=== PATIENT | female | born 1955 | race Caucasian/White ===

== ENCOUNTER 2018-10-25 17:16 | Inpatient (IN) | payer BC, OTHER ==
[2018-10-25] MEDS ORDERED: Sodium Chloride 0.9% 1,000 ML IV ONE (17:25)
[2018-10-25] MEDS ORDERED: Ondansetron 4 MG/2 ML SDV IVPUSH ONE (17:30)
--- NOTE | 2018-10-25 17:49 | EDM.PDOC ---
ED HPI GENERAL MEDICAL PROBLEM - General Chief Complaint: Syncope Stated Complaint: AMB Time Seen by Provider: 10/25/18 17:19 Source of Information: Reports: Patient History Limitations: Reports: No Limitations - History of Present Illness INITIAL COMMENTS - FREE TEXT/NARRATIVE: HISTORY AND PHYSICAL: History of present illness: Patient is a 63-year-old female presents to the ED today via EMS with concern of episodes of syncope occurring over the past 2 weeks. Patient states over the past 2-3 days she had an increase in frequency of the episodes. Patient states the episodes have usually happen while she is sitting on the couch and hasn't sustained any injuries. Patient states today she had walked out to get the mail and then felt dizzy and fell over. Patient states she has right knee pain, right shoulder pain, and head pain. Patient states she has also been vomiting over the past 4 days and is having lower abdominal pain that she rates a consistent 6 out of 10. Patient states she has a history of diverticulitis in the past and thought maybe this is what was oncoming again. Patient states she has not ate or drank since Thursday (3 days ago). Patient has a history of hypertension, and thyroid issues but she is not sure specifically as to what. Patient did have rotator cuff surgery at the beginning of August on the right shoulder as well as limited range of motion of that shoulder following the surgery. Patient denies fever, chills, chest pain, shortness of breath, or cough. Denies neck stiff ness, change in vision. Denies diarrhea, constipation, or dysuria. Has not noted any blood in urine or stool. Review of systems: As per history of present illness and below otherwise all systems reviewed and negative. Past medical history: As per history of present illness and as reviewed below otherwise noncontributory. Surgical history: As per history of present illness and as reviewed below otherwise noncontributory. Social history: See social history for further information Family history: As per history of present illness and as reviewed below otherwise noncontributory. Physical exam: Physical exam is limited due to body habitus. General: Patient is alert, oriented, and in no acute distress. Patient laying comfortably on exam table. HEENT: Atraumatic, normocephalic, pupils equal and reactive bilaterally, negative for conjunctival pallor or scleral icterus, mucous membranes dry, TMs normal bilaterally, throat clear, neck supple, nontender, trachea midline. No drooling or trismus noted. No meningeal signs. No hot potato voice noted. Lungs: Clear to auscultation, breath sounds equal bilaterally, chest nontender. Heart: S1S2, regular rate and rhythm without overt murmur Abdomen: Soft, nondistended. Moderate pain to palpation of the generalized lower abdomen. Negative for masses or hepatosplenomegaly. Negative for costovertebral tenderness. Pelvis: Stable nontender. Genitourinary: Deferred. Rectal: Deferred. Skin: Intact, warm, dry. No lesions or rashes noted. Extremities: Negative for cords or calf pain. Neurovascular unremarkable. No obvious deformities of the complete spine. No obvious step-offs, crepitus, or pain with palpation of the complete spine. Patient does have full range of motion of bilateral lower extremities with mild pain with range of motion of the right knee. No obvious deformities of the lower extremity. Limited range of motion of the right shoulder due to pain. Radial pulses grossly intact with capillary refill less than 2 seconds. Neuro: Awake, alert, oriented. Cranial nerves II through XII unremarkable. Cerebellum unremarkable. Motor and sensory unremarkable throughout. Exam nonfocal. Notes: Dr. Alvares verbally involved in patient care. Consult to Dr. Tong and will admit inpatient. Dr. Louie, general surgery, made aware of patient's case. Voices understanding and is agreeable to plan of care. Denies any further questions or concerns at this time. Diagnostics: CBC, CMP, UA, lactate, blood cultures x 2, head CT, shoulder x-ray, knee x-ray, chest x-ray, EKG, troponin, abdominal pelvic CT Therapeutics: Saline, Mefoxin Impression: Diverticulitis r/o abscess Syncope, unspecified Leukocytosis Dehydration Urinary tract infection Anemia, unspecified Hypokalemia Plan: 1. Admit to inpatient to Dr. Tong. Definitive disposition and diagnosis as appropriate pending reevaluation and review of above. right knee Pain Score (Numeric/FACES): 6 - Related Data Allergies Allergy/AdvReac Type Severity Reaction Status Date / Time ciprofloxacin [From Cipro] Allergy Swelling Verified 10/25/18 17:21 ciprofloxacin HCl Allergy Swelling Verified 10/25/18 17:21 [From Cipro] Home Meds: Home Meds DULoxetine [Cymbalta] 60 mg PO DAILY 12/22/13 [History] Estrogens, Conjugated [Premarin] 0.625 mg PO DAILY 12/22/13 [History] Levothyroxine Sodium 88 mcg PO DAILY 12/22/13 [History] Telmisartan [Micardis] 80 mg PO DAILY 12/22/13 [History] Cyanocobalamin (Vitamin B-12) [B-12 Compliance] 1,000 mcg IJ ASDIRECTED [History] Pantoprazole [ProTONIX] 40 mg PO DAILY 10/25/18 [History] Triamterene/Hydrochlorothiazid [Triamterene-HCTZ 37.5-25 MG] 1 each PO DAILY [History] Past Medical History Cardiovascular History: Reports: Hypertension Gastrointestinal History: Reports: GERD Psychiatric History: Reports: Mood Swings Endocrine/Metabolic History: Reports: Hyperthyroidism - Infectious Disease History Infectious Disease History: Reports: None - Past Surgical History Head Surgeries/Procedures: Reports: None Female Surgical History: Reports: Hysterectomy Social & Family History - Family History Family Medical History: Noncontributory - Tobacco Use Smoking Status *Q: Never Smoker - Recreational Drug Use Recreational Drug Use: No ED ROS GENERAL - Review of Systems Review Of Systems: ROS reveals no pertinent complaints other than HPI. ED EXAM, GENERAL - Physical Exam Exam: See Below (See dictation) Course - Vital Signs Last Recorded V/S: Last Vital Signs Temp 36.3 C 10/25/18 17:21 Pulse 72 10/25/18 20:19 Resp 18 10/25/18 20:19 BP 102/57 L 10/25/18 20:19 Pulse Ox 95 10/25/18 20:19 Orthostatic Blood Pressure [ 84/54 Standing] Orthostatic Blood Pressure [ 101/63 Sitting] Orthostatic Blood Pressure [ 92/49 Supine] - Orders/Labs/Meds Orders: Active Orders 24 hr Category Date Time Status Admission Status [Patient Status] [ADT] Stat ADT 10/25/18 20:17 Active EKG Documentation Completion [RC] STAT Care 10/25/18 17:25 Active Orthostatic Vital Signs [RC] ASDIRECTED Care 10/25/18 17:30 Active CULTURE BLOOD [BC] Stat Lab 10/25/18 20:15 Received CULTURE BLOOD [BC] Stat Lab 10/25/18 20:26 Received CULTURE URINE [RM] Stat Lab 10/25/18 19:45 Received Sodium Chloride 0.9% [Normal Saline] 1,000 ml Med 10/25/18 20:30 Active IV STAT cefOXitin [Mefoxin in Dextrose,Iso-Osm 2 GM/50 ML] 2 gm Med 10/25/18 20:30 Active Premix Bag 1 bag IV ONETIME Blood Culture x2 Reflex Set [OM.PC] Stat Oth 10/25/18 20:02 Ordered Medication Orders Sodium Chloride (Normal Saline) 1,000 mls @ 125 mls/hr IV STAT LATOYA Last Admin: 10/25/18 20:31 Dose: 125 mls/hr Cefoxitin Sodium 2 gm/ Premix 50 mls @ 100 mls/hr IV ONETIME ONE Stop: 10/25/18 20:59 Last Admin: 10/25/18 20:32 Dose: 100 mls/hr Labs: Laboratory Tests 10/25/18 10/25/18 10/25/18 Range/Units 17:20 17:20 17:20 WBC 14.52 H (4.0-11.0) K/uL RBC 3.97 L (4.30-5.90) M/uL Hgb 11.3 L (12.0-16.0) g/dL Hct 35.7 L (36.0-46.0) % MCV 89.9 (80.0-98.0) fL MCH 28.5 (27.0-32.0) pg MCHC 31.7 (31.0-37.0) g/dL RDW Std Deviation 46.8 (28.0-62.0) fl RDW Coeff of Fernando 14 (11.0-15.0) % Plt Count 507 H (150-400) K/uL MPV 8.50 (7.40-12.00) fL Neut % (Auto) 70.5 (48.0-80.0) % Lymph % (Auto) 20.5 (16.0-40.0) % [place] % (Auto) 8.1 (0.0-15.0) % Eos % (Auto) 0.8 (0.0-7.0) % Baso % (Auto) 0.1 (0.0-1.5) % Neut # (Auto) 10.2 H (1.4-5.7) K/uL Lymph # (Auto) 3.0 H (0.6-2.4) K/uL [place] # (Auto) 1.2 H (0.0-0.8) K/uL Eos # (Auto) 0.1 (0.0-0.7) K/uL Baso # (Auto) 0.0 (0.0-0.1) K/uL Nucleated RBC % 0.0 /100WBC Nucleated RBCs # 0 K/uL Lactate (0.20-2.00) mmol/L Sodium 139 (136-145) mmol/L Potassium 3.0 L (3.5-5.1) mmol/L Chloride 101 (98-107) mmol/L Carbon Dioxide 26.9 (21.0-32.0) mmol/L BUN 17 (7.0-18.0) mg/dL Creatinine 1.0 (0.6-1.0) mg/dL Est Cr Clr Drug Dosing 53.91 mL/min Estimated GFR (MDRD) 56.0 ml/min Glucose 112 H (74-106) mg/dL Calcium 10.4 H (8.5-10.1) mg/dL Total Bilirubin 0.4 (0.2-1.0) mg/dL AST 10 L (15-37) IU/L ALT 22 (14-63) IU/L Alkaline Phosphatase 77 (46-116) U/L Troponin I < 0.050 (0.000-0.056) ng/mL Total Protein 8.0 (6.4-8.2) g/dL Albumin 3.1 L (3.4-5.0) g/dL Globulin 4.9 H (2.6-4.0) g/dL Albumin/Globulin Ratio 0.6 L (0.9-1.6) Lipase 43 L (73-393) U/L TSH 3rd Generation 2.77 (0.36-3.74) uIU/mL Urine Color Urine Appearance Urine pH (5.0-8.0) Ur Specific Lincoln (1.001-1.035) Urine Protein (NEGATIVE) mg/dL Urine Glucose (UA) (NEGATIVE) mg/dL Urine Ketones (NEGATIVE) mg/dL Urine Occult Blood (NEGATIVE) Urine Nitrite (NEGATIVE) Urine Bilirubin (NEGATIVE) Urine Urobilinogen (<2.0) EU/dL Ur Leukocyte Esterase (NEGATIVE) Urine RBC (0-2/HPF) Urine WBC (0-5/HPF) Ur Epithelial Cells (NONE-FEW) Urine Bacteria (NEGATIVE) Hyaline Casts (0-2/LPF) 10/25/18 10/25/18 Range/Units 19:45 20:02 WBC (4.0-11.0) K/uL RBC (4.30-5.90) M/uL Hgb (12.0-16.0) g/dL Hct (36.0-46.0) % MCV (80.0-98.0) fL MCH (27.0-32.0) pg MCHC (31.0-37.0) g/dL RDW Std Deviation (28.0-62.0) fl RDW Coeff of Fernando (11.0-15.0) % Plt Count (150-400) K/uL MPV (7.40-12.00) fL Neut % (Auto) (48.0-80.0) % Lymph % (Auto) (16.0-40.0) % [place] % (Auto) (0.0-15.0) % Eos % (Auto) (0.0-7.0) % Baso % (Auto) (0.0-1.5) % Neut # (Auto) (1.4-5.7) K/uL Lymph # (Auto) (0.6-2.4) K/uL [place] # (Auto) (0.0-0.8) K/uL Eos # (Auto) (0.0-0.7) K/uL Baso # (Auto) (0.0-0.1) K/uL Nucleated RBC % /100WBC Nucleated RBCs # K/uL Lactate 0.7 (0.20-2.00) mmol/L Sodium (136-145) mmol/L Potassium (3.5-5.1) mmol/L Chloride (98-107) mmol/L Carbon Dioxide (21.0-32.0) mmol/L BUN (7.0-18.0) mg/dL Creatinine (0.6-1.0) mg/dL Est Cr Clr Drug Dosing mL/min Estimated GFR (MDRD) ml/min Glucose (74-106) mg/dL Calcium (8.5-10.1) mg/dL Total Bilirubin (0.2-1.0) mg/dL AST (15-37) IU/L ALT (14-63) IU/L Alkaline Phosphatase (46-116) U/L Troponin I (0.000-0.056) ng/mL Total Protein (6.4-8.2) g/dL Albumin (3.4-5.0) g/dL Globulin (2.6-4.0) g/dL Albumin/Globulin Ratio (0.9-1.6) Lipase (73-393) U/L TSH 3rd Generation (0.36-3.74) uIU/mL Urine Color YELLOW Urine Appearance SLT CLOUDY Urine pH 6.5 (5.0-8.0) Ur Specific Lincoln 1.010 (1.001-1.035) Urine Protein NEGATIVE (NEGATIVE) mg/dL Urine Glucose (UA) NEGATIVE (NEGATIVE) mg/dL Urine Ketones NEGATIVE (NEGATIVE) mg/dL Urine Occult Blood NEGATIVE (NEGATIVE) Urine Nitrite NEGATIVE (NEGATIVE) Urine Bilirubin NEGATIVE (NEGATIVE) Urine Urobilinogen 0.2 (<2.0) EU/dL Ur Leukocyte Esterase SMALL H (NEGATIVE) Urine RBC 0-2 (0-2/HPF) Urine WBC 4-7 (0-5/HPF) Ur Epithelial Cells FEW (NONE-FEW) Urine Bacteria 1+ H (NEGATIVE) Hyaline Casts 0-1 (0-2/LPF) Meds: Medications Generic Name Dose Route Start Last Admin Trade Name Freq PRN Reason Stop Dose Admin Sodium Chloride 1,000 mls @ 125 mls/hr 10/25/18 20:30 10/25/18 20:31 Normal Saline IV 125 mls/hr STAT LATOYA Administration Cefoxitin Sodium 2 gm/ Premix 50 mls @ 100 mls/hr 10/25/18 20:30 10/25/18 20: 32 IV 10/25/18 20:59 100 mls/hr ONETIME ONE Administration Discontinued Medications Generic Name Dose Route Start Last Admin Trade Name Freq PRN Reason Stop Dose Admin Sodium Chloride 1,000 mls @ 999 mls/hr 10/25/18 17:25 10/25/18 17:32 Normal Saline IV 10/25/18 18:25 999 mls/hr BOLUS ONE Administration Cefoxitin Sodium 2 gm/ Sodium 100 mls @ 200 mls/hr 10/25/18 20:15 10/25/18 20 :31 Chloride IV 10/25/18 20:44 Not Given ONETIME ONE Iopamidol 80 ml 10/25/18 18:42 10/25/18 18:42 Isovue Multipack-370 (76%) IVPUSH 10/25/18 18:43 80 ml ONETIME STA Administration Ondansetron HCl 4 mg 10/25/18 17:30 10/25/18 17:34 Zofran IVPUSH 10/25/18 17:31 4 mg ONETIME ONE Administration Departure - Departure Time of Disposition: 20:29 Disposition: Admitted As Inpatient 66 Clinical Impression: Diverticulitis, Dehydration, Hypokalemia Leukocytosis Qualifiers: Leukocytosis type: unspecified Qualified Code(s): D72.829 - Elevated white blood cell count, unspecified Anemia Qualifiers: Anemia type: unspecified type Qualified Code(s): D64.9 - Anemia, unspecified Urinary tract infection Qualifiers: Urinary tract infection type: acute cystitis Hematuria presence: without hematuria Qualified Code(s): N30.00 - Acute cystitis without hematuria Syncope Qualifiers: Syncope type: unspecified Qualified Code(s): R55 - Syncope and collapse - Discharge Information Referrals: Arun Ac [Primary Care Provider] - Forms: ED Department Discharge - My Orders Last 24 Hours: My Active Orders 10/25/18 17:25 EKG Documentation Completion [RC] STAT 10/25/18 17:30 Orthostatic Vital Signs [RC] ASDIRECTED 10/25/18 19:45 CULTURE URINE [RM] Stat 10/25/18 20:02 Blood Culture x2 Reflex Set [OM.PC] Stat 10/25/18 20:15 CULTURE BLOOD [BC] Stat 10/25/18 20:17 Admission Status [Patient Status] [ADT] Stat 10/25/18 20:26 CULTURE BLOOD [BC] Stat 10/25/18 20:30 Sodium Chloride 0.9% [Normal Saline] 1,000 ml IV STAT cefOXitin [Mefoxin in Dextrose,Iso-Osm 2 GM/50 ML] 2 gm Premix Bag 1 bag IV ONETIME - Assessment/Plan Last 24 Hours: My Active Orders 10/25/18 17:25 EKG Documentation Completion [RC] STAT 10/25/18 17:30 Orthostatic Vital Signs [RC] ASDIRECTED 10/25/18 19:45 CULTURE URINE [RM] Stat 10/25/18 20:02 Blood Culture x2 Reflex Set [OM.PC] Stat 10/25/18 20:15 CULTURE BLOOD [BC] Stat 10/25/18 20:17 Admission Status [Patient Status] [ADT] Stat 10/25/18 20:26 CULTURE BLOOD [BC] Stat 10/25/18 20:30 Sodium Chloride 0.9% [Normal Saline] 1,000 ml IV STAT cefOXitin [Mefoxin in Dextrose,Iso-Osm 2 GM/50 ML] 2 gm Premix Bag 1 bag IV ONETIME
[2018-10-25 18:00] LABS: BLOOD UREA NITROGEN,BUN 17 mg/dL (7.0-18.0); CARBON DIOXIDE,CO2 26.9 mmol/L (21.0-32.0); CHLORIDE,CL 101 mmol/L (98-107); GLUCOSE RANDOM 112 mg/dL (74-106); SODIUM,NA 139 mmol/L (136-145)
[2018-10-25] MEDS ORDERED: Iopamidol 755 MG/ML 500 ML Multipack Bottle IVPUSH STA (18:42)
--- NOTE | 2018-10-25 19:34 | CR ---
INDICATION: Knee pain, fall from syncope TECHNIQUE: Knee radiograph 3 views right COMPARISON: None FINDINGS: Bone: No acute fractures or aggressive bone lesions are identified. A small corticated ossicle is noted along the superior margin of the patella. Joint: The joint spaces of the medial, lateral, and patellofemoral compartments are unremarkable. No significant knee effusion is seen. Soft tissue: Unremarkable. No radiopaque foreign bodies are seen. IMPRESSION: 1. No acute osseous injuries or abnormalities are noted. Dictated by: Mustapha Petersen MD @ 10/25/2018 19:32:51 (Electronically Signed)
--- NOTE | 2018-10-25 19:34 | CR ---
INDICATION: Shoulder pain, fall from syncope TECHNIQUE: Shoulder radiograph 3 views right COMPARISON: None FINDINGS: Bone: No acute fractures or aggressive bone lesions are identified. Moderate diffuse osteopenia is noted. Joint: The glenohumeral is unremarkable. The acromioclavicular joint is unremarkable. Soft tissue: Unremarkable. The visualized hemithorax is unremarkable in appearance. No radiopaque foreign bodies are seen. IMPRESSION: 1. No acute osseous injuries or abnormalities are noted. Dictated by: Mustapha Petersen MD @ 10/25/2018 19:33:26 (Electronically Signed)
--- NOTE | 2018-10-25 19:34 | CR ---
INDICATION: Syncope TECHNIQUE: Chest radiograph 1 view COMPARISON: None FINDINGS: Mediastinum: The mediastinum is normal in appearance. The heart silhouette is normal in size and morphology. Lung: Both lungs are unremarkable in appearance. No sign of pleural effusion seen. No pneumothorax is identified. IMPRESSION: 1. No acute cardiopulmonary disease is seen. Dictated by: Mustapha Petersen MD @ 10/25/2018 19:32:03 (Electronically Signed)
--- NOTE | 2018-10-25 19:38 | CT ---
INDICATION: Syncope TECHNIQUE: CT Head without i.v. contrast. COMPARISON: None FINDINGS: CSF space: The ventricles are normal for age. Brain: No evidence of mass, acute infarction or hemorrhage is seen. No mass-effect or midline shift is seen. The brain parenchyma is otherwise normal in appearance with preservation of the marte-white matter junction. Calvarium: The visualized paranasal sinuses are well aerated. The mastoid air cells are clear. The visualized orbits are grossly unremarkable. The calvarium is unremarkable in appearance with no fractures identified. IMPRESSION: 1. No evidence of acute infarction, intracranial hemorrhage, or mass-effect seen. Please note that all CT scans at this facility use dose modulation, iterative reconstruction, and/or weight-based dosing when appropriate to reduce radiation dose to as low as reasonably achievable. Dictated by: Mustapha Petersen MD @ 10/25/2018 19:35:52 (Electronically Signed)
--- NOTE | 2018-10-25 19:59 | CT ---
INDICATION: Lower abdominal pain TECHNIQUE: CT Abdomen and pelvis with i.v. contrast. Coronal and sagittal reformats were obtained. CONTRAST: 100 mL Isovue 370 COMPARISON: None FINDINGS: Lower chest: Unremarkable. Liver: There is a 2.8 cm cyst present in the liver dome. In the left lateral segment of the liver, there is a 3.8 cm hypodense lesion with posterior nodular enhancement noted. This may represent a liver hemangioma. A 6 mm hypodense lesion is seen in the right anterior segment of the liver on image 41, too small to further characterize. Spleen: Unremarkable. Pancreas: Unremarkable. Gallbladder: Unremarkable. Kidney: Small cortical cyst present in the kidneys bilaterally measuring up to 11 mm. Adrenal: Unremarkable. Bowel: Severe wall thickening with diverticulosis seen in the sigmoid colon with surrounding inflammatory changes. The appendix is normal in appearance and size. Vascular: Moderate diffuse atherosclerotic calcifications of the abdominal aorta and its tributaries are present. Lymph: Unremarkable. Peritoneum: Unremarkable. No pneumoperitoneum is seen. A small amount of pelvic ascites is present. Pelvis: The patient is status post prior hysterectomy. There is an ill-defined fluid collection in the pelvis measuring 4.4 x 3.6 cm. Soft tissue: Unremarkable. Bone: Unremarkable for age. IMPRESSIONS: 1. Severe wall thickening with diverticulosis seen in the sigmoid colon with surrounding inflammatory changes. Findings are consistent with acute diverticulitis or colitis with suspected perforation. 2. There is an ill-defined fluid collection in the pelvis measuring 4.4 x 3.6 cm. Findings may be due to phlegmon or developing pelvic abscess. Dictated by Mustapha Petersen MD @ 10/25/2018 7:57:46 PM Please note that all CT scans at this facility use dose modulation, iterative reconstruction, and/or weight-based dosing when appropriate to reduce radiation dose to as low as reasonably achievable. Dictated by: Mustapha Petersen MD @ 10/25/2018 19:57:56 (Electronically Signed)
[2018-10-25] MEDS ORDERED: cefOXitin 2 GM in Sodium Chloride 0.9% 100 ML IV ONE (20:15)
[2018-10-25] MEDS ORDERED: cefOXitin 2 GM in Premix Bag 1 BAG IV ONE (20:30)
[2018-10-25] MEDS: Sodium Chloride 0.9% 1,000 ML IV SCH ×2 (20:31→21:43)
--- NOTE | 2018-10-25 20:55 | PCM.CONS ---
H&P History of Present Illness - General Date of Service: 10/25/18 Admit Problem/Dx: Admission Diagnosis/Problem Admission Diagnosis/Problem Diverticulitis Source of Information: Patient History Limitations: Reports: No Limitations - History of Present Illness Initial Comments - Free Text/Narative: Patient is a 63-year-old female who presented to the emergency room [facility] complaining of progressive abdominal pain with nausea and vomiting. Her pain began this past Thursday. She also had a syncopal episode which really prompted her admission. On evaluation she was noted to have significant abdominal pain. She had a moderate leukocytosis. With her abdominal pain. A CT scan of the abdomen was obtained which shows an acute diverticulitis with phlegmon and possibly an abscess. There was no mention of pneumoperitoneum. Symptom Onset Date: 10/22/18 Duration of Symptoms: Reports: Day(s): Location: Reports: Abdomen, Back, Pelvis Quality: Reports: Pressure Severity: Moderate Improves with: Reports: Rest Worsens with: Reports: Movement Context: Reports: Sick Contact Associated Symptoms: Reports: Diaphoresis, Loss of Appetite, Nausea/Vomiting, Syncope right knee Pain Score (Numeric/FACES): 6 - Related Data Allergies/Adverse Reactions: Allergies Allergy/AdvReac Type Severity Reaction Status Date / Time ciprofloxacin [From Cipro] Allergy Swelling Verified 10/25/18 17:21 ciprofloxacin HCl Allergy Swelling Verified 10/25/18 17:21 [From Cipro] Home Medications: Home Meds DULoxetine [Cymbalta] 60 mg PO DAILY 12/22/13 [History] Estrogens, Conjugated [Premarin] 0.625 mg PO DAILY 12/22/13 [History] Levothyroxine Sodium 88 mcg PO DAILY 12/22/13 [History] Telmisartan [Micardis] 80 mg PO DAILY 12/22/13 [History] Cyanocobalamin (Vitamin B-12) [B-12 Compliance] 1,000 mcg IJ ASDIRECTED [History] Pantoprazole [ProTONIX] 40 mg PO DAILY 10/25/18 [History] Triamterene/Hydrochlorothiazid [Triamterene-HCTZ 37.5-25 MG] 1 each PO DAILY [History] Past Medical History Cardiovascular History: Reports: Hypertension Gastrointestinal History: Reports: Colon Polyp, Diverticulosis, GERD Psychiatric History: Reports: Mood Swings Endocrine/Metabolic History: Reports: Hyperthyroidism - Infectious Disease History Infectious Disease History: Reports: None - Past Surgical History Head Surgeries/Procedures: Reports: None Female Surgical History: Reports: Hysterectomy, Salpingo-Oophorectomy ( Bilateral) Social & Family History - Family History Family Medical History: Noncontributory Oncologic: Reports: Colon - Tobacco Use Smoking Status *Q: Never Smoker - Recreational Drug Use Recreational Drug Use: No Drug Use in Last 12 Months: No H&P Review of Systems - Review of Systems: Review Of Systems: See Below General: Reports: Malaise, Diaphoresis, Decreased Appetite. Denies: Chills HEENT: Reports: No Symptoms Pulmonary: Denies: Shortness of Breath, Wheezing, Cough, Sputum Cardiovascular: Reports: Syncope. Denies: Chest Pain Gastrointestinal: Reports: Abdominal Pain, Anorexia, Diarrhea, Decreased Appetite, Flatus (But less than usual), Nausea, Vomiting. Denies: Black Stool, Bloody Stool, Constipation, Distension, Hematemesis, Hematochezia, Melena Genitourinary: Denies: Dysuria, Frequency, Burning, Pain, Urgency Musculoskeletal: Reports: No Symptoms Skin: Denies: Jaundice Psychiatric: Denies: Confusion, Depression, Mood Lability, Anxiety Neurological: Reports: No Symptoms Hematologic/Lymphatic: Reports: Anemia. Denies: Easy Bleeding, Easy Bruising Immunologic: Reports: No Symptoms Exam - Exam Exam: See Below - Vital Signs Vital Signs: Last Vital Signs Temp 97.3 F 10/25/18 17:21 Pulse 72 10/25/18 20:19 Resp 18 10/25/18 20:19 BP 102/57 L 10/25/18 20:19 Pulse Ox 95 10/25/18 20:19 Orthostatic Blood Pressure [ 84/54 Standing] Orthostatic Blood Pressure [ 101/63 Sitting] Orthostatic Blood Pressure [ 92/49 Supine] Weight: 190 lb - Exam Quality Assessment: No: Supplemental Oxygen, Central Line/PICC, Urinary Catheter General: Alert, Oriented, Cooperative, Mild Distress HEENT: Conjunctiva Clear, Pupils Equal, Pupils Reactive, PERRLA. No: Scleral Icterus Neck: Supple, Trachea Midline, +2 Carotid Pulse wo Bruit Lungs: Clear to Auscultation, Normal Respiratory Effort Cardiovascular: Regular Rate, Regular Rhythm. No: Tachycardia GI/Abdominal Exam: Normal Bowel Sounds, Soft, No Mass, Rebound, Tender. No: Distended, Guarding, Rigid, Mass (Female) Exam: Deferred Rectal (Female) Exam: Deferred Back Exam: Normal Inspection Extremities: Normal Inspection, Normal Range of Motion Peripheral Pulses: 4+: Posterior Tibial (L), Posterior Tibial (R), Dorsalis Pedis (L), Dorsalis Pedis (R) Skin: Warm, Dry, Intact Neurological: Cranial Nerves Intact, Reflexes Equal Bilateral Psychiatric: Alert, Normal Affect, Normal Mood - Patient Data Lab Results Last 24 hrs: Laboratory Results - last 24 hr 10/25/18 10/25/18 10/25/18 Range/Units 17:20 17:20 17:20 WBC 14.52 H (4.0-11.0) K/uL RBC 3.97 L (4.30-5.90) M/uL Hgb 11.3 L (12.0-16.0) g/dL Hct 35.7 L (36.0-46.0) % MCV 89.9 (80.0-98.0) fL MCH 28.5 (27.0-32.0) pg MCHC 31.7 (31.0-37.0) g/dL RDW Std Deviation 46.8 (28.0-62.0) fl RDW Coeff of Fernando 14 (11.0-15.0) % Plt Count 507 H (150-400) K/uL MPV 8.50 (7.40-12.00) fL Neut % (Auto) 70.5 (48.0-80.0) % Lymph % (Auto) 20.5 (16.0-40.0) % [place] % (Auto) 8.1 (0.0-15.0) % Eos % (Auto) 0.8 (0.0-7.0) % Baso % (Auto) 0.1 (0.0-1.5) % Neut # (Auto) 10.2 H (1.4-5.7) K/uL Lymph # (Auto) 3.0 H (0.6-2.4) K/uL [place] # (Auto) 1.2 H (0.0-0.8) K/uL Eos # (Auto) 0.1 (0.0-0.7) K/uL Baso # (Auto) 0.0 (0.0-0.1) K/uL Nucleated RBC % 0.0 /100WBC Nucleated RBCs # 0 K/uL Lactate (0.20-2.00) mmol/L Sodium 139 (136-145) mmol/L Potassium 3.0 L (3.5-5.1) mmol/L Chloride 101 (98-107) mmol/L Carbon Dioxide 26.9 (21.0-32.0) mmol/L BUN 17 (7.0-18.0) mg/dL Creatinine 1.0 (0.6-1.0) mg/dL Est Cr Clr Drug Dosing 53.91 mL/min Estimated GFR (MDRD) 56.0 ml/min Glucose 112 H (74-106) mg/dL Calcium 10.4 H (8.5-10.1) mg/dL Total Bilirubin 0.4 (0.2-1.0) mg/dL AST 10 L (15-37) IU/L ALT 22 (14-63) IU/L Alkaline Phosphatase 77 (46-116) U/L Troponin I < 0.050 (0.000-0.056) ng/mL Total Protein 8.0 (6.4-8.2) g/dL Albumin 3.1 L (3.4-5.0) g/dL Globulin 4.9 H (2.6-4.0) g/dL Albumin/Globulin Ratio 0.6 L (0.9-1.6) Lipase 43 L (73-393) U/L TSH 3rd Generation 2.77 (0.36-3.74) uIU/mL Urine Color Urine Appearance Urine pH (5.0-8.0) Ur Specific [place] (1.001-1.035) Urine Protein (NEGATIVE) mg/dL Urine Glucose (UA) (NEGATIVE) mg/dL Urine Ketones (NEGATIVE) mg/dL Urine Occult Blood (NEGATIVE) Urine Nitrite (NEGATIVE) Urine Bilirubin (NEGATIVE) Urine Urobilinogen (<2.0) EU/dL Ur Leukocyte Esterase (NEGATIVE) Urine RBC (0-2/HPF) Urine WBC (0-5/HPF) Ur Epithelial Cells (NONE-FEW) Urine Bacteria (NEGATIVE) Hyaline Casts (0-2/LPF) 10/25/18 10/25/18 Range/Units 19:45 20:02 WBC (4.0-11.0) K/uL RBC (4.30-5.90) M/uL Hgb (12.0-16.0) g/dL Hct (36.0-46.0) % MCV (80.0-98.0) fL MCH (27.0-32.0) pg MCHC (31.0-37.0) g/dL RDW Std Deviation (28.0-62.0) fl RDW Coeff of Fernando (11.0-15.0) % Plt Count (150-400) K/uL MPV (7.40-12.00) fL Neut % (Auto) (48.0-80.0) % Lymph % (Auto) (16.0-40.0) % [place] % (Auto) (0.0-15.0) % Eos % (Auto) (0.0-7.0) % Baso % (Auto) (0.0-1.5) % Neut # (Auto) (1.4-5.7) K/uL Lymph # (Auto) (0.6-2.4) K/uL [place] # (Auto) (0.0-0.8) K/uL Eos # (Auto) (0.0-0.7) K/uL Baso # (Auto) (0.0-0.1) K/uL Nucleated RBC % /100WBC Nucleated RBCs # K/uL Lactate 0.7 (0.20-2.00) mmol/L Sodium (136-145) mmol/L Potassium (3.5-5.1) mmol/L Chloride (98-107) mmol/L Carbon Dioxide (21.0-32.0) mmol/L BUN (7.0-18.0) mg/dL Creatinine (0.6-1.0) mg/dL Est Cr Clr Drug Dosing mL/min Estimated GFR (MDRD) ml/min Glucose (74-106) mg/dL Calcium (8.5-10.1) mg/dL Total Bilirubin (0.2-1.0) mg/dL AST (15-37) IU/L ALT (14-63) IU/L Alkaline Phosphatase (46-116) U/L Troponin I (0.000-0.056) ng/mL Total Protein (6.4-8.2) g/dL Albumin (3.4-5.0) g/dL Globulin (2.6-4.0) g/dL Albumin/Globulin Ratio (0.9-1.6) Lipase (73-393) U/L TSH 3rd Generation (0.36-3.74) uIU/mL Urine Color YELLOW Urine Appearance SLT CLOUDY Urine pH 6.5 (5.0-8.0) Ur Specific [place] 1.010 (1.001-1.035) Urine Protein NEGATIVE (NEGATIVE) mg/dL Urine Glucose (UA) NEGATIVE (NEGATIVE) mg/dL Urine Ketones NEGATIVE (NEGATIVE) mg/dL Urine Occult Blood NEGATIVE (NEGATIVE) Urine Nitrite NEGATIVE (NEGATIVE) Urine Bilirubin NEGATIVE (NEGATIVE) Urine Urobilinogen 0.2 (<2.0) EU/dL Ur Leukocyte Esterase SMALL H (NEGATIVE) Urine RBC 0-2 (0-2/HPF) Urine WBC 4-7 (0-5/HPF) Ur Epithelial Cells FEW (NONE-FEW) Urine Bacteria 1+ H (NEGATIVE) Hyaline Casts 0-1 (0-2/LPF) Result Diagrams: 10/25/18 17:20 10/25/18 17:20 Consult PN Assessment/Plan Procedures: Procedures COLONOSCOPY AND BIOPSY (12/23/13) COMPREHEN METABOLIC PANEL (11/09/17) CRYPTOSPORIDIUM AG IA (09/02/13) CT ABD & PELV 1/> REGNS (08/12/17) EMERGENCY DEPT VISIT (10/08/15) GIARDIA AG IA (09/02/13) MRI BRAIN STEM W/O & W/DYE (09/07/15) MRI BRAIN STEM W/O DYE (12/24/17) MRI LUMBAR SPINE W/O & W/DYE (12/24/17) MRI LWR EXTREMITY W/O&W/DYE (12/24/17) MRI NECK SPINE W/O DYE (09/07/15) ROUTINE VENIPUNCTURE (11/09/17) STOOL CULTR AEROBIC BACT EA (09/02/13) TISSUE EXAM BY PATHOLOGIST (12/23/13) X-RAY EXAM L-S SPINE 2/3 VWS (07/06/15) X-RAY EXAM OF ANKLE (10/08/15) X-RAY EXAM OF FOOT (12/20/15) X-RAY EXAM OF SHOULDER (10/10/15) (1) Pelvic fluid collection SNOMED Code(s): 400520788, 652424093 Code(s): R18.8 - OTHER ASCITES Priority: Medium Current Visit: Yes (2) Pericolonic abscess due to diverticulitis SNOMED Code(s): 563733353 Code(s): K57.20 - DVTRCLI OF LG INT W PERFORATION AND ABSCESS W/O BLEEDING Priority: High Current Visit: Yes (3) Anemia SNOMED Code(s): 890397555 Code(s): D64.9 - ANEMIA, UNSPECIFIED Priority: Medium Current Visit: Yes Qualifiers: Anemia type: unspecified type Qualified Code(s): D64.9 - Anemia, unspecified (4) Dehydration SNOMED Code(s): 52877456 Code(s): E86.0 - DEHYDRATION Priority: Medium Current Visit: Yes (5) Diverticulitis SNOMED Code(s): 647700774 Code(s): K57.92 - DVTRCLI OF INTEST, PART UNSP, W/O PERF OR ABSCESS W/O BLEED Priority: High Current Visit: Yes (6) Leukocytosis SNOMED Code(s): 983993816, 608971683 Code(s): D72.829 - ELEVATED WHITE BLOOD CELL COUNT, UNSPECIFIED Priority: High Current Visit: Yes Qualifiers: Leukocytosis type: unspecified Qualified Code(s): D72.829 - Elevated white blood cell count, unspecified (7) Syncope SNOMED Code(s): 938597137 Code(s): R55 - SYNCOPE AND COLLAPSE Priority: Medium Current Visit: Yes Qualifiers: Syncope type: unspecified Qualified Code(s): R55 - Syncope and collapse Problem List Initiated/Reviewed/Updated: Yes Plan: CT scan has been personally reviewed. There is definitely a pelvic fluid collection adjacent to the colon. There is significant sigmoid diverticulitis with either reaction, phlegmon or abscess. There was no evidence of a pneumoperitoneum. Several treatment options have been discussed with the patient and her family. These include conservative therapy with a trial of parenteral antibiotics. Interventional radiologic consultation for placement of a drainage catheter, laparoscopy with laparoscopic washout, laparoscopy with sigmoid resection and possible stoma, and laparotomy with resection and stoma have all been reviewed with the patient and her family. I would favor a most conservative approach of possible and would certainly prefer to see interventional radiology place a catheter or possibly have the patient undergo laparoscopy with washout in hopes of avoiding an emergent resection and/or stoma. We also do not have stomal nurses here in [place] and therefore I did suggest they consider transfer to either Dr. Carter or Dr. Tan at [facility] in [place], [place].
[2018-10-25] MEDS ORDERED: Acetaminophen 325 MG Tab PO PRN (21:04)
[2018-10-25] MEDS ORDERED: Morphine 2 MG/ML Syringe IVPUSH PRN (21:05)
[2018-10-25] MEDS ORDERED: Levofloxacin/Dextrose 5%-Water 500 MG in Premix Bag 1 BAG IV SCH (21:15)
[2018-10-25] MEDS ORDERED: Sodium Chloride 0.9% 1,000 ML IV SCH (21:15)
[2018-10-25] MEDS: Ondansetron 4 MG/2 ML SDV IVPUSH PRN (21:36)
[2018-10-25] MEDS: oxyCODONE 5 MG Tab PO PRN (21:36)
[2018-10-26] MEDS: metroNIDAZOLE/Normal Saline 500 MG in Premix Bag 1 BAG IV SCH ×3 (00:38→12:17)
[2018-10-26] MEDS: oxyCODONE 5 MG Tab PO PRN ×3 (01:48→13:29)
[2018-10-26] MEDS: Sodium Chloride 0.9% 1,000 ML IV SCH ×2 (04:39→12:18)
[2018-10-26 06:03] LABS: BLOOD UREA NITROGEN,BUN 15 mg/dL (7.0-18.0); CARBON DIOXIDE,CO2 27.6 mmol/L (21.0-32.0); CHLORIDE,CL 106 mmol/L (98-107); GLUCOSE RANDOM 104 mg/dL (74-106); POTASSIUM,K 2.9 mmol/L (3.5-5.1); SODIUM,NA 140 mmol/L (136-145)
[2018-10-26] MEDS ORDERED: Enoxaparin 40 MG/0.4 ML Syringe SUBCUT SCH (07:00)
--- NOTE | 2018-10-26 07:02 | PCM.HP ---
H&P History of Present Illness - General Date of Service: 10/26/18 Admit Problem/Dx: Admission Diagnosis/Problem Admission Diagnosis/Problem Diverticulitis Source of Information: Patient History Limitations: Reports: No Limitations - History of Present Illness Initial Comments - Free Text/Narative: The patient is a 63-year-old lady who had presented to the emergency department with a complaint of abdominal pain with nausea and vomiting. The patient reports that she has had the pain for approximately 3 days. Patient says that the pain is located in the lower part of her abdomen and she has described as sharp and stabbing and it does not radiate. The patient can pinpoint pain on examination. Also, the patient reports that for the past month she has been having episodes of syncope that had resulted in injury. The patient says that these episodes are occurring sometimes to 3 times a day. She has described the sensation as getting flushed, weak and wobbly and then passing out. Also the patient has had dizziness when getting up quickly. The patient also reports that she will wake up pretty quickly after a few seconds. The patient has not started on any new medication. The patient has been taking medication for her blood pressure as well as menopausal symptoms. Onset of Symptoms: Reports: Gradual Duration of Symptoms: Reports: Day(s): Location: Reports: Abdomen, Generalized Quality: Reports: Sharp, Stabbing, Throbbing Severity: Moderate Improves with: Reports: Medication Worsens with: Reports: Eating, Movement Associated Symptoms: Reports: Nausea/Vomiting, Syncope Lower Abdomen Pain Score (Numeric/FACES): 4 right knee Pain Score (Numeric/FACES): 6 - Related Data Allergies/Adverse Reactions: Allergies Allergy/AdvReac Type Severity Reaction Status Date / Time ciprofloxacin [From Cipro] Allergy Swelling Verified 10/25/18 17:21 ciprofloxacin HCl Allergy Swelling Verified 10/25/18 17:21 [From Cipro] Home Medications: Home Meds DULoxetine [Cymbalta] 60 mg PO DAILY 12/22/13 [History] Estrogens, Conjugated [Premarin] 0.625 mg PO DAILY 12/22/13 [History] Levothyroxine Sodium 88 mcg PO DAILY 12/22/13 [History] Telmisartan [Micardis] 80 mg PO DAILY 12/22/13 [History] Cyanocobalamin (Vitamin B-12) [B-12 Compliance] 1,000 mcg IJ ASDIRECTED [History] Pantoprazole [ProTONIX] 40 mg PO DAILY 10/25/18 [History] Triamterene/Hydrochlorothiazid [Triamterene-HCTZ 37.5-25 MG] 1 each PO DAILY [History] Past Medical History HEENT History: Reports: None Cardiovascular History: Reports: Hypertension Respiratory History: Reports: None Gastrointestinal History: Reports: Colon Polyp, Diverticulosis, GERD Genitourinary History: Reports: None Musculoskeletal History: Reports: None Neurological History: Reports: None Psychiatric History: Reports: Mood Swings Endocrine/Metabolic History: Reports: Hyperthyroidism Hematologic History: Reports: None Immunologic History: Reports: None Oncologic (Cancer) History: Reports: None Dermatologic History: Reports: None - Infectious Disease History Infectious Disease History: Reports: None - Past Surgical History Head Surgeries/Procedures: Reports: None Cardiovascular Surgical History: Reports: None GI Surgical History: Reports: None Female Surgical History: Reports: Hysterectomy, Salpingo-Oophorectomy Endocrine Surgical History: Reports: None Musculoskeletal Surgical History: Reports: Shoulder Surgery Social & Family History - Family History Family Medical History: Noncontributory Oncologic: Reports: Colon - Tobacco Use Smoking Status *Q: Never Smoker Second Hand Smoke Exposure: No - Caffeine Use Caffeine Use: Reports: Soda Other Caffeine Use: daily diet coke - Recreational Drug Use Recreational Drug Use: No Drug Use in Last 12 Months: No - Living Situation & Occupation Living situation: Reports: , with Family Occupation: Employed H&P Review of Systems - Review of Systems: Review Of Systems: See Below General: Reports: Weakness HEENT: Reports: No Symptoms Pulmonary: Reports: No Symptoms Cardiovascular: Reports: No Symptoms Gastrointestinal: Reports: Abdominal Pain, Nausea, Vomiting Genitourinary: Reports: No Symptoms Musculoskeletal: Reports: No Symptoms Skin: Reports: No Symptoms Psychiatric: Reports: No Symptoms Neurological: Reports: Dizziness, Syncope Hematologic/Lymphatic: Reports: No Symptoms Immunologic: Reports: No Symptoms Exam - Exam Exam: See Below - Vital Signs Vital Signs: Last Vital Signs Temp 36.2 C 10/26/18 01:00 Pulse 74 10/26/18 01:00 Resp 16 10/26/18 01:00 BP 97/57 L 10/26/18 01:00 Pulse Ox 97 10/26/18 01:00 Orthostatic Blood Pressure [ 84/54 Standing] Orthostatic Blood Pressure [ 101/63 Sitting] Orthostatic Blood Pressure [ 92/49 Supine] Weight: 96 kg - Exam Quality Assessment: No: Supplemental Oxygen General: Alert, Oriented, Cooperative HEENT: Conjunctiva Clear, EACs Clear, EOMI, Hearing Intact, Mucosa Moist & [place] , Pupils Equal, PERRLA Neck: Supple, Trachea Midline Lungs: Clear to Auscultation, Normal Respiratory Effort Cardiovascular: Regular Rate, Regular Rhythm GI/Abdominal Exam: Soft, Tender (Suprapubic to left lower quadrant). No: Normal Bowel Sounds (Hypoactive), No Distention, Guarding, Rigid, Rebound Back Exam: Normal Inspection, Full Range of Motion Extremities: Normal Inspection, Normal Range of Motion, Pedal Edema (Trace) Skin: Warm, Dry, Intact Neurological: Cranial Nerves Intact Neuro Extensive - Mental Status: Alert, Oriented x3 Psychiatric: Alert, Normal Affect, Normal Mood - Patient Data Lab Results Last 24 hrs: Laboratory Results - last 24 hr 10/25/18 10/25/18 10/25/18 Range/Units 17:20 17:20 17:20 WBC 14.52 H (4.0-11.0) K/uL RBC 3.97 L (4.30-5.90) M/uL Hgb 11.3 L (12.0-16.0) g/dL Hct 35.7 L (36.0-46.0) % MCV 89.9 (80.0-98.0) fL MCH 28.5 (27.0-32.0) pg MCHC 31.7 (31.0-37.0) g/dL RDW Std Deviation 46.8 (28.0-62.0) fl RDW Coeff of Fernando 14 (11.0-15.0) % Plt Count 507 H (150-400) K/uL MPV 8.50 (7.40-12.00) fL Neut % (Auto) 70.5 (48.0-80.0) % Lymph % (Auto) 20.5 (16.0-40.0) % [place] % (Auto) 8.1 (0.0-15.0) % Eos % (Auto) 0.8 (0.0-7.0) % Baso % (Auto) 0.1 (0.0-1.5) % Neut # (Auto) 10.2 H (1.4-5.7) K/uL Lymph # (Auto) 3.0 H (0.6-2.4) K/uL [place] # (Auto) 1.2 H (0.0-0.8) K/uL Eos # (Auto) 0.1 (0.0-0.7) K/uL Baso # (Auto) 0.0 (0.0-0.1) K/uL Nucleated RBC % 0.0 /100WBC Nucleated RBCs # 0 K/uL Lactate (0.20-2.00) mmol/L Sodium 139 (136-145) mmol/L Potassium 3.0 L (3.5-5.1) mmol/L Chloride 101 (98-107) mmol/L Carbon Dioxide 26.9 (21.0-32.0) mmol/L BUN 17 (7.0-18.0) mg/dL Creatinine 1.0 (0.6-1.0) mg/dL Est Cr Clr Drug Dosing 53.91 mL/min Estimated GFR (MDRD) 56.0 ml/min Glucose 112 H (74-106) mg/dL Calcium 10.4 H (8.5-10.1) mg/dL Total Bilirubin 0.4 (0.2-1.0) mg/dL AST 10 L (15-37) IU/L ALT 22 (14-63) IU/L Alkaline Phosphatase 77 (46-116) U/L Troponin I < 0.050 (0.000-0.056) ng/mL Total Protein 8.0 (6.4-8.2) g/dL Albumin 3.1 L (3.4-5.0) g/dL Globulin 4.9 H (2.6-4.0) g/dL Albumin/Globulin Ratio 0.6 L (0.9-1.6) Lipase 43 L (73-393) U/L TSH 3rd Generation 2.77 (0.36-3.74) uIU/mL Urine Color Urine Appearance Urine pH (5.0-8.0) Ur Specific [place] (1.001-1.035) Urine Protein (NEGATIVE) mg/dL Urine Glucose (UA) (NEGATIVE) mg/dL Urine Ketones (NEGATIVE) mg/dL Urine Occult Blood (NEGATIVE) Urine Nitrite (NEGATIVE) Urine Bilirubin (NEGATIVE) Urine Urobilinogen (<2.0) EU/dL Ur Leukocyte Esterase (NEGATIVE) Urine RBC (0-2/HPF) Urine WBC (0-5/HPF) Ur Epithelial Cells (NONE-FEW) Urine Bacteria (NEGATIVE) Hyaline Casts (0-2/LPF) 10/25/18 10/25/18 10/26/18 Range/Units 19:45 20:02 04:58 WBC 11.99 H (4.0-11.0) K/uL RBC 3.57 L (4.30-5.90) M/uL Hgb 10.2 L (12.0-16.0) g/dL Hct 32.7 L (36.0-46.0) % MCV 91.6 (80.0-98.0) fL MCH 28.6 (27.0-32.0) pg MCHC 31.2 (31.0-37.0) g/dL RDW Std Deviation 48.3 (28.0-62.0) fl RDW Coeff of Fernando 14 (11.0-15.0) % Plt Count 467 H (150-400) K/uL MPV 8.50 (7.40-12.00) fL Neut % (Auto) 66.4 (48.0-80.0) % Lymph % (Auto) 24.2 (16.0-40.0) % [place] % (Auto) 8.0 (0.0-15.0) % Eos % (Auto) 1.2 (0.0-7.0) % Baso % (Auto) 0.2 (0.0-1.5) % Neut # (Auto) 8.0 H (1.4-5.7) K/uL Lymph # (Auto) 2.9 H (0.6-2.4) K/uL [place] # (Auto) 1.0 H (0.0-0.8) K/uL Eos # (Auto) 0.1 (0.0-0.7) K/uL Baso # (Auto) 0.0 (0.0-0.1) K/uL Nucleated RBC % 0.0 /100WBC Nucleated RBCs # 0 K/uL Lactate 0.7 (0.20-2.00) mmol/L Sodium (136-145) mmol/L Potassium (3.5-5.1) mmol/L Chloride (98-107) mmol/L Carbon Dioxide (21.0-32.0) mmol/L BUN (7.0-18.0) mg/dL Creatinine (0.6-1.0) mg/dL Est Cr Clr Drug Dosing mL/min Estimated GFR (MDRD) ml/min Glucose (74-106) mg/dL Calcium (8.5-10.1) mg/dL Total Bilirubin (0.2-1.0) mg/dL AST (15-37) IU/L ALT (14-63) IU/L Alkaline Phosphatase (46-116) U/L Troponin I (0.000-0.056) ng/mL Total Protein (6.4-8.2) g/dL Albumin (3.4-5.0) g/dL Globulin (2.6-4.0) g/dL Albumin/Globulin Ratio (0.9-1.6) Lipase (73-393) U/L TSH 3rd Generation (0.36-3.74) uIU/mL Urine Color YELLOW Urine Appearance SLT CLOUDY Urine pH 6.5 (5.0-8.0) Ur Specific [place] 1.010 (1.001-1.035) Urine Protein NEGATIVE (NEGATIVE) mg/dL Urine Glucose (UA) NEGATIVE (NEGATIVE) mg/dL Urine Ketones NEGATIVE (NEGATIVE) mg/dL Urine Occult Blood NEGATIVE (NEGATIVE) Urine Nitrite NEGATIVE (NEGATIVE) Urine Bilirubin NEGATIVE (NEGATIVE) Urine Urobilinogen 0.2 (<2.0) EU/dL Ur Leukocyte Esterase SMALL H (NEGATIVE) Urine RBC 0-2 (0-2/HPF) Urine WBC 4-7 (0-5/HPF) Ur Epithelial Cells FEW (NONE-FEW) Urine Bacteria 1+ H (NEGATIVE) Hyaline Casts 0-1 (0-2/LPF) 10/26/18 Range/Units 04:58 WBC (4.0-11.0) K/uL RBC (4.30-5.90) M/uL Hgb (12.0-16.0) g/dL Hct (36.0-46.0) % MCV (80.0-98.0) fL MCH (27.0-32.0) pg MCHC (31.0-37.0) g/dL RDW Std Deviation (28.0-62.0) fl RDW Coeff of Fernando (11.0-15.0) % Plt Count (150-400) K/uL MPV (7.40-12.00) fL Neut % (Auto) (48.0-80.0) % Lymph % (Auto) (16.0-40.0) % [place] % (Auto) (0.0-15.0) % Eos % (Auto) (0.0-7.0) % Baso % (Auto) (0.0-1.5) % Neut # (Auto) (1.4-5.7) K/uL Lymph # (Auto) (0.6-2.4) K/uL [place] # (Auto) (0.0-0.8) K/uL Eos # (Auto) (0.0-0.7) K/uL Baso # (Auto) (0.0-0.1) K/uL Nucleated RBC % /100WBC Nucleated RBCs # K/uL Lactate (0.20-2.00) mmol/L Sodium 140 (136-145) mmol/L Potassium 2.9 L (3.5-5.1) mmol/L Chloride 106 (98-107) mmol/L Carbon Dioxide 27.6 (21.0-32.0) mmol/L BUN 15 (7.0-18.0) mg/dL Creatinine 0.9 (0.6-1.0) mg/dL Est Cr Clr Drug Dosing 62.22 mL/min Estimated GFR (MDRD) > 60.0 ml/min Glucose 104 (74-106) mg/dL Calcium 9.3 (8.5-10.1) mg/dL Total Bilirubin 0.3 (0.2-1.0) mg/dL AST 7 L (15-37) IU/L ALT 18 (14-63) IU/L Alkaline Phosphatase 67 (46-116) U/L Troponin I (0.000-0.056) ng/mL Total Protein 7.0 (6.4-8.2) g/dL Albumin 2.6 L (3.4-5.0) g/dL Globulin 4.4 H (2.6-4.0) g/dL Albumin/Globulin Ratio 0.6 L (0.9-1.6) Lipase (73-393) U/L TSH 3rd Generation (0.36-3.74) uIU/mL Urine Color Urine Appearance Urine pH (5.0-8.0) Ur Specific [place] (1.001-1.035) Urine Protein (NEGATIVE) mg/dL Urine Glucose (UA) (NEGATIVE) mg/dL Urine Ketones (NEGATIVE) mg/dL Urine Occult Blood (NEGATIVE) Urine Nitrite (NEGATIVE) Urine Bilirubin (NEGATIVE) Urine Urobilinogen (<2.0) EU/dL Ur Leukocyte Esterase (NEGATIVE) Urine RBC (0-2/HPF) Urine WBC (0-5/HPF) Ur Epithelial Cells (NONE-FEW) Urine Bacteria (NEGATIVE) Hyaline Casts (0-2/LPF) Result Diagrams: 10/26/18 04:58 10/26/18 04:58 - Problem List (1) Pericolonic abscess due to diverticulitis SNOMED Code(s): 203776780 ICD Code: K57.20 - DVTRCLI OF LG INT W PERFORATION AND ABSCESS W/O BLEEDING Status: Acute Priority: High Current Visit: Yes (2) Diverticulitis SNOMED Code(s): 784053830 ICD Code: K57.92 - DVTRCLI OF INTEST, PART UNSP, W/O PERF OR ABSCESS W/O BLEED Status: Acute Priority: High Current Visit: Yes (3) Syncope SNOMED Code(s): 555703752 ICD Code: R55 - SYNCOPE AND COLLAPSE Status: Acute Priority: High Current Visit: Yes Qualifiers: Syncope type: unspecified Qualified Code(s): R55 - Syncope and collapse (4) Anemia SNOMED Code(s): 473350782 ICD Code: D64.9 - ANEMIA, UNSPECIFIED Status: Chronic Priority: Medium Current Visit: Yes Qualifiers: Anemia type: unspecified type Qualified Code(s): D64.9 - Anemia, unspecified (5) Hypokalemia SNOMED Code(s): 13541942 ICD Code: E87.6 - HYPOKALEMIA Status: Acute Priority: High Current Visit: Yes Problem List Initiated/Reviewed/Updated: Yes Orders Last 24hrs: Active Orders 24 hr Category Date Time Status Admission Status [Patient Status] [ADT] Stat ADT 10/25/18 20:17 Active EKG Documentation Completion [RC] STAT Care 10/25/18 17:25 Active Orthostatic Vital Signs [RC] ASDIRECTED Care 10/25/18 17:30 Active Oxygen Therapy [RC] PRN Care 10/26/18 07:00 Ordered Telemetry Monitoring [Cardiac Monitoring] [RC] . Care 10/25/18 21:52 Active DIRECTED Up ad Jill [RC] ASDIRECTED Care 10/26/18 07:00 Ordered VTE/DVT Education [RC] PER UNIT ROUTINE Care 10/26/18 07:00 Ordered Vital Signs [RC] Q4H Care 10/26/18 07:00 Ordered NPO [Nothing Per Oral Diet] [DIET] Diet 10/26/18 Breakfast Active CULTURE BLOOD [BC] Stat Lab 10/25/18 20:15 Received CULTURE BLOOD [BC] Stat Lab 10/25/18 20:26 Received CULTURE URINE [RM] Stat Lab 10/25/18 19:45 Received Acetaminophen [Tylenol] Med 10/25/18 21:04 Active 650 mg PO Q6H PRN DULoxetine [Cymbalta] Med 10/26/18 09:00 Ordered 60 mg PO DAILY Enoxaparin [Lovenox] Med 10/26/18 07:00 Ordered 30 mg SUBCUT Q24H Estrogens, Conjugated [Premarin] Med 10/26/18 09:00 Ordered 0.625 mg PO DAILY Levofloxacin/Dextrose 5%-Water [Levaquin in D5W 500 MG/ Med 10/25/18 21:15 Active 100 ML] 500 mg Premix Bag 1 bag IV Q24H Levothyroxine [Synthroid] Med 10/26/18 09:00 Ordered 88 mcg PO DAILY Morphine Med 10/25/18 21:05 Active 2 mg IVPUSH Q4H PRN Ondansetron [Zofran] Med 10/25/18 21:05 Active 4 mg IVPUSH Q4H PRN Pantoprazole [ProTONIX] Med 10/26/18 09:00 Ordered 40 mg PO DAILY Sodium Chloride 0.9% [Normal Saline] 1,000 ml Med 10/25/18 21:15 Active IV ASDIRECTED Sodium Chloride 0.9% [Normal Saline] 1,000 ml Med 10/25/18 20:30 Active IV STAT Telmisartan [Micardis] Med 10/26/18 09:00 Ordered 80 mg PO DAILY Triamterene/Hydrochlorothiazid Med 10/26/18 09:00 Ordered 1 each PO DAILY metroNIDAZOLE/Normal Saline [Flagyl 500 MG in NS 100 ML Med 10/26/18 00:00 Active ] 500 mg Premix Bag 1 bag IV QID oxyCODONE Med 10/25/18 21:04 Active 5 mg PO Q4H PRN Blood Culture x2 Reflex Set [OM.PC] Stat Oth 10/25/18 20:02 Ordered Resuscitation Status Routine Resus Stat 10/26/18 07:00 Ordered Medication Orders Acetaminophen (Tylenol) 650 mg PO Q6H PRN PRN Reason: Pain (mild 1-3) Duloxetine HCl (Cymbalta) 60 mg PO DAILY [facility] Enoxaparin Sodium (Lovenox) 30 mg SUBCUT Q24H [facility] Estrogens Conjugated (Premarin) 0.625 mg PO DAILY [facility] Sodium Chloride (Normal Saline) 1,000 mls @ 125 mls/hr IV STAT [facility] Last Admin: 10/26/18 04:39 Dose: 125 mls/hr Infusion: 10/26/18 04:39 Dose: 125 mls/hr Admin: 10/25/18 21:43 Dose: 125 mls/hr Infusion: 10/25/18 21:43 Dose: 125 mls/hr Admin: 10/25/18 20:31 Dose: 125 mls/hr Levofloxacin/Dextrose 500 mg/ (Premix) 100 mls @ 100 mls/hr IV Q24H [facility] Last Admin: 10/25/18 21:35 Dose: 100 mls/hr Metronidazole 500 mg/ Premix 100 mls @ 100 mls/hr IV QID [facility] Last Admin: 10/26/18 06:26 Dose: 100 mls/hr Infusion: 10/26/18 01:38 Dose: 100 mls/hr Admin: 10/26/18 00:38 Dose: 100 mls/hr Sodium Chloride (Normal Saline) 1,000 mls @ 125 mls/hr IV ASDIRECTED [facility] Levothyroxine Sodium (Synthroid) 88 mcg PO DAILY [facility] Morphine Sulfate (Morphine) 2 mg IVPUSH Q4H PRN PRN Reason: Pain (severe 7-10) Non-Formulary Medication (Telmisartan [Micardis]) 80 mg PO DAILY [facility] Non-Formulary Medication (Triamterene/Hydrochlorothiazid) 1 each PO DAILY [facility] Ondansetron HCl (Zofran) 4 mg IVPUSH Q4H PRN PRN Reason: Nausea/Vomiting Last Admin: 10/25/18 21:36 Dose: 4 mg Oxycodone HCl (Oxycodone) 5 mg PO Q4H PRN PRN Reason: Pain (moderate 4-6) Last Admin: 10/26/18 01:48 Dose: 5 mg Admin: 10/25/18 21:36 Dose: 5 mg Pantoprazole Sodium (Protonix) 40 mg PO DAILY [facility] Assessment/Plan Comment:: The patient is a 63-year-old lady who had been admitted secondary to acute diverticulitis and phlegmon formation in the pericolic area. The patient also has been evaluated by surgery with regards to this. The patient will be kept nothing by mouth. The patient will be kept on IV antibiotics as well as normal saline at 125 mL per hour. The patient also will continue to have pain control with the use of narcotics. The patient is also concerning for her syncopal episodes which had been going on for approximately one month prior to presentation for diverticulitis. I have ordered a 2-D echocardiogram to assess the structure and function of her heart and a carotid ultrasound for blood flow. The patient's electrolytes will be aggressively replaced. Patient will be monitored with her vital signs and her medication for hypertension has been restarted and will be adjusted as necessary. Discussion with the surgeon had indicated that possible surgery for this patient would be more appropriate at tertiary care center. We'll consider transportation to tertiary care center tomorrow after workup for syncopal episodes.
[2018-10-26] MEDS ORDERED: Levothyroxine 88 MCG Tab PO SCH (07:30)
[2018-10-26 08:02] VITALS: PULSE 71
[2018-10-26] MEDS ORDERED: Dextrose 5%-0.225% NaCl w/KCl 1,000 ML IV SCH (08:45)
[2018-10-26] MEDS ORDERED: Pantoprazole 40 MG Tab.CR PO SCH (09:00)
[2018-10-26] MEDS ORDERED: DULoxetine 60 MG Cap PO SCH (09:00)
[2018-10-26] MEDS ORDERED: Hydrochlorothiazide/Triamterene 25-37.5 Tab PO SCH (09:00)
--- NOTE | 2018-10-26 10:51 | PCM.CONSN ---
- General Info Date of Service: 10/26/18 Admission Dx/Problem (Free Text): Admission Diagnosis/Problem Admission Diagnosis/Problem Diverticulitis with 3X4 cm pelvic abscess Functional Status: Reports: Pain Controlled, Ambulating. Denies: New Symptoms - Review of Systems General: Reports: Weakness. Denies: Fever, Fatigue, Malaise, Chills, Appetite HEENT: Reports: No Symptoms Pulmonary: Denies: Shortness of Breath, Pleuritic Chest Pain, Cough Cardiovascular: Denies: Chest Pain Gastrointestinal: Reports: Abdominal Pain, Constipation, Decreased Appetite. Denies: Diarrhea, Flatus, Hematochezia, Melena, Nausea, Vomiting Genitourinary: Denies: Dysuria, Frequency, Burning, Pain Musculoskeletal: Reports: No Symptoms Skin: Denies: Cyanosis, Jaundice Neurological: Reports: No Symptoms Psychiatric: Reports: No Symptoms - Patient Data Vitals - Most Recent: Last Vital Signs Temp 98.3 F 10/26/18 08:00 Pulse 71 10/26/18 08:00 Resp 16 10/26/18 08:00 BP 106/55 L 10/26/18 10:41 Pulse Ox 94 L 10/26/18 08:00 Orthostatic Blood Pressure [ 84/54 Standing] Orthostatic Blood Pressure [ 101/63 Sitting] Orthostatic Blood Pressure [ 92/49 Supine] Weight - Most Recent: 211 lb 10.3 oz I&O - Last 24 Hours: Intake & Output 10/25/18 10/26/18 10/26/18 19:59 03:59 11:59 Intake Total 1240 Output Total 300 Balance 940 Lab Results Last 24 Hours: Laboratory Results - last 24 hr 10/25/18 10/25/18 10/25/18 Range/Units 17:20 17:20 17:20 WBC 14.52 H (4.0-11.0) K/uL RBC 3.97 L (4.30-5.90) M/uL Hgb 11.3 L (12.0-16.0) g/dL Hct 35.7 L (36.0-46.0) % MCV 89.9 (80.0-98.0) fL MCH 28.5 (27.0-32.0) pg MCHC 31.7 (31.0-37.0) g/dL RDW Std Deviation 46.8 (28.0-62.0) fl RDW Coeff of Fernando 14 (11.0-15.0) % Plt Count 507 H (150-400) K/uL MPV 8.50 (7.40-12.00) fL Neut % (Auto) 70.5 (48.0-80.0) % Lymph % (Auto) 20.5 (16.0-40.0) % Gaston % (Auto) 8.1 (0.0-15.0) % Eos % (Auto) 0.8 (0.0-7.0) % Baso % (Auto) 0.1 (0.0-1.5) % Neut # (Auto) 10.2 H (1.4-5.7) K/uL Lymph # (Auto) 3.0 H (0.6-2.4) K/uL Gaston # (Auto) 1.2 H (0.0-0.8) K/uL Eos # (Auto) 0.1 (0.0-0.7) K/uL Baso # (Auto) 0.0 (0.0-0.1) K/uL Nucleated RBC % 0.0 /100WBC Nucleated RBCs # 0 K/uL Lactate (0.20-2.00) mmol/L Sodium 139 (136-145) mmol/L Potassium 3.0 L (3.5-5.1) mmol/L Chloride 101 (98-107) mmol/L Carbon Dioxide 26.9 (21.0-32.0) mmol/L BUN 17 (7.0-18.0) mg/dL Creatinine 1.0 (0.6-1.0) mg/dL Est Cr Clr Drug Dosing 53.91 mL/min Estimated GFR (MDRD) 56.0 ml/min Glucose 112 H (74-106) mg/dL Calcium 10.4 H (8.5-10.1) mg/dL Magnesium (1.8-2.4) mg/dL Total Bilirubin 0.4 (0.2-1.0) mg/dL AST 10 L (15-37) IU/L ALT 22 (14-63) IU/L Alkaline Phosphatase 77 (46-116) U/L Troponin I < 0.050 (0.000-0.056) ng/mL Total Protein 8.0 (6.4-8.2) g/dL Albumin 3.1 L (3.4-5.0) g/dL Globulin 4.9 H (2.6-4.0) g/dL Albumin/Globulin Ratio 0.6 L (0.9-1.6) Lipase 43 L (73-393) U/L TSH 3rd Generation 2.77 (0.36-3.74) uIU/mL Urine Color Urine Appearance Urine pH (5.0-8.0) Ur Specific Al[place]ir (1.001-1.035) Urine Protein (NEGATIVE) mg/dL Urine Glucose (UA) (NEGATIVE) mg/dL Urine Ketones (NEGATIVE) mg/dL Urine Occult Blood (NEGATIVE) Urine Nitrite (NEGATIVE) Urine Bilirubin (NEGATIVE) Urine Urobilinogen (<2.0) EU/dL Ur Leukocyte Esterase (NEGATIVE) Urine RBC (0-2/HPF) Urine WBC (0-5/HPF) Ur Epithelial Cells (NONE-FEW) Urine Bacteria (NEGATIVE) Hyaline Casts (0-2/LPF) 10/25/18 10/25/18 10/26/18 Range/Units 19:45 20:02 04:58 WBC 11.99 H (4.0-11.0) K/uL RBC 3.57 L (4.30-5.90) M/uL Hgb 10.2 L (12.0-16.0) g/dL Hct 32.7 L (36.0-46.0) % MCV 91.6 (80.0-98.0) fL MCH 28.6 (27.0-32.0) pg MCHC 31.2 (31.0-37.0) g/dL RDW Std Deviation 48.3 (28.0-62.0) fl RDW Coeff of Fernando 14 (11.0-15.0) % Plt Count 467 H (150-400) K/uL MPV 8.50 (7.40-12.00) fL Neut % (Auto) 66.4 (48.0-80.0) % Lymph % (Auto) 24.2 (16.0-40.0) % Gaston % (Auto) 8.0 (0.0-15.0) % Eos % (Auto) 1.2 (0.0-7.0) % Baso % (Auto) 0.2 (0.0-1.5) % Neut # (Auto) 8.0 H (1.4-5.7) K/uL Lymph # (Auto) 2.9 H (0.6-2.4) K/uL Gaston # (Auto) 1.0 H (0.0-0.8) K/uL Eos # (Auto) 0.1 (0.0-0.7) K/uL Baso # (Auto) 0.0 (0.0-0.1) K/uL Nucleated RBC % 0.0 /100WBC Nucleated RBCs # 0 K/uL Lactate 0.7 (0.20-2.00) mmol/L Sodium (136-145) mmol/L Potassium (3.5-5.1) mmol/L Chloride (98-107) mmol/L Carbon Dioxide (21.0-32.0) mmol/L BUN (7.0-18.0) mg/dL Creatinine (0.6-1.0) mg/dL Est Cr Clr Drug Dosing mL/min Estimated GFR (MDRD) ml/min Glucose (74-106) mg/dL Calcium (8.5-10.1) mg/dL Magnesium (1.8-2.4) mg/dL Total Bilirubin (0.2-1.0) mg/dL AST (15-37) IU/L ALT (14-63) IU/L Alkaline Phosphatase (46-116) U/L Troponin I (0.000-0.056) ng/mL Total Protein (6.4-8.2) g/dL Albumin (3.4-5.0) g/dL Globulin (2.6-4.0) g/dL Albumin/Globulin Ratio (0.9-1.6) Lipase (73-393) U/L TSH 3rd Generation (0.36-3.74) uIU/mL Urine Color YELLOW Urine Appearance SLT CLOUDY Urine pH 6.5 (5.0-8.0) Ur Specific [place] 1.010 (1.001-1.035) Urine Protein NEGATIVE (NEGATIVE) mg/dL Urine Glucose (UA) NEGATIVE (NEGATIVE) mg/dL Urine Ketones NEGATIVE (NEGATIVE) mg/dL Urine Occult Blood NEGATIVE (NEGATIVE) Urine Nitrite NEGATIVE (NEGATIVE) Urine Bilirubin NEGATIVE (NEGATIVE) Urine Urobilinogen 0.2 (<2.0) EU/dL Ur Leukocyte Esterase SMALL H (NEGATIVE) Urine RBC 0-2 (0-2/HPF) Urine WBC 4-7 (0-5/HPF) Ur Epithelial Cells FEW (NONE-FEW) Urine Bacteria 1+ H (NEGATIVE) Hyaline Casts 0-1 (0-2/LPF) 10/26/18 10/26/18 Range/Units 04:58 04:58 WBC (4.0-11.0) K/uL RBC (4.30-5.90) M/uL Hgb (12.0-16.0) g/dL Hct (36.0-46.0) % MCV (80.0-98.0) fL MCH (27.0-32.0) pg MCHC (31.0-37.0) g/dL RDW Std Deviation (28.0-62.0) fl RDW Coeff of Fernando (11.0-15.0) % Plt Count (150-400) K/uL MPV (7.40-12.00) fL Neut % (Auto) (48.0-80.0) % Lymph % (Auto) (16.0-40.0) % Gaston % (Auto) (0.0-15.0) % Eos % (Auto) (0.0-7.0) % Baso % (Auto) (0.0-1.5) % Neut # (Auto) (1.4-5.7) K/uL Lymph # (Auto) (0.6-2.4) K/uL Gaston # (Auto) (0.0-0.8) K/uL Eos # (Auto) (0.0-0.7) K/uL Baso # (Auto) (0.0-0.1) K/uL Nucleated RBC % /100WBC Nucleated RBCs # K/uL Lactate (0.20-2.00) mmol/L Sodium 140 (136-145) mmol/L Potassium 2.9 L (3.5-5.1) mmol/L Chloride 106 (98-107) mmol/L Carbon Dioxide 27.6 (21.0-32.0) mmol/L BUN 15 (7.0-18.0) mg/dL Creatinine 0.9 (0.6-1.0) mg/dL Est Cr Clr Drug Dosing 62.22 mL/min Estimated GFR (MDRD) > 60.0 ml/min Glucose 104 (74-106) mg/dL Calcium 9.3 (8.5-10.1) mg/dL Magnesium 1.9 (1.8-2.4) mg/dL Total Bilirubin 0.3 (0.2-1.0) mg/dL AST 7 L (15-37) IU/L ALT 18 (14-63) IU/L Alkaline Phosphatase 67 (46-116) U/L Troponin I (0.000-0.056) ng/mL Total Protein 7.0 (6.4-8.2) g/dL Albumin 2.6 L (3.4-5.0) g/dL Globulin 4.4 H (2.6-4.0) g/dL Albumin/Globulin Ratio 0.6 L (0.9-1.6) Lipase (73-393) U/L TSH 3rd Generation (0.36-3.74) uIU/mL Urine Color Urine Appearance Urine pH (5.0-8.0) Ur Specific [place] (1.001-1.035) Urine Protein (NEGATIVE) mg/dL Urine Glucose (UA) (NEGATIVE) mg/dL Urine Ketones (NEGATIVE) mg/dL Urine Occult Blood (NEGATIVE) Urine Nitrite (NEGATIVE) Urine Bilirubin (NEGATIVE) Urine Urobilinogen (<2.0) EU/dL Ur Leukocyte Esterase (NEGATIVE) Urine RBC (0-2/HPF) Urine WBC (0-5/HPF) Ur Epithelial Cells (NONE-FEW) Urine Bacteria (NEGATIVE) Hyaline Casts (0-2/LPF) Med Orders - Current: Current Medications Acetaminophen (Tylenol) 650 mg PO Q6H PRN PRN Reason: Pain (mild 1-3) Duloxetine HCl (Cymbalta) 60 mg PO DAILY [facility] Last Admin: 10/26/18 08:57 Dose: 60 mg Enoxaparin Sodium (Lovenox) 40 mg SUBCUT Q24H [facility] Last Admin: 10/26/18 08:58 Dose: 40 mg Estrogens Conjugated (Premarin) 0.625 mg PO DAILY [facility] Last Admin: 10/26/18 09:02 Dose: Not Given Sodium Chloride (Normal Saline) 1,000 mls @ 125 mls/hr IV STAT [facility] Last Admin: 10/26/18 04:39 Dose: 125 mls/hr Levofloxacin/Dextrose 500 mg/ (Premix) 100 mls @ 100 mls/hr IV Q24H [facility] Last Admin: 10/25/18 21:35 Dose: 100 mls/hr Metronidazole 500 mg/ Premix 100 mls @ 100 mls/hr IV QID [facility] Last Admin: 10/26/18 06:26 Dose: 100 mls/hr Sodium Chloride (Normal Saline) 1,000 mls @ 125 mls/hr IV ASDIRECTED [facility] Potassium Chloride/Dextrose/Sod Cl (D5 1/4 Ns With 20 Meq Kcl) 1,000 mls @ 100 mls/hr IV ASDIRECTED [facility] Levothyroxine Sodium (Synthroid) 88 mcg PO ACBREAKFAST [facility] Last Admin: 10/26/18 08:56 Dose: 88 mcg Morphine Sulfate (Morphine) 2 mg IVPUSH Q4H PRN PRN Reason: Pain (severe 7-10) Ondansetron HCl (Zofran) 4 mg IVPUSH Q4H PRN PRN Reason: Nausea/Vomiting Last Admin: 10/25/18 21:36 Dose: 4 mg Oxycodone HCl (Oxycodone) 5 mg PO Q4H PRN PRN Reason: Pain (moderate 4-6) Last Admin: 10/26/18 09:20 Dose: 5 mg Pantoprazole Sodium (Protonix) 40 mg PO DAILY [facility] Last Admin: 10/26/18 08:57 Dose: 40 mg Telmisartan (Micardis) 80 mg PO DAILY [facility] Last Admin: 10/26/18 10:41 Dose: Not Given Triamterene/HCTZ (Maxzide 25-37.5 Mg) 1 each PO DAILY [facility] Last Admin: 10/26/18 10:41 Dose: Not Given Discontinued Medications Sodium Chloride (Normal Saline) 1,000 mls @ 999 mls/hr IV BOLUS ONE Stop: 10/25/18 18:25 Last Admin: 10/25/18 17:32 Dose: 999 mls/hr Cefoxitin Sodium 2 gm/ Sodium (Chloride) 100 mls @ 200 mls/hr IV ONETIME ONE Stop: 10/25/18 20:44 Last Admin: 10/25/18 20:31 Dose: Not Given Cefoxitin Sodium 2 gm/ Premix 50 mls @ 100 mls/hr IV ONETIME ONE Stop: 10/25/18 20:59 Last Admin: 10/25/18 20:32 Dose: 100 mls/hr Iopamidol (Isovue Multipack-370 (76%)) 80 ml IVPUSH ONETIME STA Stop: 10/25/18 18:43 Last Admin: 10/25/18 18:42 Dose: 80 ml Ondansetron HCl (Zofran) 4 mg IVPUSH ONETIME ONE Stop: 10/25/18 17:31 Last Admin: 10/25/18 17:34 Dose: 4 mg - Exam Quality Assessment: No: Central Line/PICC, Urine Catheter General: Alert, Oriented, Cooperative, Mild Distress HEENT: Pupils Equal, Pupils Reactive. No: Scleral Icterus Neck: Supple, +2 Carotid Pulse wo Bruit Lungs: Clear to Auscultation, Normal Respiratory Effort Cardiovascular: Regular Rate, Regular Rhythm, No Murmurs GI/Abdominal Exam: Normal Bowel Sounds, Soft, No Distention, Rebound, Tender. No: Guarding, Rigid, Hernia (Female) Exam: Deferred Back Exam: Normal Inspection, Full Range of Motion Extremities: Normal Inspection, Normal Range of Motion Peripheral Pulses: 4+: Posterior Tibial (L), Posterior Tibial (R), Dorsalis Pedis (L), Dorsalis Pedis (R) Skin: Warm, Dry, Intact Neurological: No New Focal Deficit Psy/Mental Status: Alert, Normal Affect, Normal Mood Consult PN Assessment/Plan Procedures: Procedures COLONOSCOPY AND BIOPSY (12/23/13) COMPREHEN METABOLIC PANEL (11/09/17) CRYPTOSPORIDIUM AG IA (09/02/13) CT ABD & PELV 1/> REGNS (08/12/17) EMERGENCY DEPT VISIT (10/08/15) GIARDIA AG IA (09/02/13) MRI BRAIN STEM W/O & W/DYE (09/07/15) MRI BRAIN STEM W/O DYE (12/24/17) MRI LUMBAR SPINE W/O & W/DYE (12/24/17) MRI LWR EXTREMITY W/O&W/DYE (12/24/17) MRI NECK SPINE W/O DYE (09/07/15) ROUTINE VENIPUNCTURE (11/09/17) STOOL CULTR AEROBIC BACT EA (09/02/13) TISSUE EXAM BY PATHOLOGIST (12/23/13) X-RAY EXAM L-S SPINE 2/3 VWS (07/06/15) X-RAY EXAM OF ANKLE (10/08/15) X-RAY EXAM OF FOOT (12/20/15) X-RAY EXAM OF SHOULDER (10/10/15) (1) Pelvic fluid collection SNOMED Code(s): 478533817, 070213406 Code(s): R18.8 - OTHER ASCITES Priority: Medium Current Visit: Yes (2) Pericolonic abscess due to diverticulitis SNOMED Code(s): 248891737 Code(s): K57.20 - DVTRCLI OF LG INT W PERFORATION AND ABSCESS W/O BLEEDING Priority: High Current Visit: Yes (3) Anemia SNOMED Code(s): 521761220 Code(s): D64.9 - ANEMIA, UNSPECIFIED Priority: Medium Current Visit: Yes Qualifiers: Anemia type: unspecified type Qualified Code(s): D64.9 - Anemia, unspecified (4) Dehydration SNOMED Code(s): 65917217 Code(s): E86.0 - DEHYDRATION Priority: Medium Current Visit: Yes (5) Diverticulitis SNOMED Code(s): 658333603 Code(s): K57.92 - DVTRCLI OF INTEST, PART UNSP, W/O PERF OR ABSCESS W/O BLEED Priority: High Current Visit: Yes (6) Leukocytosis SNOMED Code(s): 451807539, 661276428 Code(s): D72.829 - ELEVATED WHITE BLOOD CELL COUNT, UNSPECIFIED Priority: High Current Visit: Yes Qualifiers: Leukocytosis type: unspecified Qualified Code(s): D72.829 - Elevated white blood cell count, unspecified (7) Syncope SNOMED Code(s): 315891618 Code(s): R55 - SYNCOPE AND COLLAPSE Priority: High Current Visit: Yes Qualifiers: Syncope type: unspecified Qualified Code(s): R55 - Syncope and collapse Problem List Initiated/Reviewed/Updated: Yes Plan: Patient remains hemodynamically stable. Again, I think she would benefit from an IR approach for abscess drainage or possibly a laparoscopic approach with either a laparoscopic washout or possible laparoscopic resection w/wo diverting stoma formation. I did speak to the patient about the possibility of transfer to [place] to see either Dr. Catrer or Dr. Tan at [facility].
--- NOTE | 2018-10-26 13:11 | PCM.DCSUM1 ---
Discharge Summary - Hospital Course HPI Initial Comments: Admitted for frequent syncope and diverticulitis with abscess Diagnosis: Stroke: No - Discharge Data Discharge Date: 10/26/18 Discharge Disposition: DC/Tfer to Acute Hospital 02 Condition: Fair - Discharge Diagnosis/Problem(s) (1) Pericolonic abscess due to diverticulitis SNOMED Code(s): 834634209 ICD Code: K57.20 - DVTRCLI OF LG INT W PERFORATION AND ABSCESS W/O BLEEDING Status: Acute Priority: High Current Visit: Yes (2) Diverticulitis SNOMED Code(s): 604851340 ICD Code: K57.92 - DVTRCLI OF INTEST, PART UNSP, W/O PERF OR ABSCESS W/O BLEED Status: Acute Priority: High Current Visit: Yes (3) Syncope SNOMED Code(s): 028330181 ICD Code: R55 - SYNCOPE AND COLLAPSE Status: Acute Priority: High Current Visit: Yes Problem Details: Concern for cardiogenic syncope Qualifiers: Syncope type: unspecified Qualified Code(s): R55 - Syncope and collapse (4) Anemia SNOMED Code(s): 546175130 ICD Code: D64.9 - ANEMIA, UNSPECIFIED Status: Chronic Priority: Medium Current Visit: Yes Qualifiers: Anemia type: unspecified type Qualified Code(s): D64.9 - Anemia, unspecified (5) Hypokalemia SNOMED Code(s): 47908858 ICD Code: E87.6 - HYPOKALEMIA Status: Acute Priority: High Current Visit: Yes - Patient Summary/Data Hospital Course: The patient is a 63-year-old lady who had presented to the emergency department with a complaint of abdominal pain with nausea and vomiting. The patient reports that she has had the pain for approximately 3 days. Patient says that the pain is located in the lower part of her abdomen and she has described as sharp and stabbing and it does not radiate. The patient can pinpoint pain on examination. Also, the patient reports that for the past month she has been having episodes of syncope that had resulted in injury. The patient says that these episodes are occurring sometimes to 3 times a day. She has described the sensation as getting flushed, weak and wobbly and then passing out. Also the patient has had dizziness when getting up quickly. The patient also reports that she will wake up pretty quickly after a few seconds. The patient has not started on any new medication. The patient has been taking medication for her blood pressure as well as menopausal symptoms. The patient will be kept on IV antibiotics as well as normal saline at 125 mL per hour. The patient also will continue to have pain control with the use of narcotics. The patient is also concerning for her syncopal episodes which had been going on for approximately one month prior to presentation for diverticulitis. I have ordered a 2-D echocardiogram to assess the structure and function of her heart and a carotid ultrasound for blood flow. The patient's electrolytes will be aggressively replaced. Patient will be monitored with her vital signs and her medication for hypertension has been restarted and will be adjusted as necessary. Discussion with the surgeon had indicated that possible surgery for this patient would be more appropriate at [facility]. The patient will be discharged by ground ambulance to for further evaluation and treatment. I have discussed the case with Dr. Tan and he is accepting of this patient as a direct admit. Also I expressed my concerns with regards to the workup for this patient for possible cardiogenic syncope. The patient is hemodynamically stable presently. The patient then will be discharged to [facility] by ground transportation. - Patient Instructions Diet: NPO - Discharge Plan *PRESCRIPTION DRUG MONITORING PROGRAM REVIEWED*: No *COPY OF PRESCRIPTION DRUG MONITORING REPORT IN PATIENT YEHUDA: No Home Medications: Home Meds DULoxetine [Cymbalta] 60 mg PO DAILY 12/22/13 [History] Estrogens, Conjugated [Premarin] 0.625 mg PO DAILY 12/22/13 [History] Levothyroxine Sodium 88 mcg PO DAILY 12/22/13 [History] Telmisartan [Micardis] 80 mg PO DAILY 12/22/13 [History] Cyanocobalamin (Vitamin B-12) [B-12 Compliance] 1,000 mcg IJ ASDIRECTED [History] Pantoprazole [ProTONIX] 40 mg PO DAILY 10/25/18 [History] Triamterene/Hydrochlorothiazid [Triamterene-HCTZ 37.5-25 MG] 1 each PO DAILY [History] Oxygen Therapy Mode: Room Air Forms: ED Department Discharge Referrals: Arun Ac [Primary Care Provider] - - Discharge Summary/Plan Comment DC Time >30 min.: Yes - Patient Data Vitals - Most Recent: Last Vital Signs Temp 36.8 C 10/26/18 08:00 Pulse 71 10/26/18 08:00 Resp 16 10/26/18 08:00 BP 106/55 L 10/26/18 10:41 Pulse Ox 94 L 10/26/18 08:00 Orthostatic Blood Pressure [ 84/54 Standing] Orthostatic Blood Pressure [ 101/63 Sitting] Orthostatic Blood Pressure [ 92/49 Supine] Weight - Most Recent: 96 kg I&O - Last 24 hours: Intake & Output 10/25/18 10/26/18 10/26/18 22:59 06:59 14:59 Intake Total 1240 Output Total 300 Balance 940 Lab Results - Last 24 hrs: Laboratory Results - last 24 hr 10/25/18 10/25/18 10/25/18 Range/Units 17:20 17:20 17:20 WBC 14.52 H (4.0-11.0) K/uL RBC 3.97 L (4.30-5.90) M/uL Hgb 11.3 L (12.0-16.0) g/dL Hct 35.7 L (36.0-46.0) % MCV 89.9 (80.0-98.0) fL MCH 28.5 (27.0-32.0) pg MCHC 31.7 (31.0-37.0) g/dL RDW Std Deviation 46.8 (28.0-62.0) fl RDW Coeff of Fernando 14 (11.0-15.0) % Plt Count 507 H (150-400) K/uL MPV 8.50 (7.40-12.00) fL Neut % (Auto) 70.5 (48.0-80.0) % Lymph % (Auto) 20.5 (16.0-40.0) % Major % (Auto) 8.1 (0.0-15.0) % Eos % (Auto) 0.8 (0.0-7.0) % Baso % (Auto) 0.1 (0.0-1.5) % Neut # (Auto) 10.2 H (1.4-5.7) K/uL Lymph # (Auto) 3.0 H (0.6-2.4) K/uL Major # (Auto) 1.2 H (0.0-0.8) K/uL Eos # (Auto) 0.1 (0.0-0.7) K/uL Baso # (Auto) 0.0 (0.0-0.1) K/uL Nucleated RBC % 0.0 /100WBC Nucleated RBCs # 0 K/uL Lactate (0.20-2.00) mmol/L Sodium 139 (136-145) mmol/L Potassium 3.0 L (3.5-5.1) mmol/L Chloride 101 (98-107) mmol/L Carbon Dioxide 26.9 (21.0-32.0) mmol/L BUN 17 (7.0-18.0) mg/dL Creatinine 1.0 (0.6-1.0) mg/dL Est Cr Clr Drug Dosing 53.91 mL/min Estimated GFR (MDRD) 56.0 ml/min Glucose 112 H (74-106) mg/dL Calcium 10.4 H (8.5-10.1) mg/dL Magnesium (1.8-2.4) mg/dL Total Bilirubin 0.4 (0.2-1.0) mg/dL AST 10 L (15-37) IU/L ALT 22 (14-63) IU/L Alkaline Phosphatase 77 (46-116) U/L Troponin I < 0.050 (0.000-0.056) ng/mL Total Protein 8.0 (6.4-8.2) g/dL Albumin 3.1 L (3.4-5.0) g/dL Globulin 4.9 H (2.6-4.0) g/dL Albumin/Globulin Ratio 0.6 L (0.9-1.6) Lipase 43 L (73-393) U/L TSH 3rd Generation 2.77 (0.36-3.74) uIU/mL Urine Color Urine Appearance Urine pH (5.0-8.0) Ur Specific Granger (1.001-1.035) Urine Protein (NEGATIVE) mg/dL Urine Glucose (UA) (NEGATIVE) mg/dL Urine Ketones (NEGATIVE) mg/dL Urine Occult Blood (NEGATIVE) Urine Nitrite (NEGATIVE) Urine Bilirubin (NEGATIVE) Urine Urobilinogen (<2.0) EU/dL Ur Leukocyte Esterase (NEGATIVE) Urine RBC (0-2/HPF) Urine WBC (0-5/HPF) Ur Epithelial Cells (NONE-FEW) Urine Bacteria (NEGATIVE) Hyaline Casts (0-2/LPF) 10/25/18 10/25/18 10/26/18 Range/Units 19:45 20:02 04:58 WBC 11.99 H (4.0-11.0) K/uL RBC 3.57 L (4.30-5.90) M/uL Hgb 10.2 L (12.0-16.0) g/dL Hct 32.7 L (36.0-46.0) % MCV 91.6 (80.0-98.0) fL MCH 28.6 (27.0-32.0) pg MCHC 31.2 (31.0-37.0) g/dL RDW Std Deviation 48.3 (28.0-62.0) fl RDW Coeff of Fernando 14 (11.0-15.0) % Plt Count 467 H (150-400) K/uL MPV 8.50 (7.40-12.00) fL Neut % (Auto) 66.4 (48.0-80.0) % Lymph % (Auto) 24.2 (16.0-40.0) % Major % (Auto) 8.0 (0.0-15.0) % Eos % (Auto) 1.2 (0.0-7.0) % Baso % (Auto) 0.2 (0.0-1.5) % Neut # (Auto) 8.0 H (1.4-5.7) K/uL Lymph # (Auto) 2.9 H (0.6-2.4) K/uL Major # (Auto) 1.0 H (0.0-0.8) K/uL Eos # (Auto) 0.1 (0.0-0.7) K/uL Baso # (Auto) 0.0 (0.0-0.1) K/uL Nucleated RBC % 0.0 /100WBC Nucleated RBCs # 0 K/uL Lactate 0.7 (0.20-2.00) mmol/L Sodium (136-145) mmol/L Potassium (3.5-5.1) mmol/L Chloride (98-107) mmol/L Carbon Dioxide (21.0-32.0) mmol/L BUN (7.0-18.0) mg/dL Creatinine (0.6-1.0) mg/dL Est Cr Clr Drug Dosing mL/min Estimated GFR (MDRD) ml/min Glucose (74-106) mg/dL Calcium (8.5-10.1) mg/dL Magnesium (1.8-2.4) mg/dL Total Bilirubin (0.2-1.0) mg/dL AST (15-37) IU/L ALT (14-63) IU/L Alkaline Phosphatase (46-116) U/L Troponin I (0.000-0.056) ng/mL Total Protein (6.4-8.2) g/dL Albumin (3.4-5.0) g/dL Globulin (2.6-4.0) g/dL Albumin/Globulin Ratio (0.9-1.6) Lipase (73-393) U/L TSH 3rd Generation (0.36-3.74) uIU/mL Urine Color YELLOW Urine Appearance SLT CLOUDY Urine pH 6.5 (5.0-8.0) Ur Specific Granger 1.010 (1.001-1.035) Urine Protein NEGATIVE (NEGATIVE) mg/dL Urine Glucose (UA) NEGATIVE (NEGATIVE) mg/dL Urine Ketones NEGATIVE (NEGATIVE) mg/dL Urine Occult Blood NEGATIVE (NEGATIVE) Urine Nitrite NEGATIVE (NEGATIVE) Urine Bilirubin NEGATIVE (NEGATIVE) Urine Urobilinogen 0.2 (<2.0) EU/dL Ur Leukocyte Esterase SMALL H (NEGATIVE) Urine RBC 0-2 (0-2/HPF) Urine WBC 4-7 (0-5/HPF) Ur Epithelial Cells FEW (NONE-FEW) Urine Bacteria 1+ H (NEGATIVE) Hyaline Casts 0-1 (0-2/LPF) 10/26/18 10/26/18 Range/Units 04:58 04:58 WBC (4.0-11.0) K/uL RBC (4.30-5.90) M/uL Hgb (12.0-16.0) g/dL Hct (36.0-46.0) % MCV (80.0-98.0) fL MCH (27.0-32.0) pg MCHC (31.0-37.0) g/dL RDW Std Deviation (28.0-62.0) fl RDW Coeff of Fernando (11.0-15.0) % Plt Count (150-400) K/uL MPV (7.40-12.00) fL Neut % (Auto) (48.0-80.0) % Lymph % (Auto) (16.0-40.0) % Major % (Auto) (0.0-15.0) % Eos % (Auto) (0.0-7.0) % Baso % (Auto) (0.0-1.5) % Neut # (Auto) (1.4-5.7) K/uL Lymph # (Auto) (0.6-2.4) K/uL Major # (Auto) (0.0-0.8) K/uL Eos # (Auto) (0.0-0.7) K/uL Baso # (Auto) (0.0-0.1) K/uL Nucleated RBC % /100WBC Nucleated RBCs # K/uL Lactate (0.20-2.00) mmol/L Sodium 140 (136-145) mmol/L Potassium 2.9 L (3.5-5.1) mmol/L Chloride 106 (98-107) mmol/L Carbon Dioxide 27.6 (21.0-32.0) mmol/L BUN 15 (7.0-18.0) mg/dL Creatinine 0.9 (0.6-1.0) mg/dL Est Cr Clr Drug Dosing 62.22 mL/min Estimated GFR (MDRD) > 60.0 ml/min Glucose 104 (74-106) mg/dL Calcium 9.3 (8.5-10.1) mg/dL Magnesium 1.9 (1.8-2.4) mg/dL Total Bilirubin 0.3 (0.2-1.0) mg/dL AST 7 L (15-37) IU/L ALT 18 (14-63) IU/L Alkaline Phosphatase 67 (46-116) U/L Troponin I (0.000-0.056) ng/mL Total Protein 7.0 (6.4-8.2) g/dL Albumin 2.6 L (3.4-5.0) g/dL Globulin 4.4 H (2.6-4.0) g/dL Albumin/Globulin Ratio 0.6 L (0.9-1.6) Lipase (73-393) U/L TSH 3rd Generation (0.36-3.74) uIU/mL Urine Color Urine Appearance Urine pH (5.0-8.0) Ur Specific Granger (1.001-1.035) Urine Protein (NEGATIVE) mg/dL Urine Glucose (UA) (NEGATIVE) mg/dL Urine Ketones (NEGATIVE) mg/dL Urine Occult Blood (NEGATIVE) Urine Nitrite (NEGATIVE) Urine Bilirubin (NEGATIVE) Urine Urobilinogen (<2.0) EU/dL Ur Leukocyte Esterase (NEGATIVE) Urine RBC (0-2/HPF) Urine WBC (0-5/HPF) Ur Epithelial Cells (NONE-FEW) Urine Bacteria (NEGATIVE) Hyaline Casts (0-2/LPF) Med Orders - Current: Current Medications Acetaminophen (Tylenol) 650 mg PO Q6H PRN PRN Reason: Pain (mild 1-3) Duloxetine HCl (Cymbalta) 60 mg PO DAILY [facility] Last Admin: 10/26/18 08:57 Dose: 60 mg Enoxaparin Sodium (Lovenox) 40 mg SUBCUT Q24H [facility] Last Admin: 10/26/18 08:58 Dose: 40 mg Estrogens Conjugated (Premarin) 0.625 mg PO DAILY [facility] Last Admin: 10/26/18 09:02 Dose: Not Given Sodium Chloride (Normal Saline) 1,000 mls @ 125 mls/hr IV STAT [facility] Last Admin: 10/26/18 12:18 Dose: 125 mls/hr Levofloxacin/Dextrose 500 mg/ (Premix) 100 mls @ 100 mls/hr IV Q24H [facility] Last Admin: 10/25/18 21:35 Dose: 100 mls/hr Metronidazole 500 mg/ Premix 100 mls @ 100 mls/hr IV QID [facility] Last Admin: 10/26/18 12:17 Dose: 100 mls/hr Sodium Chloride (Normal Saline) 1,000 mls @ 125 mls/hr IV ASDIRECTED [facility] Potassium Chloride/Dextrose/Sod Cl (D5 1/4 Ns With 20 Meq Kcl) 1,000 mls @ 100 mls/hr IV ASDIRECTED [facility] Last Admin: 10/26/18 12:23 Dose: 100 mls/hr Levothyroxine Sodium (Synthroid) 88 mcg PO AC[facility]AKFAST [facility] Last Admin: 10/26/18 08:56 Dose: 88 mcg Morphine Sulfate (Morphine) 2 mg IVPUSH Q4H PRN PRN Reason: Pain (severe 7-10) Ondansetron HCl (Zofran) 4 mg IVPUSH Q4H PRN PRN Reason: Nausea/Vomiting Last Admin: 10/25/18 21:36 Dose: 4 mg Oxycodone HCl (Oxycodone) 5 mg PO Q4H PRN PRN Reason: Pain (moderate 4-6) Last Admin: 10/26/18 09:20 Dose: 5 mg Pantoprazole Sodium (Protonix) 40 mg PO DAILY [facility] Last Admin: 10/26/18 08:57 Dose: 40 mg Telmisartan (Micardis) 80 mg PO DAILY [facility] Last Admin: 10/26/18 10:41 Dose: Not Given Triamterene/HCTZ (Maxzide 25-37.5 Mg) 1 each PO DAILY [facility] Last Admin: 10/26/18 10:41 Dose: Not Given Discontinued Medications Sodium Chloride (Normal Saline) 1,000 mls @ 999 mls/hr IV BOLUS ONE Stop: 10/25/18 18:25 Last Admin: 10/25/18 17:32 Dose: 999 mls/hr Cefoxitin Sodium 2 gm/ Sodium (Chloride) 100 mls @ 200 mls/hr IV ONETIME ONE Stop: 10/25/18 20:44 Last Admin: 10/25/18 20:31 Dose: Not Given Cefoxitin Sodium 2 gm/ Premix 50 mls @ 100 mls/hr IV ONETIME ONE Stop: 10/25/18 20:59 Last Admin: 10/25/18 20:32 Dose: 100 mls/hr Iopamidol (Isovue Multipack-370 (76%)) 80 ml IVPUSH ONETIME STA Stop: 10/25/18 18:43 Last Admin: 10/25/18 18:42 Dose: 80 ml Ondansetron HCl (Zofran) 4 mg IVPUSH ONETIME ONE Stop: 10/25/18 17:31 Last Admin: 10/25/18 17:34 Dose: 4 mg
[2018-10-26 13:36] VITALS: BP 118/61
[2018-10-26] MEDS: Ondansetron 4 MG/2 ML SDV IVPUSH PRN (13:40)
== END 2018-10-26 14:15 | DRG 244 ==
LOC: MW.ED 17:16 → MW.MS 20:59
PROVIDERS: ADMIT Internal Medicine; ATTEND Internal Medicine
DX: K57.20 Diverticulitis of large intestine with perforation and abscess without bleeding (principal); I10 Essential (primary) hypertension; K21.9 Gastro-esophageal reflux disease without esophagitis; D64.9 Anemia, unspecified; E87.6 Hypokalemia; R18.8 Other ascites; E86.0 Dehydration; E05.90 Thyrotoxicosis, unspecified without thyrotoxic crisis or storm; Z86.010 Personal history of colon polyps; Z88.1 Allergy status to other antibiotic agents; Z79.899 Other long term (current) drug therapy; Z90.89 Acquired absence of other organs
CPT/HCPCS: 36415; 70450; 70450-26; 71045; 71045-26; 73030-26-RT; 73030-RT; 73562-26-RT; 73562-RT; 74177; 74177-26; 80053; 81001; 83605; 83690; 83735; 84443; 84484; 85025; 87040; 87086; 93005; 96361; 96365; 96375; 99285; 99285-25; A9270-GY; J0694; J1650; J1956; J2405; J3480; J3490; J7040; Q9967

== ENCOUNTER 2020-08-16 08:00 | Day surgery (SDC) | payer BC, OTHER ==
[~2020-08-16 08:00] MED LIST: Lactated Ringers 1,000 ML IV SCH; Sodium Chloride 0.9% 10 ML SDV IV PRN; Sodium Chloride 0.9% 10 ML Syringe FLUSH PRN; Sodium Chloride 0.9% 2.5 ML Syringe FLUSH PRN
[2020-08-16] MEDS ORDERED: Lidocaine 2% 5 ML SDV ONE (08:01)
[2020-08-16] MEDS ORDERED: fentaNYL 100 MCG/2 ML SDV ONE (08:02)
[2020-08-16] MEDS ORDERED: Midazolam 1 MG/ML 2 ML SDV ONE (08:02)
[2020-08-16] MEDS ORDERED: Propofol 200 MG/20 ML SDV ONE (08:02)
--- NOTE | 2020-08-16 08:13 | PCM.PREANE ---
Preanesthetic Assessment - Anesthesia/Transfusion/Family Hx Anesthesia History: Prior Anesthesia Without Reaction Other Type of Anesthesia Reaction Comment: "my father had a hard time coming out of anesthesia" Family History of Anesthesia Reaction: No (xc) Transfusion History: Prior Transfusion Without Reaction - Review of Systems General: No Symptoms Pulmonary: No Symptoms Cardiovascular: No Symptoms Gastrointestinal: No Symptoms Neurological: No Symptoms Other: Reports: None - Physical Assessment NPO Status Date: 08/16/20 NPO Status Time: 00:01 Height: 5 ft 7 in Weight: 225 lb ASA Class: 3 Mental Status: Alert & Oriented x3 Airway Class: Mallampati = 2 Dentition: Reports: Normal Dentition ROM/Head Extension: Full Lungs: Clear to Auscultation, Normal Respiratory Effort Cardiovascular: Regular Rate, Regular Rhythm - Allergies Allergies/Adverse Reactions: Allergies Allergy/AdvReac Type Severity Reaction Status Date / Time ciprofloxacin [From Cipro] Allergy Swelling Verified 08/10/20 12:30 - Anesthesia Plan Pre-Op Medication Ordered: None - Acknowledgements Anesthesia Type Planned: General Anesthesia Pt an Appropriate Candidate for the Planned Anesthesia: Yes Alternatives and Risks of Anesthesia Discussed w Pt/Guardian: Yes Pt/Guardian Understands and Agrees with Anesthesia Plan: Yes Additional Comments: npo tob quit 2016 etoh occ htn pt not aware of any CHF but echo done Jun 2019 shows EF 45-50% and mild decreased LV function she has not been admitted for AK, CP, or CHF takes lasix 80mg once a day for several years for leg swelling hayfever some type of c spine surgery - not a fusion no UE radiculopathy L foot n/t weakness after a bunion surgery depression andrwe obesity bmi 36 LBBB per ECG noted 2 years ago per pt par no questions PreAnesthesia Questionnaire HEENT History: Reports: Allergic Rhinitis, Other (See Below) Other HEENT History: wears glasses Cardiovascular History: Reports: Hypertension, Other (See Below) Other Cardiovascular History: left bundle branch block Respiratory History: Reports: None Gastrointestinal History: Reports: Colon Polyp, Diverticulosis, GERD Genitourinary History: Reports: None [employer] WORKER History: Reports: Musculoskeletal History: Reports: None Neurological History: Reports: None Psychiatric History: Reports: Anxiety, Depression Endocrine/Metabolic History: Reports: Hyperthyroidism, Hypothyroidism, Obesity/BMI 30+ Hematologic History: Reports: Blood Transfusion(s) Other Hematologic History: states transfusion as an infant Immunologic History: Reports: None Oncologic (Cancer) History: Reports: Thyroid Dermatologic History: Reports: Psoriasis - Infectious Disease History Infectious Disease History: Reports: None - Past Surgical History Head Surgeries/Procedures: Reports: None HEENT Surgical History: Reports: Naso-Sinus Surgery Cardiovascular Surgical History: Reports: None Respiratory Surgical History: Reports: None GI Surgical History: Reports: Colon, Colonoscopy, Other (See Below) Other GI Surgeries/Procedures: hx diverticulitis, colectomy for ruptured diverticulum Female Surgical History: Reports: Hysterectomy, Salpingo-Oophorectomy, Tubal Ligation Endocrine Surgical History: Reports: Thyroidectomy, Other (See Below) Other Endocrine Surgeries/Procedures: total thyroidectomy for thyroid cancer Neurological Surgical History: Reports: C-Spine, Lumbar Spine Other Neurological Surgeries/Procedures: neck and back surgery Musculoskeletal Surgical History: Reports: Arthroscopic Knee, Shoulder Surgery, Other (See Below) Other Musculoskeletal Surgeries/Procedures:: left bunionectomy, Oncologic Surgical History: Reports: None, Other (See Below) Other Oncologic Surgeries/Procedures: thyroidectomy Dermatological Surgical History: Reports: Plastic Surgical Reconstruction/Repair, Other (See Below) - SUBSTANCE USE Tobacco Use Status *Q: Former Tobacco User Tobacco Use Within Last Twelve Months: No Recreational Drug Use History: No - HOME MEDS Home Medications: Home Meds Cyanocobalamin (Vitamin B-12) [B-12 Compliance] 1 injection IM ASDIRECTED 10/25/18 [History] Pantoprazole [ProTONIX] 40 mg PO DAILY 10/25/18 [History] Aspirin [Adult Aspirin Regimen] 81 mg PO DAILY 07/06/20 [History] Furosemide [Lasix] 80 mg PO DAILY 07/06/20 [History] L.acidoph,Paracasei, B.lactis [Probiotic] 1 tab PO DAILY 07/06/20 [History] Levothyroxine Sodium [Levoxyl] 88 mcg PO DAILY 07/06/20 [History] Losartan Potassium 50 mg PO DAILY 07/06/20 [History] Potassium Chloride 10 meq PO BID 07/06/20 [History] Sennosides/Docusate Sodium [Senna Plus 8.6-50 mg Tablet] 1 - 2 tab PO DAILY 07/06/20 [History] Venlafaxine [Venlafaxine HCl ER] 150 mg PO DAILY 07/06/20 [History] carvediloL [Carvedilol] 25 mg PO BID 07/06/20 [History] clonazePAM [Clonazepam] 1 mg PO BEDTIME 07/06/20 [History] Estradiol Valerate [Delestrogen] 0 mg IM ASDIRECTED 08/10/20 [History] Semaglutide [Ozempic] 0.25 - 0.5 mg SQ WEEKLY 08/10/20 [History] - CURRENT (IN HOUSE) MEDS Current Meds: Current Medications Lactated Ringer's (Ringers, Lactated) 1,000 mls @ 125 mls/hr IV ASDIRECTED [facility] Sodium Chloride (Sodium Chloride 0.9% 10 Ml Syringe) 10 ml FLUSH ASDIRECTED PRN PRN Reason: Keep Vein Open Sodium Chloride (Sodium Chloride 0.9% 2.5 Ml Syringe) 2.5 ml FLUSH ASDIRECTED PRN PRN Reason: Keep Vein Open Sodium Chloride (Sodium Chloride 0.9% 10 Ml Syringe) 10 ml FLUSH ASDIRECTED PRN PRN Reason: Keep Vein Open Sodium Chloride (Sodium Chloride 0.9% 2.5 Ml Syringe) 2.5 ml FLUSH ASDIRECTED PRN PRN Reason: Keep Vein Open Sodium Chloride (Sodium Chloride 0.9% 10 Ml Sdv) 10 ml IV ASDIRECTED PRN PRN Reason: IV Use Discontinued Medications Fentanyl (Fentanyl 100 Mcg/2 Ml Sdv) Confirm Administered Dose 100 mcg .ROUTE .STK-MED ONE Stop: 08/16/20 08:03 Lidocaine (Lidocaine 2% 5 Ml Sdv) Confirm Administered Dose 5 ml .ROUTE .STK-MED ONE Stop: 08/16/20 08:02 Midazolam HCl (Midazolam 1 Mg/Ml 2 Ml Sdv) Confirm Administered Dose 2 mg .ROUTE .STK-MED ONE Stop: 08/16/20 08:03 Propofol (Propofol 200 Mg/20 Ml Sdv) Confirm Administered Dose 400 mg .ROUTE .STK-MED ONE Stop: 08/16/20 08:03
[2020-08-16] MEDS ORDERED: ePHEDrine 50 MG/ML SDV ONE (09:52)
--- NOTE | 2020-08-16 10:08 | PCM.OPNOTE ---
- General Post-Op/Procedure Note Date of Surgery/Procedure: 08/16/20 Operative Procedure(s): Diagnostic EGD and colonoscopy Findings: Normal appearing EGD with minimal scattered hyperplastic polyps in the body of the stomach Transverse colon, descending colon, rectal x 2, staple line polyps Pre Op Diagnosis: History of diverticulitis, history of colon polyps, reflux Post-Op Diagnosis: GERD, transverse colon polyp, descending colon polyp, rectal polyp x 2, staple line polyp Anesthesia Technique: MAC Primary Surgeon: Macarena Torres Condition: Good
[2020-08-16] MEDS ORDERED: Glycopyrrolate 0.2 MG/ML SDV ONE (10:18)
[2020-08-16] MEDS ORDERED: Phenylephrine/Normal Saline 100 MCG/ML 10 ML Syringe IVPUSH PRN (10:26)
[2020-08-16 11:23] VITALS: BP 114/57; PULSE 58
--- NOTE | 2020-08-16 11:27 | PCM48HPAN ---
Post Anesthesia Note - EVALUATION WITHIN 48HRS OF ANESTHETIC Vital Signs in Normal Range: Yes Patient Participated in Evaluation: Yes Respiratory Function Stable: Yes Airway Patent: Yes Cardiovascular Function Stable: Yes Hydration Status Stable: Yes Pain Control Satisfactory: Yes Nausea and Vomiting Control Satisfactory: Yes Mental Status Recovered: Yes Vital Signs: Last Vital Signs Temp 97.9 F 08/16/20 10:47 Pulse 58 L 08/16/20 10:47 Resp 14 08/16/20 10:47 BP 114/57 L 08/16/20 10:47 Pulse Ox 94 L 08/16/20 10:47
--- NOTE | 2020-08-16 11:27 | PCM.POSTAN ---
POST ANESTHESIA ASSESSMENT - MENTAL STATUS Mental Status: Alert (no anesthetic problems), Oriented - VITAL SIGNS Vital Signs: Last Vital Signs Temp 97.9 F 08/16/20 10:47 Pulse 58 L 08/16/20 10:47 Resp 14 08/16/20 10:47 BP 114/57 L 08/16/20 10:47 Pulse Ox 94 L 08/16/20 10:47 - RESPIRATORY Respiratory Status: Respiratory Rate WNL, Airway Patent, O2 Saturation Stable - CARDIOVASCULAR CV Status: Pulse Rate WNL, Blood Pressure Stable - GASTROINTESTINAL GI Status: No Symptoms - POST OP HYDRATION Hydration Status: Adequate & Stable
--- NOTE | 2020-08-17 18:04 | OR ---
SURGEON: MACARENA TORRES MD DATE OF PROCEDURE: 08/16/2020 PREOPERATIVE DIAGNOSES: 1. Reflux. 2. History of colon polyps. 3. History of diverticulitis, status post colon resection. POSTOPERATIVE DIAGNOSES: 1. Reflux. 2. Transverse colon polyp. 3. Descending colon polyp. 4. Staple line colon polyp. 5. Rectal polyp x2. PROCEDURE PERFORMED: Diagnostic esophagogastroduodenoscopy and colonoscopy. PRIMARY SURGEON: Macarena Torres MD. ANESTHESIA: MAC. INSTRUMENTS USED: Olympus endoscope and colonoscope. EXTENT OF THE EXAM: To the second portion of duodenum, to the cecum. PREPARATION: Good. LIMITATIONS: None. INDICATIONS FOR EXAMINATION: The patient is a 64-year-old female who came in to my clinic with complaints of worsening reflux and the need for a colonoscopy. Two years ago, she had perforated diverticulitis and underwent a laparoscopic sigmoidectomy. She does have a history of colon polyps. She is in need of a followup colonoscopy. The patient and I discussed the need for diagnostic EGD and colonoscopy. I explained the procedures, expected perioperative course, and the risks. She verbalized understanding and wishes to proceed. PROCEDURE IN DETAIL: The patient was brought to the endoscopy suite and placed in a left lateral decubitus position. A time-out was completed verifying the patient's name, age, date of , allergies, and procedure to be performed. Monitored anesthesia care was induced and a bite block was placed in the patient's mouth. Continuous oxygen was provided via nasal cannula throughout the procedure. After adequate sedation was achieved, a well-lubricated endoscope was placed in the patient's mouth and advanced under direct visualization to the level of the second portion of the duodenum. This appeared normal and a photograph was taken. The scope was then fully withdrawn while examining the color, texture, anatomy, and integrity mucosa of the upper GI tract. In the duodenum, stomach, and esophagus, I saw no evidence of ulceration or inflammation. When the scope was in the stomach, I took a photo of the pylorus as well as with the GE junction. Both appeared normal. In the distal esophagus, the Z-line appeared normal and a photograph was taken. Biopsies were taken of the gastric antrum, body, and fundus and sent for histologic review and H pylori testing. I took a biopsy 1 cm above the Z-line in the esophagus and sent that to Pathology, labeled as esophagus for histologic review. Overall, the exam was normal and the scope was removed. This portion of the procedure was terminated. A digital rectal exam was performed. This exam was within normal limits. A well-lubricated colonoscope was inserted into the rectum and advanced under direct visualization to the level of the cecum. The cecum was identified by both visual and anatomic landmarks. A photograph was taken of the cecal cap, however, I was unable to retroflex the scope within the cecum due to looping of the scope more proximally. The scope was then fully withdrawn while examining the color, texture, anatomy, and integrity of the mucosa from the cecum to the anal canal. The patient was noted to have several small sessile polyps. There was one in the transverse colon, one in the descending colon, and two in the rectum. These were all removed in piecemeal fashion using a cold biopsy forceps. The patient had a staple line at approximately 20 cm from the anal verge. There was a small what appeared to be inflammatory polyp along the staple line. This was removed and sent to Pathology, labeled as staple line colon polyp. I did not note any diverticula upon my exam. The scope was retroflexed within the rectum to allow visualization of the anal canal opening. This appeared normal and a photograph was taken. The scope was straightened out and fully withdrawn. The cecum to anus time was 16 minutes. The patient tolerated both procedures well and was transferred to the PACU in stable condition. ENDOSCOPIC DIAGNOSES: 1. Reflux. 2. Transverse colon polyp. 3. Descending colon polyp. 4. Staple line colon polyp. 5. Rectal polyp x2. RECOMMENDATION: Follow up in clinic in two weeks. AILEEN NIXON /[id number]
== END 2020-08-16 11:14 | disposition home or self-care (01) ==
LOC: MW.SDS 08:00
PROVIDERS: ATTEND Surgery
DX: D12.8 Benign neoplasm of rectum (principal); K63.5 Polyp of colon; K21.9 Gastro-esophageal reflux disease without esophagitis; K57.30 Diverticulosis of large intestine without perforation or abscess without bleeding; I11.0 Hypertensive heart disease with heart failure; I50.9 Heart failure, unspecified; E03.9 Hypothyroidism, unspecified; F17.210 Nicotine dependence, cigarettes, uncomplicated; Z88.8 Allergy status to other drugs, medicaments and biological substances; Z79.82 Long term (current) use of aspirin; Z79.899 Other long term (current) drug therapy; Z87.19 Personal history of other diseases of the digestive system; Z90.49 Acquired absence of other specified parts of digestive tract; Z98.890 Other specified postprocedural states
CPT/HCPCS: 43239; 45380; 88305; 88312; J2250; J2704; J3010; J7120; 00813

== ENCOUNTER 2020-11-19 15:25 | Inpatient (IN) | payer BC, OTHER ==
--- NOTE | 2020-11-19 15:37 | EDM.PDOC ---
ED HPI GENERAL MEDICAL PROBLEM - General Chief Complaint: Respiratory Problem Stated Complaint: COVID Time Seen by Provider: 11/19/20 15:26 Source of Information: Reports: Patient History Limitations: Reports: No Limitations - Related Data Allergies Allergy/AdvReac Type Severity Reaction Status Date / Time ciprofloxacin [From Cipro] Allergy Swelling Verified 08/10/20 12:30 Home Meds: Home Meds Cyanocobalamin (Vitamin B-12) [B-12 Compliance] 1 injection IM ASDIRECTED 10/25/18 [History] Pantoprazole [ProTONIX] 40 mg PO DAILY 10/25/18 [History] Aspirin [Adult Aspirin Regimen] 81 mg PO DAILY 07/06/20 [History] Furosemide [Lasix] 80 mg PO DAILY 07/06/20 [History] L.acidoph,Paracasei, B.lactis [Probiotic] 1 tab PO DAILY 07/06/20 [History] Levothyroxine Sodium [Levoxyl] 88 mcg PO DAILY 07/06/20 [History] Losartan Potassium 50 mg PO DAILY 07/06/20 [History] Potassium Chloride 10 meq PO BID 07/06/20 [History] Sennosides/Docusate Sodium [Senna Plus 8.6-50 mg Tablet] 1 - 2 tab PO DAILY 07/06/20 [History] Venlafaxine [Venlafaxine HCl ER] 150 mg PO DAILY 07/06/20 [History] carvediloL [Carvedilol] 25 mg PO BID 07/06/20 [History] clonazePAM [Clonazepam] 1 mg PO BEDTIME 07/06/20 [History] Estradiol Valerate [Delestrogen] 0 mg IM ASDIRECTED 08/10/20 [History] Semaglutide [Ozempic] 0.25 - 0.5 mg SQ WEEKLY 08/10/20 [History] Past Medical History HEENT History: Reports: Allergic Rhinitis, Other (See Below) Other HEENT History: wears glasses Cardiovascular History: Reports: Hypertension, Other (See Below) Other Cardiovascular History: left bundle branch block Respiratory History: Reports: None Gastrointestinal History: Reports: Colon Polyp, Diverticulosis, GERD Genitourinary History: Reports: 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: Musculoskeletal History: Reports: None Neurological History: Reports: None Psychiatric History: Reports: Anxiety, Depression Endocrine/Metabolic History: Reports: Hyperthyroidism, Hypothyroidism, Obesity/BMI 30+ Hematologic History: Reports: Blood Transfusion(s) Other Hematologic History: states transfusion as an Immunologic History: Reports: None Oncologic (Cancer) History: Reports: Thyroid Dermatologic History: Reports: Psoriasis - Infectious Disease History Infectious Disease History: Reports: None - Past Surgical History Head Surgeries/Procedures: Reports: None HEENT Surgical History: Reports: Naso-Sinus Surgery Cardiovascular Surgical History: Reports: None Respiratory Surgical History: Reports: None GI Surgical History: Reports: Colon, Colonoscopy, Other (See Below) Other GI Surgeries/Procedures: hx diverticulitis, colectomy for ruptured diverticulum Female Surgical History: Reports: Hysterectomy, Salpingo-Oophorectomy, Tubal Ligation Endocrine Surgical History: Reports: Thyroidectomy, Other (See Below) Other Endocrine Surgeries/Procedures: total thyroidectomy for thyroid cancer Neurological Surgical History: Reports: C-Spine, Lumbar Spine Other Neurological Surgeries/Procedures: neck and back surgery Musculoskeletal Surgical History: Reports: Arthroscopic Knee, Shoulder Surgery, Other (See Below) Other Musculoskeletal Surgeries/Procedures:: left bunionectomy, Oncologic Surgical History: Reports: None, Other (See Below) Other Oncologic Surgeries/Procedures: thyroidectomy Dermatological Surgical History: Reports: Plastic Surgical Reconstruction/Repair, Other (See Below) Social & Family History - Family History Family Medical History: No Pertinent Family History Oncologic: Reports: Colon - Caffeine Use Caffeine Use: Reports: Soda Other Caffeine Use: daily diet coke - Living Situation & Occupation Living situation: Reports: , with Family Occupation: Employed Departure - Discharge Information
[2020-11-19] MEDS ORDERED: Ondansetron 4 MG/2 ML SDV IVPUSH ONE (15:57)
[2020-11-19] MEDS ORDERED: Sodium Chloride 0.9% 1,000 ML IV ONE ×2 (15:57→17:25)
--- NOTE | 2020-11-19 16:10 | EDM.PDOC ---
ED HPI GENERAL MEDICAL PROBLEM - General Chief Complaint: Respiratory Problem Stated Complaint: COVID Time Seen by Provider: 11/19/20 15:26 Source of Information: Reports: Patient History Limitations: Reports: No Limitations - History of Present Illness INITIAL COMMENTS - FREE TEXT/NARRATIVE: HISTORY AND PHYSICAL: History of present illness: Patient is a 65-year-old female who presents to the emergency room with complaints of nausea, vomiting, shortness of breath, cough and chest pain since being diagnosed with COVID-19 on 11/13/2020. Patient states that she feels symptoms are not improving since her diagnosis. She did call her primary care provider out at [facility], they recommended she come into the emergency room for evaluation. Patient states she has been attempting to keep up on fluids but due to her nausea, vomiting and "nothing tasting right" she is concerned she is dehydrated as well. Complaints of mild generalized headache, no light or noise sensitivity. Patient denies any fever, chills, change in vision, syncope or near syncope. Denies any back pain or hemoptysis. Denies any abdominal pain, diarrhea, constipation or dysuria. Has not noted any blood in urine or stool. Past medical history of hypertension, left bundle branch block, diverticulitis and thyroid cancer. PCP: Dr. Krystina Serrano at [facility] Review of systems: As per history of present illness and below otherwise all systems reviewed and negative. Past medical history: As per history of present illness and as reviewed below otherwise noncontributory. Surgical history: As per history of present illness and as reviewed below otherwise noncontributory. Social history: See social history for further information Family history: As per history of present illness and as reviewed below otherwise noncontributory. Physical exam: General: Well developed and well nourished 65 year old female. Alert and orientated x 3. Nontoxic in appearance and in no acute distress. Vital signs are stable and have been reviewed by me. Nursing notes were reviewed. HEENT: Atraumatic, normocephalic, pupils equal and reactive bilaterally, negative for conjunctival pallor or scleral icterus, mucous membranes dry/tacky, trachea midline. No drooling or trismus noted. No meningeal signs. No hot potato voice noted. Lungs: Slightly diminished to auscultation bilaterally. No wheezes, rales, or rhonchi. Chest nontender to palpation. Normal work of breathing, no accessory muscles used. Dry nonproductive cough noted. Heart: S1S2, regular rate and rhythm without overt murmur, gallops, or rubs. No JVD. No peripheral edema Abdomen: Soft, nondistended, nontender. Negative for masses or costovertebral tenderness. Skin: Intact, warm, dry. No lesions or rashes noted. Hematologic: No petechiae or purpra. Mucosa appropriate color and normal nail bed color and refill. Extremities: Atraumatic, moves all extremities per self without difficulty or deficits, negative for cords or calf pain. Neurovascular unremarkable. Neuro: Awake, alert, oriented. Cranial nerves II through XII unremarkable. Cerebellum unremarkable. Motor and sensory unremarkable throughout. Exam nonfocal. Psychiatric: Mood and affect are appropriate. Normal thought process. Answering questions appropriately. Notes: *This patient was seen and evaluated during the 2019 SARS-CoV-2 novel coronavirus pandemic period. Community viral transmission is ongoing at time of this encounter and the emergency department is operating under pandemic response procedures. Patient is a 65-year-old female who presents to the emergency room with concerns of dehydration, nausea, vomiting, chest pain and shortness of breath since being diagnosed with COVID-19 last Thursday. She states she called her primary care provider today as she was concerned she felt she was not improving, they recommended she come to the emergency room. Patient clinically it does appear dehydrated, will do basic lab work and give her IV fluids while we are waiting. She is not hypoxic with oxygen saturation 94 to 96% on room air. Chest x-ray is unremarkable, with no significant change. Patient's potassium is 2.9. Have ordered a potassium rider 40 mEq IV to be given here in the emergency room. She still has mild nausea. Will hold off on PO potassium at this time. Blood pressure remains in the 80-90's over 50's. I did speak with Dr. Bashir, hospitalist on-call, about this patient. He is agreeable to keeping her for further care and management to treat her low potassium. Patient is aware and agreeable with plan of care stating she does not feel well enough to return home. Unable to get a copy of her COVID-19 test result, will have to repeat it here for admission. Diagnostics: CBC, CMP, Troponin, EKG, CXR, COVID Therapeutics: IV fluids, Zofran, Toradol, Potassium Ignacio 40meQ Impression: Hypokalemia Hypotensive COVID-19 Dehydration 4. If your symptoms should worsen, new symptoms develop or any of the signs and symptoms we discussed should arise please return to the emergency room or call 911 (if needed). Definitive disposition and diagnosis as appropriate pending reevaluation and review of above. - Related Data Allergies Allergy/AdvReac Type Severity Reaction Status Date / Time ciprofloxacin [From Cipro] Allergy Swelling Verified 08/10/20 12:30 Home Meds: Home Meds Cyanocobalamin (Vitamin B-12) [B-12 Compliance] 1 injection IM ASDIRECTED 10/25/18 [History] Pantoprazole [ProTONIX] 40 mg PO DAILY 10/25/18 [History] Aspirin [Adult Aspirin Regimen] 81 mg PO DAILY 07/06/20 [History] Furosemide [Lasix] 80 mg PO DAILY 07/06/20 [History] L.acidoph,Paracasei, B.lactis [Probiotic] 1 tab PO DAILY 07/06/20 [History] Levothyroxine Sodium [Levoxyl] 88 mcg PO DAILY 07/06/20 [History] Losartan Potassium 50 mg PO DAILY 07/06/20 [History] Potassium Chloride 10 meq PO BID 07/06/20 [History] Sennosides/Docusate Sodium [Senna Plus 8.6-50 mg Tablet] 1 - 2 tab PO DAILY 07/06/20 [History] Venlafaxine [Venlafaxine HCl ER] 150 mg PO DAILY 07/06/20 [History] carvediloL [Carvedilol] 25 mg PO BID 07/06/20 [History] clonazePAM [Clonazepam] 1 mg PO BEDTIME 07/06/20 [History] Estradiol Valerate [Delestrogen] 0 mg IM ASDIRECTED 08/10/20 [History] Semaglutide [Ozempic] 0.25 - 0.5 mg SQ WEEKLY 08/10/20 [History] Past Medical History HEENT History: Reports: Allergic Rhinitis, Other (See Below) Other HEENT History: wears glasses Cardiovascular History: Reports: Hypertension, Other (See Below) Other Cardiovascular History: left bundle branch block Respiratory History: Reports: None Gastrointestinal History: Reports: Colon Polyp, Diverticulosis, GERD Genitourinary History: Reports: None [employer]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: Musculoskeletal History: Reports: None Neurological History: Reports: None Psychiatric History: Reports: Anxiety, Depression Endocrine/Metabolic History: Reports: Hyperthyroidism, Hypothyroidism, Obesity/BMI 30+ Hematologic History: Reports: Blood Transfusion(s) Other Hematologic History: states transfusion as an infant Immunologic History: Reports: None Oncologic (Cancer) History: Reports: Thyroid Dermatologic History: Reports: Psoriasis - Infectious Disease History Infectious Disease History: Reports: None - Past Surgical History Head Surgeries/Procedures: Reports: None HEENT Surgical History: Reports: Naso-Sinus Surgery Cardiovascular Surgical History: Reports: None Respiratory Surgical History: Reports: None GI Surgical History: Reports: Colon, Colonoscopy, Other (See Below) Other GI Surgeries/Procedures: hx diverticulitis, colectomy for ruptured diverticulum Female Surgical History: Reports: Hysterectomy, Salpingo-Oophorectomy, Tubal Ligation Endocrine Surgical History: Reports: Thyroidectomy, Other (See Below) Other Endocrine Surgeries/Procedures: total thyroidectomy for thyroid cancer Neurological Surgical History: Reports: C-Spine, Lumbar Spine Other Neurological Surgeries/Procedures: neck and back surgery Musculoskeletal Surgical History: Reports: Arthroscopic Knee, Shoulder Surgery, Other (See Below) Other Musculoskeletal Surgeries/Procedures:: left bunionectomy, Oncologic Surgical History: Reports: None, Other (See Below) Other Oncologic Surgeries/Procedures: thyroidectomy Dermatological Surgical History: Reports: Plastic Surgical Reconstruction/Repair, Other (See Below) Social & Family History - Family History Family Medical History: No Pertinent Family History Oncologic: Reports: Colon - Caffeine Use Caffeine Use: Reports: Soda Other Caffeine Use: daily diet coke - Living Situation & Occupation Living situation: Reports: , with Family Occupation: Employed ED ROS GENERAL - Review of Systems Review Of Systems: Comprehensive ROS is negative, except as noted in HPI. ED EXAM, GENERAL - Physical Exam Exam: See Below (See dictation) Course - Vital Signs Last Recorded V/S: Last Vital Signs Temp 98.7 F 11/19/20 16:09 Pulse 89 11/19/20 17:55 Resp 17 11/19/20 17:55 BP 91/41 L 11/19/20 17:55 Pulse Ox 97 11/19/20 17:55 - Orders/Labs/Meds Orders: Active Orders 24 hr Category Date Time Status UA RFX LISBETH AND CULT IF INDIC [URIN] Stat Lab 11/19/20 15:57 Ordered Potassium Chloride Riders [KCL in Water 40 MEQ/100 ML] Med 11/19/20 17:06 Active 40 meq Premix Bag 1 bag IV ONETIME Medication Orders Potassium Chloride 40 meq/ (Premix) 100 mls @ 25 mls/hr IV ONETIME ONE Stop: 11/19/20 21:05 Last Admin: 11/19/20 17:47 Dose: 25 mls/hr Documented by: [email or web address] Sodium Chloride (Normal Saline) 1,000 mls @ 125 mls/hr IV STAT ONE Stop: 11/20/20 01:24 Last Admin: 11/19/20 17:47 Dose: 125 mls/hr Documented by: [email or web address] Labs: Laboratory Tests 11/19/20 11/19/20 11/19/20 Range/Units 16:08 16:08 16:25 WBC 7.56 (4.0-11.0) K/uL RBC 4.17 L (4.30-5.90) M/uL Hgb 12.5 (12.0-16.0) g/dL Hct 38.7 (36.0-46.0) % MCV 92.8 (80.0-98.0) fL MCH 30.0 (27.0-32.0) pg MCHC 32.3 (31.0-37.0) g/dL RDW Std Deviation 50.4 (28.0-62.0) fl RDW Coeff of Fernando 15 (11.0-15.0) % Plt Count 235 (150-400) K/uL MPV 8.80 (7.40-12.00) fL Neut % (Auto) 67.0 (48.0-80.0) % Lymph % (Auto) 29.4 (16.0-40.0) % [place] % (Auto) 3.4 (0.0-15.0) % Eos % (Auto) 0.1 (0.0-7.0) % Baso % (Auto) 0.1 (0.0-1.5) % Neut # (Auto) 5.1 (1.4-5.7) K/uL Lymph # (Auto) 2.2 (0.6-2.4) K/uL [place] # (Auto) 0.3 (0.0-0.8) K/uL Eos # (Auto) 0.0 (0.0-0.7) K/uL Baso # (Auto) 0.0 (0.0-0.1) K/uL Nucleated RBC % 0.0 /100WBC Nucleated RBCs # 0 K/uL Sodium 140 (136-145) mmol/L Potassium 2.9 L (3.5-5.1) mmol/L Chloride 100 (98-107) mmol/L Carbon Dioxide 29.3 (21.0-32.0) mmol/L BUN 17 (7.0-18.0) mg/dL Creatinine 1.4 H (0.6-1.0) mg/dL Est Cr Clr Drug Dosing 38.96 mL/min Estimated GFR (MDRD) 37.7 ml/min Glucose 128 H (74-106) mg/dL Lactic Acid 1.9 (0.4-2.0) mmol/L Calcium 8.8 (8.5-10.1) mg/dL Total Bilirubin 0.5 (0.2-1.0) mg/dL AST 26 (15-37) IU/L ALT 36 (14-63) IU/L Alkaline Phosphatase 67 (46-116) U/L Troponin I < 0.050 (0.000-0.056) ng/mL Total Protein 7.4 (6.4-8.2) g/dL Albumin 3.1 L (3.4-5.0) g/dL Globulin 4.3 H (2.6-4.0) g/dL Albumin/Globulin Ratio 0.7 L (0.9-1.6) Meds: Medications Generic Name Dose Route Start Last Admin Trade Name Freq PRN Reason Stop Dose Admin Potassium Chloride 40 meq/ 100 mls @ 25 mls/hr 11/19/20 17:06 11/19/20 17:47 Premix IV 11/19/20 21:05 25 mls/hr ONETIME ONE Administration Sodium Chloride 1,000 mls @ 125 mls/hr 11/19/20 17:25 11/19/20 17:47 Normal Saline IV 11/20/20 01:24 125 mls/hr STAT ONE Administration Discontinued Medications Generic Name Dose Route Start Last Admin Trade Name Freq PRN Reason Stop Dose Admin Sodium Chloride 1,000 mls @ 999 mls/hr 11/19/20 15:57 11/19/20 16:32 Normal Saline IV 11/19/20 16:57 999 mls/hr STAT ONE Administration Ondansetron HCl 4 mg 11/19/20 15:57 11/19/20 16:32 Ondansetron 4 Mg/2 Ml Sdv IVPUSH 11/19/20 15:58 4 mg ONETIME ONE Administration Departure - Departure Time of Disposition: 18:01 Disposition: Refer to Observation Clinical Impression: COVID-19, Hypokalemia, Dehydration Hypotension Qualifiers: Hypotension type: unspecified hypotension type Qualified Code(s): I95.9 - Hypotension, unspecified - Discharge Information Sepsis Event Note (ED) - Focused Exam Vital Signs: Vital Signs Temp Pulse Resp BP Pulse Ox 11/19/20 17:05 88 16 84/48 L 95 11/19/20 16:09 98.7 F 79 18 94/51 L 95 - My Orders Last 24 Hours: My Active Orders 11/19/20 15:57 UA RFX LISBETH AND CULT IF INDIC [URIN] Stat 11/19/20 17:06 Potassium Chloride Riders [KCL in Water 40 MEQ/100 ML] 40 meq Premix Bag 1 bag IV ONETIME - Assessment/Plan Last 24 Hours: My Active Orders 11/19/20 15:57 UA RFX LISBETH AND CULT IF INDIC [URIN] Stat 11/19/20 17:06 Potassium Chloride Riders [KCL in Water 40 MEQ/100 ML] 40 meq Premix Bag 1 bag IV ONETIME
--- NOTE | 2020-11-19 16:19 | PCM.EKG ---
#1 Interpretation Time: 16:19 EKG Interpretation Comments: 80, left bundle branch block, negative modified Sbarbossa criteria
--- NOTE | 2020-11-19 16:39 | CR ---
INDICATION: Positive COVID-19 viral infection. Shortness of breath. TECHNIQUE: AP portable upright chest. COMPARISON: October 15, 2018. FINDINGS: Shallow inspiration. Clear lungs. Normal heart size. The included skeleton is unremarkable. IMPRESSION: Negative portable chest. No significant change. Dictated by Zak Pérez MD @ 11/19/2020 4:37:[address] Zak Pérez @ Nov 19 2020 4:37PM
[2020-11-19 16:45] LABS: BLOOD UREA NITROGEN,BUN 17 mg/dL (7.0-18.0); CARBON DIOXIDE,CO2 29.3 mmol/L (21.0-32.0); CHLORIDE,CL 100 mmol/L (98-107); GLUCOSE RANDOM 128 mg/dL (74-106); POTASSIUM,K 2.9 mmol/L (3.5-5.1); SODIUM,NA 140 mmol/L (136-145)
[2020-11-19] MEDS ORDERED: Potassium Chloride Riders 40 MEQ in Premix Bag 1 BAG IV ONE (17:06)
--- NOTE | 2020-11-19 18:33 | PCM.HP.2 ---
H&P History of Present Illness - General Date of Service: 11/19/20 Admit Problem/Dx: Admission Diagnosis/Problem Admission Diagnosis/Problem Hypokalemia - History of Present Illness Initial Comments - Free Text/Narative: 65 yo female with pmh of hypothyroidism, hypertension, and depression who was diagnosed with COVID on 11/13/20. Patient reports she had had shortness of breath, cough, nausea and vomiting for three days before testing positive. She was vaccinated for COVID with Moderna in [facility]. She called her clinic and they told her to come to the ER for evaluation. She was noted to be satting 95% on Room air with BP in the 90s systolic. Creatinine was 1.4 and potassium was 2.9 - Related Data Allergies/Adverse Reactions: Allergies Allergy/AdvReac Type Severity Reaction Status Date / Time ciprofloxacin [From Cipro] Allergy Swelling Verified 08/10/20 12:30 Home Medications: Home Meds Aspirin [Adult Aspirin Regimen] 81 mg PO DAILY 07/06/20 [History] Furosemide [Lasix] 120 mg PO DAILY 07/06/20 [History] Levothyroxine Sodium [Levoxyl] 88 mcg PO DAILY 07/06/20 [History] Losartan Potassium 50 mg PO DAILY 07/06/20 [History] Potassium Chloride 10 meq PO BID 07/06/20 [History] Venlafaxine [Venlafaxine HCl ER] 150 mg PO DAILY 07/06/20 [History] carvediloL [Carvedilol] 25 mg PO DAILY 07/06/20 [History] clonazePAM [Clonazepam] 1 mg PO BEDTIME 07/06/20 [History] Estradiol Valerate [Delestrogen] 0 mg IM ASDIRECTED 08/10/20 [History] Esomeprazole [NexIUM] 20 mg PO DAILY 11/19/20 [History] Past Medical History HEENT History: Reports: Allergic Rhinitis, Other (See Below) Other HEENT History: wears glasses Cardiovascular History: Reports: Hypertension, Other (See Below) Other Cardiovascular History: left bundle branch block Respiratory History: Reports: None Gastrointestinal History: Reports: Colon Polyp, Diverticulosis, GERD Genitourinary History: Reports: None [employer] History: Reports: Musculoskeletal History: Reports: None Neurological History: Reports: None Psychiatric History: Reports: Anxiety, Depression Endocrine/Metabolic History: Reports: Hyperthyroidism, Hypothyroidism, Obes ity/BMI 30+ Hematologic History: Reports: Blood Transfusion(s) Other Hematologic History: states transfusion as an infant Immunologic History: Reports: None Oncologic (Cancer) History: Reports: Thyroid Dermatologic History: Reports: Psoriasis - Infectious Disease History Infectious Disease History: Reports: None - Past Surgical History Head Surgeries/Procedures: Reports: None HEENT Surgical History: Reports: Naso-Sinus Surgery Cardiovascular Surgical History: Reports: None Respiratory Surgical History: Reports: None GI Surgical History: Reports: Colon, Colonoscopy, Other (See Below) Other GI Surgeries/Procedures: hx diverticulitis, colectomy for ruptured diverticulum Female Surgical History: Reports: Hysterectomy, Salpingo-Oophorectomy, Tubal Ligation Endocrine Surgical History: Reports: Thyroidectomy, Other (See Below) Other Endocrine Surgeries/Procedures: total thyroidectomy for thyroid cancer Neurological Surgical History: Reports: C-Spine, Lumbar Spine Other Neurological Surgeries/Procedures: neck and back surgery Musculoskeletal Surgical History: Reports: Arthroscopic Knee, Shoulder Surgery, Other (See Below) Other Musculoskeletal Surgeries/Procedures:: left bunionectomy, Oncologic Surgical History: Reports: None, Other (See Below) Other Oncologic Surgeries/Procedures: thyroidectomy Dermatological Surgical History: Reports: Plastic Surgical Reconstruction/Repair, Other (See Below) Social & Family History - Family History Family Medical History: No Pertinent Family History Oncologic: Reports: Colon - Tobacco Use Tobacco Use Status *Q: Never Tobacco User - Caffeine Use Caffeine Use: Reports: None Other Caffeine Use: daily diet coke - Recreational Drug Use Recreational Drug Use: No - Living Situation & Occupation Living situation: Reports: , with Family Occupation: Employed H&P Review of Systems - Review of Systems: Review Of Systems: Comprehensive ROS is negative, except as noted in HPI. Exam - Exam Exam: See Below - Vital Signs Vital Signs: Last Vital Signs Temp 37.1 C 11/19/20 16:09 Pulse 89 11/19/20 17:55 Resp 17 11/19/20 17:55 BP 91/41 L 11/19/20 17:55 Pulse Ox 97 11/19/20 17:55 Weight: 98.883 kg - Exam General: Alert, Oriented HEENT: Mucosa Moist & [place] Lungs: Clear to Auscultation, Normal Respiratory Effort Cardiovascular: Regular Rate, Regular Rhythm GI/Abdominal Exam: Normal Bowel Sounds, Soft, Non-Tender Extremities: Non-Tender, No Pedal Edema Skin: Warm, Dry, Intact - Patient Data Lab Results Last 24 hrs: Laboratory Results - last 24 hr 11/19/20 11/19/20 11/19/20 Range/Units 16:08 16:08 16:25 WBC 7.56 (4.0-11.0) K/uL RBC 4.17 L (4.30-5.90) M/uL Hgb 12.5 (12.0-16.0) g/dL Hct 38.7 (36.0-46.0) % MCV 92.8 (80.0-98.0) fL MCH 30.0 (27.0-32.0) pg MCHC 32.3 (31.0-37.0) g/dL RDW Std Deviation 50.4 (28.0-62.0) fl RDW Coeff of Fernando 15 (11.0-15.0) % Plt Count 235 (150-400) K/uL MPV 8.80 (7.40-12.00) fL Neut % (Auto) 67.0 (48.0-80.0) % Lymph % (Auto) 29.4 (16.0-40.0) % [place] % (Auto) 3.4 (0.0-15.0) % Eos % (Auto) 0.1 (0.0-7.0) % Baso % (Auto) 0.1 (0.0-1.5) % Neut # (Auto) 5.1 (1.4-5.7) K/uL Lymph # (Auto) 2.2 (0.6-2.4) K/uL [place] # (Auto) 0.3 (0.0-0.8) K/uL Eos # (Auto) 0.0 (0.0-0.7) K/uL Baso # (Auto) 0.0 (0.0-0.1) K/uL Nucleated RBC % 0.0 /100WBC Nucleated RBCs # 0 K/uL Sodium 140 (136-145) mmol/L Potassium 2.9 L (3.5-5.1) mmol/L Chloride 100 (98-107) mmol/L Carbon Dioxide 29.3 (21.0-32.0) mmol/L BUN 17 (7.0-18.0) mg/dL Creatinine 1.4 H (0.6-1.0) mg/dL Est Cr Clr Drug Dosing 38.96 mL/min Estimated GFR (MDRD) 37.7 ml/min Glucose 128 H (74-106) mg/dL Lactic Acid 1.9 (0.4-2.0) mmol/L Calcium 8.8 (8.5-10.1) mg/dL Total Bilirubin 0.5 (0.2-1.0) mg/dL AST 26 (15-37) IU/L ALT 36 (14-63) IU/L Alkaline Phosphatase 67 (46-116) U/L Troponin I < 0.050 (0.000-0.056) ng/mL Total Protein 7.4 (6.4-8.2) g/dL Albumin 3.1 L (3.4-5.0) g/dL Globulin 4.3 H (2.6-4.0) g/dL Albumin/Globulin Ratio 0.7 L (0.9-1.6) Result Diagrams: 11/19/20 16:08 11/19/20 16:08 Sepsis Event Note - Evaluation Sepsis Screening Result: No Definite Risk - Focused Exam Vital Signs: Vital Signs Temp Pulse Resp BP Pulse Ox 11/19/20 17:55 89 17 91/41 L 97 11/19/20 17:05 88 16 84/48 L 95 11/19/20 16:09 37.1 C 79 18 94/51 L 95 Problem List Initiated/Reviewed/Updated: Yes Orders Last 24hrs: Active Orders 24 hr Category Date Time Status Admission Status [Patient Status] [ADT] Stat ADT 11/19/20 17:10 Active Antiembolic Devices [RC] PER UNIT ROUTINE Care 11/19/20 18:22 Active Oxygen Therapy [RC] PRN Care 11/19/20 18:20 Active VTE/DVT Education [RC] PER UNIT ROUTINE Care 11/19/20 18:20 Active Vital Signs [RC] Q4H Care 11/19/20 18:20 Active Regular Diet [DIET] Diet 11/19/20 Breakfast Active CBC WITH AUTO DIFF [HEME] AM Lab 11/20/20 05:11 Ordered COMPREHENSIVE METABOLIC PN,CMP [CHEM] AM Lab 11/20/20 05:11 Ordered CORONAVIRUS COVID-19 DION [MOLEC] Stat Lab 11/19/20 17:18 Received UA RFX LISBETH AND CULT IF INDIC [URIN] Stat Lab 11/19/20 15:57 Ordered Acetaminophen [TylenoL] Med 11/19/20 18:20 Active 650 mg PO Q4H PRN Enoxaparin [Lovenox] Med 11/19/20 18:00 Active 40 mg SUBCUT Q24H Esomeprazole [NexIUM] Med 11/20/20 09:00 Ordered 20 mg PO DAILY Levothyroxine [Synthroid] Med 11/20/20 07:30 Active 88 mcg PO ACBRK Ondansetron [Zofran] Med 11/19/20 18:20 Active 4 mg IVPUSH Q4H PRN Potassium Chloride Riders [KCL in Water 40 MEQ/100 ML] Med 11/19/20 17:06 Active 40 meq Premix Bag 1 bag IV ONETIME Sodium Chloride 0.9% [Normal Saline] 1,000 ml Med 11/19/20 17:25 Active IV STAT Venlafaxine Med 11/20/20 09:00 Ordered 150 mg PO DAILY Sequential Compression Device [OM.PC] Per Unit Routine Oth 11/19/20 18:21 Ordered Resuscitation Status Routine Resus Stat 11/19/20 18:20 Ordered Medication Orders Acetaminophen (Acetaminophen 325 Mg Tab) 650 mg PO Q4H PRN PRN Reason: Pain (Mild 1-3)/fever Enoxaparin Sodium (Enoxaparin 40 Mg/0.4 Ml Syringe) 40 mg SUBCUT Q24H LATOYA Potassium Chloride 40 meq/ (Premix) 100 mls @ 25 mls/hr IV ONETIME ONE Stop: 11/19/20 21:05 Last Admin: 11/19/20 17:47 Dose: 25 mls/hr Documented by: [id number] Sodium Chloride (Normal Saline) 1,000 mls @ 125 mls/hr IV STAT ONE Stop: 11/20/20 01:24 Last Admin: 11/19/20 17:47 Dose: 125 mls/hr Documented by: [id number] Levothyroxine Sodium (Levothyroxine 88 Mcg Tab) 88 mcg PO ACBRK LATOYA Non-Formulary Medication (Esomeprazole [Nexium]) 20 mg PO DAILY LATOYA Non-Formulary Medication (Venlafaxine) 150 mg PO DAILY LATOYA Ondansetron HCl (Ondansetron 4 Mg/2 Ml Sdv) 4 mg IVPUSH Q4H PRN PRN Reason: Nausea Assessment/Plan Comment:: 65 yo female admitted with COVID due to gastroenteritis, dehydration, acute kidney injury and hypokalemia. We will hydrate appropriately with IV fluids. Treat with antiemetics and replace potassium. Patient is not hypoxic so no indication for dexamethason.
[2020-11-19] MEDS: Ondansetron 4 MG/2 ML SDV IVPUSH PRN (20:05)
[2020-11-19] MEDS: Enoxaparin 40 MG/0.4 ML Syringe SUBCUT SCH (20:12)
[2020-11-19] MEDS: Acetaminophen 325 MG Tab PO PRN (20:35)
[2020-11-19] MEDS: Omeprazole 20 MG Cap.CR PO SCH (23:16)
[2020-11-20] MEDS: Acetaminophen 325 MG Tab PO PRN ×2 (00:42→05:05)
[2020-11-20 00:46] LABS: CARBON DIOXIDE,CO2 29.9 mmol/L (21.0-32.0); POTASSIUM,K 3.2 mmol/L (3.5-5.1)
[2020-11-20] MEDS ORDERED: Sodium Chloride 0.9% 500 ML IV ONE (01:25)
[2020-11-20] MEDS ORDERED: Omeprazole 20 MG Cap.CR PO SCH (07:30)
[2020-11-20 07:40] LABS: CARBON DIOXIDE,CO2 28.7 mmol/L (21.0-32.0); POTASSIUM,K 3.6 mmol/L (3.5-5.1)
[2020-11-20] MEDS: Levothyroxine 88 MCG Tab PO SCH (07:48)
[2020-11-20] MEDS ORDERED: Potassium Chloride 20 MEQ Tab.ER PO ONE (08:10)
[2020-11-20] MEDS: Venlafaxine 75 MG Cap.ER PO SCH (09:14)
[2020-11-20] MEDS: Ondansetron 4 MG/2 ML SDV IVPUSH PRN ×2 (11:06→16:47)
--- NOTE | 2020-11-20 14:32 | PCM.PN ---
- General Info Date of Service: 11/20/20 - Review of Systems Systems Review Comment:: reports headache, nausea and vomiting - Patient Data Vitals - Most Recent: Last Vital Signs Temp 37.2 C 11/20/20 13:32 Pulse 80 11/20/20 13:32 Resp 18 11/20/20 13:32 BP 117/57 L 11/20/20 13:32 Pulse Ox 95 11/20/20 13:32 Weight - Most Recent: 98.883 kg I&O - Last 24 Hours: Intake & Output 11/19/20 11/20/20 11/20/20 22:59 06:59 14:59 Intake Total 100 1620 Output Total 0 Balance 100 1620 Lab Results Last 24 Hours: Laboratory Results - last 24 hr 11/19/20 11/19/20 11/19/20 Range/Units 16:08 16:08 16:25 WBC 7.56 (4.0-11.0) K/uL RBC 4.17 L (4.30-5.90) M/uL Hgb 12.5 (12.0-16.0) g/dL Hct 38.7 (36.0-46.0) % MCV 92.8 (80.0-98.0) fL MCH 30.0 (27.0-32.0) pg MCHC 32.3 (31.0-37.0) g/dL RDW Std Deviation 50.4 (28.0-62.0) fl RDW Coeff of Fernando 15 (11.0-15.0) % Plt Count 235 (150-400) K/uL MPV 8.80 (7.40-12.00) fL Neut % (Auto) 67.0 (48.0-80.0) % Lymph % (Auto) 29.4 (16.0-40.0) % Howard % (Auto) 3.4 (0.0-15.0) % Eos % (Auto) 0.1 (0.0-7.0) % Baso % (Auto) 0.1 (0.0-1.5) % Neut # (Auto) 5.1 (1.4-5.7) K/uL Lymph # (Auto) 2.2 (0.6-2.4) K/uL Howard # (Auto) 0.3 (0.0-0.8) K/uL Eos # (Auto) 0.0 (0.0-0.7) K/uL Baso # (Auto) 0.0 (0.0-0.1) K/uL Nucleated RBC % 0.0 /100WBC Nucleated RBCs # 0 K/uL Sodium 140 (136-145) mmol/L Potassium 2.9 L (3.5-5.1) mmol/L Chloride 100 (98-107) mmol/L Carbon Dioxide 29.3 (21.0-32.0) mmol/L BUN 17 (7.0-18.0) mg/dL Creatinine 1.4 H (0.6-1.0) mg/dL Est Cr Clr Drug Dosing 38.96 mL/min Estimated GFR (MDRD) 37.7 ml/min Glucose 128 H (74-106) mg/dL Lactic Acid 1.9 (0.4-2.0) mmol/L Calcium 8.8 (8.5-10.1) mg/dL Magnesium (1.8-2.4) mg/dL Total Bilirubin 0.5 (0.2-1.0) mg/dL AST 26 (15-37) IU/L ALT 36 (14-63) IU/L Alkaline Phosphatase 67 (46-116) U/L Troponin I < 0.050 (0.000-0.056) ng/mL Total Protein 7.4 (6.4-8.2) g/dL Albumin 3.1 L (3.4-5.0) g/dL Globulin 4.3 H (2.6-4.0) g/dL Albumin/Globulin Ratio 0.7 L (0.9-1.6) Urine Color Urine Appearance Urine pH (5.0-8.0) Ur Specific [place] (1.001-1.035) Urine Protein (NEGATIVE) mg/dL Urine Glucose (UA) (NEGATIVE) mg/dL Urine Ketones (NEGATIVE) mg/dL Urine Occult Blood (NEGATIVE) Urine Nitrite (NEGATIVE) Urine Bilirubin (NEGATIVE) Urine Urobilinogen (<2.0) EU/dL Ur Leukocyte Esterase (NEGATIVE) SARS-CoV-2 RNA (DION) (NEGATIVE) 11/19/20 11/20/20 11/20/20 Range/Units 17:18 00:25 01:45 WBC (4.0-11.0) K/uL RBC (4.30-5.90) M/uL Hgb (12.0-16.0) g/dL Hct (36.0-46.0) % MCV (80.0-98.0) fL MCH (27.0-32.0) pg MCHC (31.0-37.0) g/dL RDW Std Deviation (28.0-62.0) fl RDW Coeff of Fernando (11.0-15.0) % Plt Count (150-400) K/uL MPV (7.40-12.00) fL Neut % (Auto) (48.0-80.0) % Lymph % (Auto) (16.0-40.0) % Howard % (Auto) (0.0-15.0) % Eos % (Auto) (0.0-7.0) % Baso % (Auto) (0.0-1.5) % Neut # (Auto) (1.4-5.7) K/uL Lymph # (Auto) (0.6-2.4) K/uL Howard # (Auto) (0.0-0.8) K/uL Eos # (Auto) (0.0-0.7) K/uL Baso # (Auto) (0.0-0.1) K/uL Nucleated RBC % /100WBC Nucleated RBCs # K/uL Sodium 139 (136-145) mmol/L Potassium 3.2 L (3.5-5.1) mmol/L Chloride 104 (98-107) mmol/L Carbon Dioxide 29.9 (21.0-32.0) mmol/L BUN 19 H (7.0-18.0) mg/dL Creatinine 1.2 H (0.6-1.0) mg/dL Est Cr Clr Drug Dosing 45.45 mL/min Estimated GFR (MDRD) 45.1 ml/min Glucose 100 (74-106) mg/dL Lactic Acid 0.5 (0.4-2.0) mmol/L Calcium 7.8 L (8.5-10.1) mg/dL Magnesium (1.8-2.4) mg/dL Total Bilirubin (0.2-1.0) mg/dL AST (15-37) IU/L ALT (14-63) IU/L Alkaline Phosphatase (46-116) U/L Troponin I (0.000-0.056) ng/mL Total Protein (6.4-8.2) g/dL Albumin (3.4-5.0) g/dL Globulin (2.6-4.0) g/dL Albumin/Globulin Ratio (0.9-1.6) Urine Color Urine Appearance Urine pH (5.0-8.0) Ur Specific [place] (1.001-1.035) Urine Protein (NEGATIVE) mg/dL Urine Glucose (UA) (NEGATIVE) mg/dL Urine Ketones (NEGATIVE) mg/dL Urine Occult Blood (NEGATIVE) Urine Nitrite (NEGATIVE) Urine Bilirubin (NEGATIVE) Urine Urobilinogen (<2.0) EU/dL Ur Leukocyte Esterase (NEGATIVE) SARS-CoV-2 RNA (DION) POSITIVE H (NEGATIVE) 11/20/20 11/20/20 11/20/20 Range/Units 05:25 05:30 05:30 WBC 8.05 (4.0-11.0) K/uL RBC 3.66 L (4.30-5.90) M/uL Hgb 10.8 L (12.0-16.0) g/dL Hct 34.1 L (36.0-46.0) % MCV 93.2 (80.0-98.0) fL MCH 29.5 (27.0-32.0) pg MCHC 31.7 (31.0-37.0) g/dL RDW Std Deviation 51.8 (28.0-62.0) fl RDW Coeff of Fernando 15 (11.0-15.0) % Plt Count 228 (150-400) K/uL MPV 9.20 (7.40-12.00) fL Neut % (Auto) 66.9 (48.0-80.0) % Lymph % (Auto) 27.5 (16.0-40.0) % Howard % (Auto) 5.0 (0.0-15.0) % Eos % (Auto) 0.5 (0.0-7.0) % Baso % (Auto) 0.1 (0.0-1.5) % Neut # (Auto) 5.4 (1.4-5.7) K/uL Lymph # (Auto) 2.2 (0.6-2.4) K/uL Howard # (Auto) 0.4 (0.0-0.8) K/uL Eos # (Auto) 0.0 (0.0-0.7) K/uL Baso # (Auto) 0.0 (0.0-0.1) K/uL Nucleated RBC % 0.0 /100WBC Nucleated RBCs # 0 K/uL Sodium 140 (136-145) mmol/L Potassium 3.6 (3.5-5.1) mmol/L Chloride 105 (98-107) mmol/L Carbon Dioxide 28.7 (21.0-32.0) mmol/L BUN 17 (7.0-18.0) mg/dL Creatinine 1.2 H (0.6-1.0) mg/dL Est Cr Clr Drug Dosing 45.45 mL/min Estimated GFR (MDRD) 45.1 ml/min Glucose 95 (74-106) mg/dL Lactic Acid (0.4-2.0) mmol/L Calcium 8.0 L (8.5-10.1) mg/dL Magnesium 1.8 (1.8-2.4) mg/dL Total Bilirubin 0.4 (0.2-1.0) mg/dL AST 24 (15-37) IU/L ALT 33 (14-63) IU/L Alkaline Phosphatase 54 (46-116) U/L Troponin I (0.000-0.056) ng/mL Total Protein 6.4 (6.4-8.2) g/dL Albumin 2.5 L (3.4-5.0) g/dL Globulin 3.9 (2.6-4.0) g/dL Albumin/Globulin Ratio 0.6 L (0.9-1.6) Urine Color Urine Appearance Urine pH (5.0-8.0) Ur Specific [place] (1.001-1.035) Urine Protein (NEGATIVE) mg/dL Urine Glucose (UA) (NEGATIVE) mg/dL Urine Ketones (NEGATIVE) mg/dL Urine Occult Blood (NEGATIVE) Urine Nitrite (NEGATIVE) Urine Bilirubin (NEGATIVE) Urine Urobilinogen (<2.0) EU/dL Ur Leukocyte Esterase (NEGATIVE) SARS-CoV-2 RNA (DION) (NEGATIVE) 11/20/20 Range/Units 06:15 WBC (4.0-11.0) K/uL RBC (4.30-5.90) M/uL Hgb (12.0-16.0) g/dL Hct (36.0-46.0) % MCV (80.0-98.0) fL MCH (27.0-32.0) pg MCHC (31.0-37.0) g/dL RDW Std Deviation (28.0-62.0) fl RDW Coeff of Fernando (11.0-15.0) % Plt Count (150-400) K/uL MPV (7.40-12.00) fL Neut % (Auto) (48.0-80.0) % Lymph % (Auto) (16.0-40.0) % Howard % (Auto) (0.0-15.0) % Eos % (Auto) (0.0-7.0) % Baso % (Auto) (0.0-1.5) % Neut # (Auto) (1.4-5.7) K/uL Lymph # (Auto) (0.6-2.4) K/uL Howard # (Auto) (0.0-0.8) K/uL Eos # (Auto) (0.0-0.7) K/uL Baso # (Auto) (0.0-0.1) K/uL Nucleated RBC % /100WBC Nucleated RBCs # K/uL Sodium (136-145) mmol/L Potassium (3.5-5.1) mmol/L Chloride (98-107) mmol/L Carbon Dioxide (21.0-32.0) mmol/L BUN (7.0-18.0) mg/dL Creatinine (0.6-1.0) mg/dL Est Cr Clr Drug Dosing mL/min Estimated GFR (MDRD) ml/min Glucose (74-106) mg/dL Lactic Acid (0.4-2.0) mmol/L Calcium (8.5-10.1) mg/dL Magnesium (1.8-2.4) mg/dL Total Bilirubin (0.2-1.0) mg/dL AST (15-37) IU/L ALT (14-63) IU/L Alkaline Phosphatase (46-116) U/L Troponin I (0.000-0.056) ng/mL Total Protein (6.4-8.2) g/dL Albumin (3.4-5.0) g/dL Globulin (2.6-4.0) g/dL Albumin/Globulin Ratio (0.9-1.6) Urine Color YELLOW Urine Appearance CLEAR Urine pH 6.0 (5.0-8.0) Ur Specific [place] 1.015 (1.001-1.035) Urine Protein NEGATIVE (NEGATIVE) mg/dL Urine Glucose (UA) NEGATIVE (NEGATIVE) mg/dL Urine Ketones NEGATIVE (NEGATIVE) mg/dL Urine Occult Blood NEGATIVE (NEGATIVE) Urine Nitrite NEGATIVE (NEGATIVE) Urine Bilirubin NEGATIVE (NEGATIVE) Urine Urobilinogen 0.2 (<2.0) EU/dL Ur Leukocyte Esterase NEGATIVE (NEGATIVE) SARS-CoV-2 RNA (DION) (NEGATIVE) Med Orders - Current: Current Medications Acetaminophen (Acetaminophen 325 Mg Tab) 650 mg PO Q4H PRN PRN Reason: Pain (Mild 1-3)/fever Last Admin: 11/20/20 05:05 Dose: 650 mg Documented by: Enoxaparin Sodium (Enoxaparin 40 Mg/0.4 Ml Syringe) 40 mg SUBCUT Q24H [facility] Last Admin: 11/19/20 20:12 Dose: 40 mg Documented by: Ibuprofen (Ibuprofen 600 Mg Tab) 600 mg PO Q8H PRN PRN Reason: Pain Levothyroxine Sodium (Levothyroxine 88 Mcg Tab) 88 mcg PO ACBRK [facility] Last Admin: 11/20/20 07:48 Dose: 88 mcg Documented by: Omeprazole (Omeprazole 20 Mg Cap.Cr) 20 mg PO BEDTIME [facility] Last Admin: 11/19/20 23:16 Dose: 20 mg Documented by: Ondansetron HCl (Ondansetron 4 Mg/2 Ml Sdv) 4 mg IVPUSH Q4H PRN PRN Reason: Nausea Last Admin: 11/20/20 11:06 Dose: 4 mg Documented by: Venlafaxine HCl (Venlafaxine 75 Mg Cap.Er) 150 mg PO DAILY [facility] Last Admin: 11/20/20 09:14 Dose: 150 mg Documented by: Discontinued Medications Sodium Chloride (Normal Saline) 1,000 mls @ 999 mls/hr IV STAT ONE Stop: 11/19/20 16:57 Last Admin: 11/19/20 16:32 Dose: 999 mls/hr Documented by: Potassium Chloride 40 meq/ (Premix) 100 mls @ 25 mls/hr IV ONETIME ONE Stop: 11/19/20 21:05 Last Admin: 11/19/20 17:47 Dose: 25 mls/hr Documented by: Sodium Chloride (Normal Saline) 1,000 mls @ 125 mls/hr IV STAT ONE Stop: 11/20/20 01:24 Last Infusion: 11/19/20 23:11 Dose: 999 mls/hr Documented by: Sodium Chloride (Normal Saline) 500 mls @ 250 mls/hr IV .BOLUS ONE Stop: 11/20/20 03:24 Last Admin: 11/20/20 01:46 Dose: 250 mls/hr Documented by: Omeprazole (Omeprazole 20 Mg Cap.Cr) 20 mg PO ACBREAKFAST LATOYA Ondansetron HCl (Ondansetron 4 Mg/2 Ml Sdv) 4 mg IVPUSH ONETIME ONE Stop: 11/19/20 15:58 Last Admin: 11/19/20 16:32 Dose: 4 mg Documented by: Potassium Chloride (Potassium Chloride 20 Meq Tab.Er) 40 meq PO ONETIME ONE Stop: 11/20/20 08:11 Last Admin: 11/20/20 09:14 Dose: 40 meq Documented by: - Exam General: Alert, Oriented Neck: Supple Lungs: Clear to Auscultation, Normal Respiratory Effort Cardiovascular: Regular Rate, Regular Rhythm GI/Abdominal Exam: Normal Bowel Sounds, Soft, Non-Tender Extremities: Non-Tender, No Pedal Edema Skin: Warm, Dry, Intact Neurological: No New Focal Deficit - Patient Data Lab Results Last 24 hrs: Laboratory Results - last 24 hr 11/19/20 11/19/20 11/19/20 Range/Units 16:08 16:08 16:25 WBC 7.56 (4.0-11.0) K/uL RBC 4.17 L (4.30-5.90) M/uL Hgb 12.5 (12.0-16.0) g/dL Hct 38.7 (36.0-46.0) % MCV 92.8 (80.0-98.0) fL MCH 30.0 (27.0-32.0) pg MCHC 32.3 (31.0-37.0) g/dL RDW Std Deviation 50.4 (28.0-62.0) fl RDW Coeff of Fernando 15 (11.0-15.0) % Plt Count 235 (150-400) K/uL MPV 8.80 (7.40-12.00) fL Neut % (Auto) 67.0 (48.0-80.0) % Lymph % (Auto) 29.4 (16.0-40.0) % Howard % (Auto) 3.4 (0.0-15.0) % Eos % (Auto) 0.1 (0.0-7.0) % Baso % (Auto) 0.1 (0.0-1.5) % Neut # (Auto) 5.1 (1.4-5.7) K/uL Lymph # (Auto) 2.2 (0.6-2.4) K/uL Howard # (Auto) 0.3 (0.0-0.8) K/uL Eos # (Auto) 0.0 (0.0-0.7) K/uL Baso # (Auto) 0.0 (0.0-0.1) K/uL Nucleated RBC % 0.0 /100WBC Nucleated RBCs # 0 K/uL Sodium 140 (136-145) mmol/L Potassium 2.9 L (3.5-5.1) mmol/L Chloride 100 (98-107) mmol/L Carbon Dioxide 29.3 (21.0-32.0) mmol/L BUN 17 (7.0-18.0) mg/dL Creatinine 1.4 H (0.6-1.0) mg/dL Est Cr Clr Drug Dosing 38.96 mL/min Estimated GFR (MDRD) 37.7 ml/min Glucose 128 H (74-106) mg/dL Lactic Acid 1.9 (0.4-2.0) mmol/L Calcium 8.8 (8.5-10.1) mg/dL Magnesium (1.8-2.4) mg/dL Total Bilirubin 0.5 (0.2-1.0) mg/dL AST 26 (15-37) IU/L ALT 36 (14-63) IU/L Alkaline Phosphatase 67 (46-116) U/L Troponin I < 0.050 (0.000-0.056) ng/mL Total Protein 7.4 (6.4-8.2) g/dL Albumin 3.1 L (3.4-5.0) g/dL Globulin 4.3 H (2.6-4.0) g/dL Albumin/Globulin Ratio 0.7 L (0.9-1.6) Urine Color Urine Appearance Urine pH (5.0-8.0) Ur Specific [place] (1.001-1.035) Urine Protein (NEGATIVE) mg/dL Urine Glucose (UA) (NEGATIVE) mg/dL Urine Ketones (NEGATIVE) mg/dL Urine Occult Blood (NEGATIVE) Urine Nitrite (NEGATIVE) Urine Bilirubin (NEGATIVE) Urine Urobilinogen (<2.0) EU/dL Ur Leukocyte Esterase (NEGATIVE) SARS-CoV-2 RNA (DION) (NEGATIVE) 11/19/20 11/20/20 11/20/20 Range/Units 17:18 00:25 01:45 WBC (4.0-11.0) K/uL RBC (4.30-5.90) M/uL Hgb (12.0-16.0) g/dL Hct (36.0-46.0) % MCV (80.0-98.0) fL MCH (27.0-32.0) pg MCHC (31.0-37.0) g/dL RDW Std Deviation (28.0-62.0) fl RDW Coeff of Fernando (11.0-15.0) % Plt Count (150-400) K/uL MPV (7.40-12.00) fL Neut % (Auto) (48.0-80.0) % Lymph % (Auto) (16.0-40.0) % Howard % (Auto) (0.0-15.0) % Eos % (Auto) (0.0-7.0) % Baso % (Auto) (0.0-1.5) % Neut # (Auto) (1.4-5.7) K/uL Lymph # (Auto) (0.6-2.4) K/uL Howard # (Auto) (0.0-0.8) K/uL Eos # (Auto) (0.0-0.7) K/uL Baso # (Auto) (0.0-0.1) K/uL Nucleated RBC % /100WBC Nucleated RBCs # K/uL Sodium 139 (136-145) mmol/L Potassium 3.2 L (3.5-5.1) mmol/L Chloride 104 (98-107) mmol/L Carbon Dioxide 29.9 (21.0-32.0) mmol/L BUN 19 H (7.0-18.0) mg/dL Creatinine 1.2 H (0.6-1.0) mg/dL Est Cr Clr Drug Dosing 45.45 mL/min Estimated GFR (MDRD) 45.1 ml/min Glucose 100 (74-106) mg/dL Lactic Acid 0.5 (0.4-2.0) mmol/L Calcium 7.8 L (8.5-10.1) mg/dL Magnesium (1.8-2.4) mg/dL Total Bilirubin (0.2-1.0) mg/dL AST (15-37) IU/L ALT (14-63) IU/L Alkaline Phosphatase (46-116) U/L Troponin I (0.000-0.056) ng/mL Total Protein (6.4-8.2) g/dL Albumin (3.4-5.0) g/dL Globulin (2.6-4.0) g/dL Albumin/Globulin Ratio (0.9-1.6) Urine Color Urine Appearance Urine pH (5.0-8.0) Ur Specific [place] (1.001-1.035) Urine Protein (NEGATIVE) mg/dL Urine Glucose (UA) (NEGATIVE) mg/dL Urine Ketones (NEGATIVE) mg/dL Urine Occult Blood (NEGATIVE) Urine Nitrite (NEGATIVE) Urine Bilirubin (NEGATIVE) Urine Urobilinogen (<2.0) EU/dL Ur Leukocyte Esterase (NEGATIVE) SARS-CoV-2 RNA (DION) POSITIVE H (NEGATIVE) 11/20/20 11/20/20 11/20/20 Range/Units 05:25 05:30 05:30 WBC 8.05 (4.0-11.0) K/uL RBC 3.66 L (4.30-5.90) M/uL Hgb 10.8 L (12.0-16.0) g/dL Hct 34.1 L (36.0-46.0) % MCV 93.2 (80.0-98.0) fL MCH 29.5 (27.0-32.0) pg MCHC 31.7 (31.0-37.0) g/dL RDW Std Deviation 51.8 (28.0-62.0) fl RDW Coeff of Fernando 15 (11.0-15.0) % Plt Count 228 (150-400) K/uL MPV 9.20 (7.40-12.00) fL Neut % (Auto) 66.9 (48.0-80.0) % Lymph % (Auto) 27.5 (16.0-40.0) % Howard % (Auto) 5.0 (0.0-15.0) % Eos % (Auto) 0.5 (0.0-7.0) % Baso % (Auto) 0.1 (0.0-1.5) % Neut # (Auto) 5.4 (1.4-5.7) K/uL Lymph # (Auto) 2.2 (0.6-2.4) K/uL Howard # (Auto) 0.4 (0.0-0.8) K/uL Eos # (Auto) 0.0 (0.0-0.7) K/uL Baso # (Auto) 0.0 (0.0-0.1) K/uL Nucleated RBC % 0.0 /100WBC Nucleated RBCs # 0 K/uL Sodium 140 (136-145) mmol/L Potassium 3.6 (3.5-5.1) mmol/L Chloride 105 (98-107) mmol/L Carbon Dioxide 28.7 (21.0-32.0) mmol/L BUN 17 (7.0-18.0) mg/dL Creatinine 1.2 H (0.6-1.0) mg/dL Est Cr Clr Drug Dosing 45.45 mL/min Estimated GFR (MDRD) 45.1 ml/min Glucose 95 (74-106) mg/dL Lactic Acid (0.4-2.0) mmol/L Calcium 8.0 L (8.5-10.1) mg/dL Magnesium 1.8 (1.8-2.4) mg/dL Total Bilirubin 0.4 (0.2-1.0) mg/dL AST 24 (15-37) IU/L ALT 33 (14-63) IU/L Alkaline Phosphatase 54 (46-116) U/L Troponin I (0.000-0.056) ng/mL Total Protein 6.4 (6.4-8.2) g/dL Albumin 2.5 L (3.4-5.0) g/dL Globulin 3.9 (2.6-4.0) g/dL Albumin/Globulin Ratio 0.6 L (0.9-1.6) Urine Color Urine Appearance Urine pH (5.0-8.0) Ur Specific [place] (1.001-1.035) Urine Protein (NEGATIVE) mg/dL Urine Glucose (UA) (NEGATIVE) mg/dL Urine Ketones (NEGATIVE) mg/dL Urine Occult Blood (NEGATIVE) Urine Nitrite (NEGATIVE) Urine Bilirubin (NEGATIVE) Urine Urobilinogen (<2.0) EU/dL Ur Leukocyte Esterase (NEGATIVE) SARS-CoV-2 RNA (DION) (NEGATIVE) 11/20/20 Range/Units 06:15 WBC (4.0-11.0) K/uL RBC (4.30-5.90) M/uL Hgb (12.0-16.0) g/dL Hct (36.0-46.0) % MCV (80.0-98.0) fL MCH (27.0-32.0) pg MCHC (31.0-37.0) g/dL RDW Std Deviation (28.0-62.0) fl RDW Coeff of Fernando (11.0-15.0) % Plt Count (150-400) K/uL MPV (7.40-12.00) fL Neut % (Auto) (48.0-80.0) % Lymph % (Auto) (16.0-40.0) % Howard % (Auto) (0.0-15.0) % Eos % (Auto) (0.0-7.0) % Baso % (Auto) (0.0-1.5) % Neut # (Auto) (1.4-5.7) K/uL Lymph # (Auto) (0.6-2.4) K/uL Howard # (Auto) (0.0-0.8) K/uL Eos # (Auto) (0.0-0.7) K/uL Baso # (Auto) (0.0-0.1) K/uL Nucleated RBC % /100WBC Nucleated RBCs # K/uL Sodium (136-145) mmol/L Potassium (3.5-5.1) mmol/L Chloride (98-107) mmol/L Carbon Dioxide (21.0-32.0) mmol/L BUN (7.0-18.0) mg/dL Creatinine (0.6-1.0) mg/dL Est Cr Clr Drug Dosing mL/min Estimated GFR (MDRD) ml/min Glucose (74-106) mg/dL Lactic Acid (0.4-2.0) mmol/L Calcium (8.5-10.1) mg/dL Magnesium (1.8-2.4) mg/dL Total Bilirubin (0.2-1.0) mg/dL AST (15-37) IU/L ALT (14-63) IU/L Alkaline Phosphatase (46-116) U/L Troponin I (0.000-0.056) ng/mL Total Protein (6.4-8.2) g/dL Albumin (3.4-5.0) g/dL Globulin (2.6-4.0) g/dL Albumin/Globulin Ratio (0.9-1.6) Urine Color YELLOW Urine Appearance CLEAR Urine pH 6.0 (5.0-8.0) Ur Specific [place] 1.015 (1.001-1.035) Urine Protein NEGATIVE (NEGATIVE) mg/dL Urine Glucose (UA) NEGATIVE (NEGATIVE) mg/dL Urine Ketones NEGATIVE (NEGATIVE) mg/dL Urine Occult Blood NEGATIVE (NEGATIVE) Urine Nitrite NEGATIVE (NEGATIVE) Urine Bilirubin NEGATIVE (NEGATIVE) Urine Urobilinogen 0.2 (<2.0) EU/dL Ur Leukocyte Esterase NEGATIVE (NEGATIVE) SARS-CoV-2 RNA (DION) (NEGATIVE) Result Diagrams: 11/20/20 05:30 11/20/20 05:30 Sepsis Event Note - Evaluation Sepsis Screening Result: No Definite Risk - Focused Exam Vital Signs: Vital Signs Temp Pulse Resp BP Pulse Ox 11/20/20 13:32 37.2 C 80 18 117/57 L 95 11/20/20 09:00 37.7 C 81 106/53 L 94 L 11/20/20 03:57 102/60 11/20/20 03:56 36.7 C 66 20 101/55 L 94 L - Problem List Review Problem List Initiated/Reviewed/Updated: Yes - My Orders Last 24 Hours: My Active Orders 11/19/20 17:18 Telemetry Monitoring [Cardiac Monitoring] [RC] Q8H 11/19/20 18:00 Enoxaparin [Lovenox] 40 mg SUBCUT Q24H 11/19/20 18:20 Oxygen Therapy [RC] PRN VTE/DVT Education [RC] PER UNIT ROUTINE Vital Signs [RC] Q4H Acetaminophen [TylenoL] 650 mg PO Q4H PRN Ondansetron [Zofran] 4 mg IVPUSH Q4H PRN Resuscitation Status Routine 11/19/20 18:21 Sequential Compression Device [OM.PC] Per Unit Routine 11/19/20 18:22 Antiembolic Devices [RC] PER UNIT ROUTINE 11/19/20 18:32 Communication Order [RC] ROUTINE 11/19/20 22:45 Omeprazole 20 mg PO BEDTIME 11/20/20 07:30 Levothyroxine [Synthroid] 88 mcg PO ACBRK 11/20/20 09:00 Venlafaxine [Effexor XR] 150 mg PO DAILY 11/20/20 14:30 Ibuprofen [Motrin] 600 mg PO Q8H PRN 11/21/20 05:11 BASIC METABOLIC PANEL,BMP [CHEM] AM CBC WITH AUTO DIFF [HEME] AM - Plan Plan:: 65 yo female admitted with COVID due to gastroenteritis, dehydration, acute kidney injury and hypokalemia. Slow improvement in symptoms. Hypokalemia and JEANIE improving. Treating with antiemetics
[2020-11-20] MEDS: Enoxaparin 40 MG/0.4 ML Syringe SUBCUT SCH (18:00)
[2020-11-20] MEDS: Ibuprofen 600 MG Tab PO PRN (18:25)
[2020-11-20] MEDS: Omeprazole 20 MG Cap.CR PO SCH (20:17)
[2020-11-21] MEDS: Ibuprofen 600 MG Tab PO PRN (05:55)
[2020-11-21] MEDS: Levothyroxine 88 MCG Tab PO SCH (06:33)
[2020-11-21 06:46] LABS: BLOOD UREA NITROGEN,BUN 10 mg/dL (7.0-18.0); CHLORIDE,CL 105 mmol/L (98-107); GLUCOSE RANDOM 96 mg/dL (74-106); POTASSIUM,K 3.4 mmol/L (3.5-5.1); SODIUM,NA 141 mmol/L (136-145)
[2020-11-21 08:14] VITALS: BP 108/55; PULSE 75
[2020-11-21] MEDS: Venlafaxine 75 MG Cap.ER PO SCH (09:37)
[2020-11-21] MEDS ORDERED: Docusate Sodium 100 MG Cap PO PRN (09:57)
[2020-11-21] MEDS ORDERED: Bisacodyl 10 MG Supp RECTAL ONE (09:57)
[2020-11-21] MEDS ORDERED: Potassium Chloride 20 MEQ Tab.ER PO ONE (09:57)
[2020-11-21] MEDS ORDERED: Bisacodyl 10 MG Supp RECTAL PRN (09:57)
--- NOTE | 2020-11-21 12:05 | PCM.DCSUM1 ---
Discharge Summary - Discharge Data Discharge Date: 11/21/20 Discharge Disposition: Home, Self-Care 01 Condition: Good - Referral to Home Health Primary Care Physician: Krystina Serrano MD - Patient Summary/Data Hospital Course: 65 yo female with pmh of hypothyroidism, hypertension, and depression who was diagnosed with COVID on 11/13/20. Patient reports she had had shortness of breath, cough, nausea and vomiting for three days before testing positive. She was vaccinated for COVID with Moderna in [facility]. She called her clinic and they told her to come to the ER for evaluation. She was noted to be satting 95% on Room air with BP in the 90s systolic. Creatinine was 1.4 and potassium was 2.9. Chest x-ray was clear. She was admitted for dehydration, acute kidney injury and hypokalemia. Her antihypertensive medications and lasix were held and she was given IV fluids. Her acute kidney injury and hypokalemia resolved. After three days she reports her nausea has resolved and she is ready for discharge. She was discharged home to have follow up with Krystina Serrano. - Patient Instructions Diet: Heart Healthy Diet Activity: As Tolerated Other/Special Instructions: Continue to isolate until the remainder of your quaratine. Hold your Losartan until follow up with Krystina Serrano. Check your blood pressure daily. If your blood pressure becomes elevated you may need to restart your Losartan. Resume your lasix in three days. Take daily weights and monitor for leg swelling as this may indicate you need to restart your lasix sooner. - Discharge Plan Home Medications: Home Meds Aspirin [Adult Aspirin Regimen] 81 mg PO DAILY 07/06/20 [History] Furosemide [Lasix] 120 mg PO DAILY 07/06/20 [History] Levothyroxine Sodium [Levoxyl] 88 mcg PO DAILY 07/06/20 [History] Potassium Chloride 10 meq PO BID 07/06/20 [History] Venlafaxine [Venlafaxine HCl ER] 150 mg PO DAILY 07/06/20 [History] carvediloL [Carvedilol] 25 mg PO BID 07/06/20 [History] clonazePAM [Clonazepam] 1 mg PO DAILY 07/06/20 [History] Estradiol Valerate [Delestrogen] 0 mg IM ASDIRECTED 08/10/20 [History] Biotin 2 each PO DAILY 11/19/20 [History] Cyanocobalamin (Vitamin B-12) [Cyanocobalamin] 1 syringe IM ASDIRECTED 11/19/20 [History] Desvenlafaxine Succinate [Desvenlafaxine Succinate ER] 50 mg PO DAILY 11/19/20 [History] Esomeprazole [NexIUM] 20 mg PO BEDTIME 11/19/20 [History] Multivitamin [Multi-Vitamin Daily] 2 each PO DAILY 11/19/20 [History] Patient Handouts: COVID-19, Symptoms of Coronavirus - [facility] (05/21/2020), Frequently Asked Questions About COVID-19 Vaccination - [facility] (07/24/2020), Infection Prevention in the Home Referrals: Krystina Serrano MD [Primary Care Provider] - 12/04/20 10:30 am - Discharge Summary/Plan Comment DC Time >30 min.: No Total # of Minutes for Discharge Time: 20 - Patient Data Vitals - Most Recent: Last Vital Signs Temp 36.5 C 11/21/20 08:00 Pulse 75 11/21/20 08:00 Resp 18 11/21/20 04:01 BP 108/55 L 11/21/20 08:00 Pulse Ox 95 11/21/20 08:00 Weight - Most Recent: 98.883 kg I&O - Last 24 hours: Intake & Output 11/20/20 11/21/20 11/21/20 22:59 06:59 14:59 Intake Total 625 550 Balance 625 550 Lab Results - Last 24 hrs: Laboratory Results - last 24 hr 11/21/20 11/21/20 Range/Units 05:35 05:35 WBC 8.31 (4.0-11.0) K/uL RBC 3.62 L (4.30-5.90) M/uL Hgb 10.8 L (12.0-16.0) g/dL Hct 33.5 L (36.0-46.0) % MCV 92.5 (80.0-98.0) fL MCH 29.8 (27.0-32.0) pg MCHC 32.2 (31.0-37.0) g/dL RDW Std Deviation 50.9 (28.0-62.0) fl RDW Coeff of Fernando 15 (11.0-15.0) % Plt Count 223 (150-400) K/uL MPV 9.00 (7.40-12.00) fL Neut % (Auto) 74.3 (48.0-80.0) % Lymph % (Auto) 20.9 (16.0-40.0) % [place] % (Auto) 4.5 (0.0-15.0) % Eos % (Auto) 0.2 (0.0-7.0) % Baso % (Auto) 0.1 (0.0-1.5) % Neut # (Auto) 6.2 H (1.4-5.7) K/uL Lymph # (Auto) 1.7 (0.6-2.4) K/uL [place] # (Auto) 0.4 (0.0-0.8) K/uL Eos # (Auto) 0.0 (0.0-0.7) K/uL Baso # (Auto) 0.0 (0.0-0.1) K/uL Nucleated RBC % 0.0 /100WBC Nucleated RBCs # 0 K/uL Sodium 141 (136-145) mmol/L Potassium 3.4 L (3.5-5.1) mmol/L Chloride 105 (98-107) mmol/L Carbon Dioxide 29.0 (21.0-32.0) mmol/L BUN 10 (7.0-18.0) mg/dL Creatinine 0.9 (0.6-1.0) mg/dL Est Cr Clr Drug Dosing 60.60 mL/min Estimated GFR (MDRD) > 60.0 ml/min Glucose 96 (74-106) mg/dL Calcium 8.6 (8.5-10.1) mg/dL Med Orders - Current: Current Medications Acetaminophen (Acetaminophen 325 Mg Tab) 650 mg PO Q4H PRN PRN Reason: Pain (Mild 1-3)/fever Last Admin: 11/20/20 05:05 Dose: 650 mg Documented by: Bisacodyl (Bisacodyl 10 Mg Supp) 10 mg RECTAL DAILY PRN PRN Reason: Constipation Docusate Sodium (Docusate Sodium 100 Mg Cap) 100 mg PO Q12H PRN PRN Reason: Constipation Enoxaparin Sodium (Enoxaparin 40 Mg/0.4 Ml Syringe) 40 mg SUBCUT Q24H [facility] Last Admin: 11/20/20 18:00 Dose: 40 mg Documented by: Ibuprofen (Ibuprofen 600 Mg Tab) 600 mg PO Q8H PRN PRN Reason: Pain Last Admin: 11/21/20 05:55 Dose: 600 mg Documented by: Levothyroxine Sodium (Levothyroxine 88 Mcg Tab) 88 mcg PO ACBRK [facility] Last Admin: 11/21/20 06:33 Dose: 88 mcg Documented by: Omeprazole (Omeprazole 20 Mg Cap.Cr) 20 mg PO BEDTIME [facility] Last Admin: 11/20/20 20:17 Dose: 20 mg Documented by: Ondansetron HCl (Ondansetron 4 Mg/2 Ml Sdv) 4 mg IVPUSH Q4H PRN PRN Reason: Nausea Last Admin: 11/20/20 16:47 Dose: 4 mg Documented by: Venlafaxine HCl (Venlafaxine 75 Mg Cap.Er) 150 mg PO DAILY [facility] Last Admin: 11/21/20 09:37 Dose: 150 mg Documented by: Discontinued Medications Bisacodyl (Bisacodyl 10 Mg Supp) 10 mg RECTAL ONETIME ONE Stop: 11/21/20 09:58 Last Admin: 11/21/20 10:49 Dose: 10 mg Documented by: Sodium Chloride (Normal Saline) 1,000 mls @ 999 mls/hr IV STAT ONE Stop: 11/19/20 16:57 Last Admin: 11/19/20 16:32 Dose: 999 mls/hr Documented by: Potassium Chloride 40 meq/ (Premix) 100 mls @ 25 mls/hr IV ONETIME ONE Stop: 11/19/20 21:05 Last Admin: 11/19/20 17:47 Dose: 25 mls/hr Documented by: Sodium Chloride (Normal Saline) 1,000 mls @ 125 mls/hr IV STAT ONE Stop: 11/20/20 01:24 Last Infusion: 11/19/20 23:11 Dose: 999 mls/hr Documented by: Sodium Chloride (Normal Saline) 500 mls @ 250 mls/hr IV .BOLUS ONE Stop: 11/20/20 03:24 Last Admin: 11/20/20 01:46 Dose: 250 mls/hr Documented by: Omeprazole (Omeprazole 20 Mg Cap.Cr) 20 mg PO ACBREAKFAST [facility] Ondansetron HCl (Ondansetron 4 Mg/2 Ml Sdv) 4 mg IVPUSH ONETIME ONE Stop: 11/19/20 15:58 Last Admin: 11/19/20 16:32 Dose: 4 mg Documented by: Potassium Chloride (Potassium Chloride 20 Meq Tab.Er) 40 meq PO ONETIME ONE Stop: 11/20/20 08:11 Last Admin: 11/20/20 09:14 Dose: 40 meq Documented by: Potassium Chloride (Potassium Chloride 20 Meq Tab.Er) 40 meq PO ONETIME ONE Stop: 11/21/20 09:58 Last Admin: 11/21/20 10:48 Dose: 40 meq Documented by:
== END 2020-11-21 13:10 | disposition home or self-care (01) | DRG 137 ==
LOC: MW.ED 15:25 → MW.MS 17:10 → OBSVTOIN 18:21 → MW.MS 18:22
PROVIDERS: ADMIT Internal Medicine; ATTEND Internal Medicine
DX: U07.1 COVID-19 (principal); E87.6 Hypokalemia; N17.9 Acute kidney failure, unspecified; A08.39 Other viral enteritis; I95.9 Hypotension, unspecified; I44.7 Left bundle-branch block, unspecified; E86.0 Dehydration; K57.90 Diverticulosis of intestine, part unspecified, without perforation or abscess without bleeding; K21.9 Gastro-esophageal reflux disease without esophagitis; F41.9 Anxiety disorder, unspecified; F32.9 Major depressive disorder, single episode, unspecified; E03.9 Hypothyroidism, unspecified; E66.9 Obesity, unspecified; I10 Essential (primary) hypertension; Z88.1 Allergy status to other antibiotic agents; Z79.82 Long term (current) use of aspirin; Z79.890 Hormone replacement therapy; Z79.899 Other long term (current) drug therapy; Z90.710 Acquired absence of both cervix and uterus; Z98.890 Other specified postprocedural states; Z98.51 Tubal ligation status
CPT/HCPCS: 36415; 71045; 71045-26; 80048; 80053; 81003; 83605; 83735; 84484; 85025; 93005; 96374; 99285-25; A9270-GY; J1650; J2405; J3480; J7030; U0002

== ENCOUNTER 2020-12-18 17:05 | Emergency (ER) | payer BC, OTHER ==
--- NOTE | 2020-12-18 17:36 | EDM.PDOC ---
<Jonnie Melendez - Last Filed: 12/18/20 19:08> ED HPI GENERAL MEDICAL PROBLEM - General Chief Complaint: Chest Pain Stated Complaint: [place] REFERRAL Time Seen by Provider: 12/18/20 17:07 Source of Information: Reports: Patient History Limitations: Reports: No Limitations - History of Present Illness INITIAL COMMENTS - FREE TEXT/NARRATIVE: Patient is a 65-year-old female who was sent over from [facility] for new left bundle branch block on EKG. When asked patient was taking her granddaughter to the clinic and she mentioned that she had some swelling above her ankles and they did a EKG and saw the new left bundle branch block. Patient history of CHF and when she was admitted for Covid they took her off her lisinopril and she has not had it since that time. She currently denies any new chest pain. Says she has some recurrent chest pain substernal due to coughing when she had a Covid but nothing new. No radiation. No chest pain with exertion no shortness of breath fever chills or other complaints. Bilateral Foot Pain Score (Numeric/FACES): 8 - Related Data Allergies Allergy/AdvReac Type Severity Reaction Status Date / Time ciprofloxacin [From Cipro] Allergy Swelling Verified 12/18/20 17:13 Home Meds: Home Meds Aspirin [Adult Aspirin Regimen] 81 mg PO DAILY 07/06/20 [History] Levothyroxine Sodium [Levoxyl] 88 mcg PO DAILY 07/06/20 [History] Potassium Chloride 10 meq PO BID 07/06/20 [History] Venlafaxine [Venlafaxine HCl ER] 150 mg PO DAILY 07/06/20 [History] carvediloL [Carvedilol] 25 mg PO BID 07/06/20 [History] clonazePAM [Clonazepam] 1 mg PO DAILY 07/06/20 [History] Estradiol Valerate [Delestrogen] 0 mg IM ASDIRECTED 08/10/20 [History] Biotin 2 each PO DAILY 11/19/20 [History] Cyanocobalamin (Vitamin B-12) [Cyanocobalamin] 1 syringe IM ASDIRECTED 11/19/20 [History] Esomeprazole [NexIUM] 20 mg PO BEDTIME 11/19/20 [History] Multivitamin [Multi-Vitamin Daily] 2 each PO DAILY 11/19/20 [History] Past Medical History HEENT History: Reports: Allergic Rhinitis, Other (See Below) Other HEENT History: wears glasses Cardiovascular History: Reports: Hypertension, Other (See Below) Other Cardiovascular History: left bundle branch block Respiratory History: Reports: None Gastrointestinal History: Reports: Colon Polyp, Diverticulosis, GERD Genitourinary History: Reports: None EMPLOYMENT OFFICER History: Reports: Musculoskeletal History: Reports: None Neurological History: Reports: None Psychiatric History: Reports: Anxiety, Depression Endocrine/Metabolic History: Reports: Hyperthyroidism, Hypothyroidism, Obesity/BMI 30+ Hematologic History: Reports: Blood Transfusion(s) Other Hematologic History: states transfusion as an Immunologic History: Reports: None Oncologic (Cancer) History: Reports: Thyroid Dermatologic History: Reports: Psoriasis - Infectious Disease History Infectious Disease History: Reports: None - Past Surgical History Head Surgeries/Procedures: Reports: None HEENT Surgical History: Reports: Naso-Sinus Surgery Cardiovascular Surgical History: Reports: None Respiratory Surgical History: Reports: None GI Surgical History: Reports: Colon, Colonoscopy, Other (See Below) Other GI Surgeries/Procedures: hx diverticulitis, colectomy for ruptured diverticulum Female Surgical History: Reports: Hysterectomy, Salpingo-Oophorectomy, Tubal Ligation Endocrine Surgical History: Reports: Thyroidectomy, Other (See Below) Other Endocrine Surgeries/Procedures: total thyroidectomy for thyroid cancer Neurological Surgical History: Reports: C-Spine, Lumbar Spine Other Neurological Surgeries/Procedures: neck and back surgery Musculoskeletal Surgical History: Reports: Arthroscopic Knee, Shoulder Surgery, Other (See Below) Other Musculoskeletal Surgeries/Procedures:: left bunionectomy, Oncologic Surgical History: Reports: None, Other (See Below) Other Oncologic Surgeries/Procedures: thyroidectomy Dermatological Surgical History: Reports: Plastic Surgical Reconstruction/Repair, Other (See Below) Social & Family History - Family History Family Medical History: No Pertinent Family History Oncologic: Reports: Colon - Tobacco Use Tobacco Use Status *Q: Never Tobacco User - Caffeine Use Caffeine Use: Reports: Soda, Tea Other Caffeine Use: daily diet coke - Recreational Drug Use Recreational Drug Use: No - Living Situation & Occupation Living situation: Reports: , with Family Occupation: Employed ED ROS GENERAL - Review of Systems Review Of Systems: See Below Constitutional: Reports: No Symptoms HEENT: Reports: No Symptoms Respiratory: Reports: No Symptoms Cardiovascular: Reports: Chest Pain Endocrine: Reports: No Symptoms GI/Abdominal: Reports: No Symptoms : Reports: No Symptoms Musculoskeletal: Reports: No Symptoms Skin: Reports: No Symptoms Neurological: Reports: No Symptoms Psychiatric: Reports: No Symptoms Hematologic/Lymphatic: Reports: No Symptoms Immunologic: Reports: No Symptoms ED EXAM, GENERAL - Physical Exam Exam: See Below Exam Limited By: No Limitations General Appearance: Alert, WD/WN, No Apparent Distress Eye Exam: Bilateral Eye: EOMI, PERRL Head: Atraumatic, Normocephalic Respiratory/Chest: No Respiratory Distress, Lungs Clear, Normal Breath Sounds Cardiovascular: Normal Peripheral Pulses, Regular Rate, Rhythm GI/Abdominal: Normal Bowel Sounds, Soft, Non-Tender Extremities: Normal Inspection, No Pedal Edema Neurological: Alert, Oriented, Normal Cognition, Normal Gait #1 Interpretation EKG Date: 12/18/20 Time: 17:13 Rhythm: Other (sinus wilian) Rate (Beats/Min): 59 QRS: LBBB QT: Normal Course - Re-Assessments/Exams Free Text/Narrative Re-Assessment/Exam: 12/18/20 19:08 Trop negative x1 D-dimer is elevated. Due to patient had pain for 2 months if tropes are negative x2 and CT PE negative patient can likely be discharged home. Departure - Departure Disposition: Home, Self-Care 01 Clinical Impression: Edema Instructions: Edema Referrals: Arun Ac [Primary Care Provider] - Forms: ED Department Discharge Additional Instructions: Return for any chest pain or shortness of breath or change or worsening condition. Follow-up with primary care doctor this week The following information is given to patients seen in the emergency department who are being discharged to home. This information is to outline your options for follow-up care. We provide all patients seen in our emergency department with a follow-up referral. The need for follow-up, as well as the timing and circumstances, are variable depending upon the specifics of your emergency department visit. If you don't have a primary care physician on staff, we will provide you with a referral. We always advise you to contact your personal physician following an emergency department visit to inform them of the circumstance of the visit and for follow-up with them and/or the need for any referrals to a consulting specialist. The emergency department will also refer you to a specialist when appropriate. This referral assures that you have the opportunity for follow-up care with a specialist. All of these measure are taken in an effort to provide you with optimal care, which includes your follow-up. Primary care clinics in the area: [facility] [address] [place] [address] [address] Under all circumstances we always encourage you to contact your private physician who remains a resource for coordinating your care. When calling for follow-up care, please make the office aware that this follow-up is from your recent emergency room visit. If for any reason you are refused follow-up, please contact the [facility] Emergency Department at and asked to speak to the emergency department charge nurse. Sepsis Event Note (ED) - Evaluation Sepsis Screening Result: No Definite Risk - Assessment/Plan Plan: 65-year-old female who presents today for new left bundle branch block on EKG. Patient mentions some vague chest pain that she has had for the past few months related to Covid from coughing no new chest pain no chest pain on exertion. Will obtain EKG labs and reassess patient. <Andrew Judge - Last Filed: 12/18/20 22:36> Course - Vital Signs Text/Narrative:: Patient signed out to me by Dr. Melendez. Patient was in the emergency department complaining of some lower extremity edema. Patient to me actually denies any sort of chest pain. EKG shows a left bundle branch block with negative modified Sgarbossa criteria. Delta troponin negative in this patient without any chest pain. Supportive treatment with return precautions and PCP follow-up Last Recorded V/S: Last Vital Signs Temp 36.6 C 12/18/20 17:16 Pulse 84 12/18/20 18:36 Resp 16 12/18/20 17:16 BP 124/50 L 12/18/20 18:36 Pulse Ox 94 L 12/18/20 18:36 - Orders/Labs/Meds Labs: Laboratory Tests 12/18/20 12/18/20 12/18/20 Range/Units 18:26 18:26 18:26 WBC 9.62 (4.0-11.0) K/uL RBC 3.39 L (4.30-5.90) M/uL Hgb 10.1 L (12.0-16.0) g/dL Hct 31.4 L (36.0-46.0) % MCV 92.6 (80.0-98.0) fL MCH 29.8 (27.0-32.0) pg MCHC 32.2 (31.0-37.0) g/dL RDW Std Deviation 50.2 (28.0-62.0) fl RDW Coeff of Fernando 15 (11.0-15.0) % Plt Count 281 (150-400) K/uL MPV 9.10 (7.40-12.00) fL Neut % (Auto) 51.2 (48.0-80.0) % Lymph % (Auto) 38.4 (16.0-40.0) % [place] % (Auto) 6.9 (0.0-15.0) % Eos % (Auto) 3.4 (0.0-7.0) % Baso % (Auto) 0.1 (0.0-1.5) % Neut # (Auto) 4.9 (1.4-5.7) K/uL Lymph # (Auto) 3.7 H (0.6-2.4) K/uL [place] # (Auto) 0.7 (0.0-0.8) K/uL Eos # (Auto) 0.3 (0.0-0.7) K/uL Baso # (Auto) 0.0 (0.0-0.1) K/uL Nucleated RBC % 0.0 /100WBC Nucleated RBCs # 0 K/uL INR 1.00 APTT 24.1 (18.6-31.3) SEC D-Dimer, Quantitative 0.88 H (0.0-0.50) mg/L FEU Sodium 142 (136-145) mmol/L Potassium 4.2 (3.5-5.1) mmol/L Chloride 108 H (98-107) mmol/L Carbon Dioxide 26.4 (21.0-32.0) mmol/L BUN 16 (7.0-18.0) mg/dL Creatinine 0.7 (0.6-1.0) mg/dL Est Cr Clr Drug Dosing 77.92 mL/min Estimated GFR (MDRD) > 60.0 ml/min Glucose 94 (74-106) mg/dL Calcium 9.5 (8.5-10.1) mg/dL Magnesium 1.8 (1.8-2.4) mg/dL Total Bilirubin 0.2 (0.2-1.0) mg/dL AST 23 (15-37) IU/L ALT 44 (14-63) IU/L Alkaline Phosphatase 81 (46-116) U/L Creatine Kinase 74 (26-308) U/L Troponin I < 0.050 (0.000-0.056) ng/mL Total Protein 6.7 (6.4-8.2) g/dL Albumin 2.7 L (3.4-5.0) g/dL Globulin 4.0 (2.6-4.0) g/dL Albumin/Globulin Ratio 0.7 L (0.9-1.6) Lipase 63 L (73-393) U/L 12/18/20 Range/Units 21:30 WBC (4.0-11.0) K/uL RBC (4.30-5.90) M/uL Hgb (12.0-16.0) g/dL Hct (36.0-46.0) % MCV (80.0-98.0) fL MCH (27.0-32.0) pg MCHC (31.0-37.0) g/dL RDW Std Deviation (28.0-62.0) fl RDW Coeff of Fernando (11.0-15.0) % Plt Count (150-400) K/uL MPV (7.40-12.00) fL Neut % (Auto) (48.0-80.0) % Lymph % (Auto) (16.0-40.0) % [place] % (Auto) (0.0-15.0) % Eos % (Auto) (0.0-7.0) % Baso % (Auto) (0.0-1.5) % Neut # (Auto) (1.4-5.7) K/uL Lymph # (Auto) (0.6-2.4) K/uL [place] # (Auto) (0.0-0.8) K/uL Eos # (Auto) (0.0-0.7) K/uL Baso # (Auto) (0.0-0.1) K/uL Nucleated RBC % /100WBC Nucleated RBCs # K/uL INR APTT (18.6-31.3) SEC D-Dimer, Quantitative (0.0-0.50) mg/L FEU Sodium (136-145) mmol/L Potassium (3.5-5.1) mmol/L Chloride (98-107) mmol/L Carbon Dioxide (21.0-32.0) mmol/L BUN (7.0-18.0) mg/dL Creatinine (0.6-1.0) mg/dL Est Cr Clr Drug Dosing mL/min Estimated GFR (MDRD) ml/min Glucose (74-106) mg/dL Calcium (8.5-10.1) mg/dL Magnesium (1.8-2.4) mg/dL Total Bilirubin (0.2-1.0) mg/dL AST (15-37) IU/L ALT (14-63) IU/L Alkaline Phosphatase (46-116) U/L Creatine Kinase (26-308) U/L Troponin I < 0.050 (0.000-0.056) ng/mL Total Protein (6.4-8.2) g/dL Albumin (3.4-5.0) g/dL Globulin (2.6-4.0) g/dL Albumin/Globulin Ratio (0.9-1.6) Lipase (73-393) U/L Meds: Medications Discontinued Medications Generic Name Dose Route Start Last Admin Trade Name Freq PRN Reason Stop Dose Admin Iopamidol 75 ml 12/18/20 19:28 12/18/20 19:58 Iopamidol 755 Mg/Ml 500 Ml Multipack Bottle IVPUSH 12/18/20 19:29 75 ml ONETIME ONE Administration Departure - Departure Time of Disposition: 22:35 Condition: Good Sepsis Event Note (ED) - Focused Exam Vital Signs: Vital Signs Temp Pulse Resp BP Pulse Ox 12/18/20 18:36 84 124/50 L 94 L 12/18/20 17:16 36.6 C 54 L 16 170/83 H 97
--- NOTE | 2020-12-18 17:59 | CR ---
INDICATION: chest pain TECHNIQUE: Chest 1 view. COMPARISON: 11/19/20 FINDINGS: Cardiovascular and mediastinum: Heart size and vasculature are normal in caliber and appearance. Mediastinum is within normal limits. Lungs and pleural space: Lungs are clear. No sign of infiltrate or mass. No sign of pleural effusion. No pneumothorax. Bones and soft tissues: No significant findings. IMPRESSION: Unremarkable chest. Dictated by: Neo Purdy MD @ 12/18/2020 17:54:09 (Electronically Signed)
[2020-12-18 18:52] LABS: BLOOD UREA NITROGEN,BUN 16 mg/dL (7.0-18.0); CARBON DIOXIDE,CO2 26.4 mmol/L (21.0-32.0); CHLORIDE,CL 108 mmol/L (98-107); GLUCOSE RANDOM 94 mg/dL (74-106); LIPASE 63 U/L (73-393); POTASSIUM,K 4.2 mmol/L (3.5-5.1); SODIUM,NA 142 mmol/L (136-145)
[2020-12-18] MEDS ORDERED: Iopamidol 755 MG/ML 500 ML Multipack Bottle IVPUSH ONE (19:28)
--- NOTE | 2020-12-18 20:21 | CT ---
INDICATION: Chest pain, elevated D-dimer TECHNIQUE: CT chest pulmonary PE protocol acquired with 75 cc Isovue 370 IV contrast. COMPARISON: Chest radiograph from earlier today FINDINGS: Cardiovascular structures: Normal vascular enhancement of the pulmonary arteries, no sign of pulmonary embolism. Heart size is normal. Coronary artery calcifications. No sign of aneurysm in the thoracic aorta. Mediastinum and gaurav: No mass or adenopathy. Lungs: 3 mm pulmonary nodule at the left lung apex image 13 series 402. Pleura and pericardium: No effusions. Chest wall and axilla: No mass or adenopathy. Upper abdomen: Simple cyst in the liver. Bones: No significant findings. IMPRESSION: No pulmonary embolism. Coronary artery disease. Left pulmonary nodule. Recommend follow-up per Fleischner society guidelines, as listed below. FLEISCHNER SOCIETY GUIDELINES - SOLID NODULES: SINGLE LOW RISK - nodule less than 6 mm: No routine follow-up. - nodule 6-8 mm: CT at 6-12 months, then consider CT at 18-24 months. - nodule greater than 8 mm: Consider CT at 3 months, PET/CT or tissue sampling. SINGLE HIGH RISK - nodule less than 6 mm: Optional CT at 12 months. - nodule 6-8 mm: CT at 6-12 months, then CT at 18-24 months. - nodule greater than 8 mm: Consider CT at 3 months, PET/CT or tissue sampling. Please note that all CT scans at this facility use dose modulation, iterative reconstruction, and/or weight-based dosing when appropriate to reduce radiation dose to as low as reasonably achievable. Dictated by Jessica Alfred MD @ 12/18/2020 8:17:33 PM (Electronically Signed)
[2020-12-18 23:04] VITALS: BP 146/66; PULSE 60
== END 2020-12-18 23:00 | disposition home or self-care (01) ==
LOC: MW.ED 17:05
DX: R60.0 Localized edema (principal); I10 Essential (primary) hypertension; K21.9 Gastro-esophageal reflux disease without esophagitis; E03.9 Hypothyroidism, unspecified; E66.9 Obesity, unspecified; Z68.36 Body mass index [BMI] 36.0-36.9, adult; Z88.1 Allergy status to other antibiotic agents; Z79.899 Other long term (current) drug therapy; Z79.82 Long term (current) use of aspirin
CPT/HCPCS: 36415; 71045; 71275; 80053; 82550; 83690; 83735; 84484; 85025; 85379; 85610; 85730; 93005; 99285; Q9967

== ENCOUNTER 2022-01-02 10:50 | Emergency (ER) | payer BC, OTHER ==
[2022-01-02] MEDS ORDERED: Sodium Chloride 0.9% 500 ML IV ONE (14:22)
[2022-01-02] MEDS ORDERED: Ketorolac 30 MG/ML SDV IVPUSH ONE (14:23)
[2022-01-02] MEDS ORDERED: Metoclopramide 10 MG/2 ML SDV IVPUSH ONE (14:24)
== END 2022-01-02 17:25 | disposition home or self-care (01) ==
LOC: MW.ED 10:50
DX: R06.02 Shortness of breath (principal); R05.9 Cough, unspecified
CPT/HCPCS: 71046; 96374; 96375; 99285; J1885; J2765; J7030

== ENCOUNTER 2023-10-22 07:30 | Day surgery (SDC) | payer BC, OTHER ==
[~2023-10-22 07:30] MED LIST changes: -Lactated Ringers 1,000 ML IV SCH; -Sodium Chloride 0.9% 10 ML SDV IV PRN; +Sodium Chloride 0.9% 20 ML SDV IV PRN
[2023-10-22] MEDS ORDERED: Ondansetron 4 MG/2 ML SDV ONE (08:17)
[2023-10-22] MEDS: Lactated Ringers 1,000 ML IV SCH (08:34)
[2023-10-22] MEDS ORDERED: Lidocaine 2% 5 ML SDV ONE (08:42)
[2023-10-22] MEDS ORDERED: Propofol 200 MG/20 ML SDV ONE ×2 (08:43→09:26)
[2023-10-22 10:39] VITALS: BP 90/54; PULSE 54
== END 2023-10-22 11:30 | disposition home or self-care (01) ==
LOC: MW.SDS 07:30
PROVIDERS: ATTEND Surgery
DX: K57.30 Diverticulosis of large intestine without perforation or abscess without bleeding (principal); K59.00 Constipation, unspecified; Z90.49 Acquired absence of other specified parts of digestive tract; Z87.891 Personal history of nicotine dependence; E03.9 Hypothyroidism, unspecified; Z88.8 Allergy status to other drugs, medicaments and biological substances; Z79.82 Long term (current) use of aspirin; Z79.899 Other long term (current) drug therapy; I11.0 Hypertensive heart disease with heart failure; I50.9 Heart failure, unspecified; K21.9 Gastro-esophageal reflux disease without esophagitis; E66.9 Obesity, unspecified; Z68.36 Body mass index [BMI] 36.0-36.9, adult
CPT/HCPCS: 45380; J2405; J2704; J7120; 00811; J3490

== ENCOUNTER 2024-02-14 19:55 | Emergency (ER) | payer BC, OTHER ==
[2024-02-14] MEDS ORDERED: oxyCODONE 5 MG Tab PO PRN (20:15)
[2024-02-14] MEDS ORDERED: Ondansetron 4 MG Tab.DIS PO PRN (20:15)
[2024-02-14] MEDS: Acetaminophen 500 MG Tab PO ONE (20:37)
[2024-02-14 21:49] VITALS: BP 114/65; PULSE 82
== END 2024-02-14 21:40 | disposition home or self-care (01) ==
LOC: MW.ED 19:55
DX: S09.90XA Unspecified injury of head, initial encounter (principal); S60.051A Contusion of right little finger without damage to nail, initial encounter; S30.0XXA Contusion of lower back and pelvis, initial encounter; I11.0 Hypertensive heart disease with heart failure; I50.9 Heart failure, unspecified; K21.9 Gastro-esophageal reflux disease without esophagitis; E03.9 Hypothyroidism, unspecified; E66.9 Obesity, unspecified; Z90.710 Acquired absence of both cervix and uterus; Z88.1 Allergy status to other antibiotic agents; Z88.8 Allergy status to other drugs, medicaments and biological substances; Z79.82 Long term (current) use of aspirin; Z79.890 Hormone replacement therapy; Z79.899 Other long term (current) drug therapy; W01.198A Fall on same level from slipping, tripping and stumbling with subsequent striking against other object, initial encounter
CPT/HCPCS: 70450; 73130; 82947; 99284; A9270

== ENCOUNTER 2024-03-26 08:28 | Emergency (ER) | payer BC, OTHER ==
[2024-03-26 08:44] VITALS: BP 133/70; PULSE 61
[2024-03-26] MEDS: Clindamycin HCl 150 MG Cap PO ONE (08:57)
== END 2024-03-26 09:15 | disposition home or self-care (01) ==
LOC: MW.ED 08:28
DX: S91.102A Unspecified open wound of left great toe without damage to nail, initial encounter (principal); I11.0 Hypertensive heart disease with heart failure; I50.9 Heart failure, unspecified; E66.9 Obesity, unspecified; E03.9 Hypothyroidism, unspecified; Z88.1 Allergy status to other antibiotic agents; Z88.8 Allergy status to other drugs, medicaments and biological substances; Z79.82 Long term (current) use of aspirin; Z79.890 Hormone replacement therapy; Z79.899 Other long term (current) drug therapy; Z90.710 Acquired absence of both cervix and uterus; Z75.8 Other problems related to medical facilities and other health care; Z68.34 Body mass index [BMI] 34.0-34.9, adult; X58.XXXA Exposure to other specified factors, initial encounter
CPT/HCPCS: 73660; 99283; A9270; 99282